=== PATIENT | male | born 1980 | race American Indian/Alaskan Native ===

== ENCOUNTER 2017-02-11 12:25 | Emergency (ER) | payer MEDICAID, OTHER ==
[2017-02-11] MEDS ORDERED: Sodium Chloride 0.9% 1,000 ML IV ONE (12:34)
--- NOTE | 2017-02-11 12:38 | EDM.PDOC ---
ED HPI NEURO - General Chief Complaint: Neurological Problem Stated Complaint: IN BY [facility] Time Seen by Provider: 02/11/17 12:27 Source of Information: Reports: Patient, EMS History Limitations: Reports: No limitations - History of Present Illness INITIAL COMMENTS - FREE TEXT/NARRATIVE: 36 yo [place] Male w/ PMHx. Epilepsy brought in by Ambulance do to family witnessed seizure activity. Pt. takes Dilantin 200mg Q AM and 300mg Q PM. Pt. admits to alot of stress with recent of and not taking medication as prescribed. No trauma Symptom Onset Date: 02/11/17 Symptom Onset Time: 11:55 Timing/Duration: Reports: Hour(s): Location (Neuro Complaint): Reports: generalized Quality (Neuro Complaint): Reports: weakness Severity: moderate Context, General: Reports: Other (Not taking Dilantin as prescribed) Associated Symptoms: Reports: weakness - Related Data Allergies/ADRs: Allergies Allergy/AdvReac Type Severity Reaction Status Date / Time Penicillins Allergy Tachycardia Verified 02/11/17 12:36 Home Meds: Home Meds Phenytoin Sodium Extended [Dilantin] 200 mg PO ACBREAKFAST 12/30/14 [History] Acetaminophen [Tylenol Extra Strength] 1,000 mg PO Q12H 11/03/15 [History] Acetaminophen [Tylenol] 325 mg PO ASDIRECTED PRN 02/11/17 [History] Phenytoin Sodium Extended 300 mg PO BEDTIME 02/11/17 [History] Past Medical History - Past Health History Medical/Surgical History: Denies Medical/Surgical History HEENT History: Reports: None Cardiovascular History: Reports: None Respiratory History: Reports: None Gastrointestinal History: Reports: None Genitourinary History: Reports: None Musculoskeletal History: Reports: None Neurological History: Reports: Seizure Psychiatric History: Reports: None Endocrine/Metabolic History: Reports: None Hematologic History: Reports: None Immunologic History: Reports: None Oncologic (Cancer) History: Reports: None Dermatologic History: Reports: None - Past Surgical History HEENT Surgical History: Reports: Other (see below) Other HEENT Surgeries/Procedures: top teeth removed Social & Family History - Tobacco Use Smoking Status *Q: Never Smoker Years of Tobacco use: 9 Used Tobacco, but Quit: Yes Month Tobacco Last Used: Second Hand Smoke Exposure: No - Alcohol Use Days Per Week of Alcohol Use: 0 - Recreational Drug Use Recreational Drug Use: No - Living Situation & Occupation Living situation: Reports: with family Occupation: employed ED ROS GENERAL - Review of Systems Review Of Systems: See Below Constitutional: Reports: weakness, decreased appetite HEENT: Reports: No symptoms Respiratory: Reports: No Symptoms Cardiovascular: Reports: No symptoms Endocrine: Reports: no symptoms GI/Abdominal: Reports: No symptoms : Reports: no symptoms Musculoskeletal: Reports: no symptoms Skin: Reports: no symptoms Neurological: Reports: Weakness Psychiatric: Reports: Depression (recent of do to cancer 02/01/2017) Hematologic/Lymphatic: Reports: no symptoms Immunologic: Reports: no symptoms ED EXAM, NEURO - Physical Exam Exam: See Below Exam Limited By: No limitations General Appearance: alert, lethargic, obese Eye Exam: bilateral eye: EOMI, PERRL Ears: normal external exam Nose: normal inspection Throat/Mouth: Normal inspection, Normal lips Head Exam: atraumatic, normocephalic Neck: normal inspection, supple Respiratory/Chest: no respiratory distress, lungs clear, no accessory muscle use Cardiovascular: normal peripheral pulses, regular rate, rhythm, no edema GI/Abdominal: normal bowel sounds, soft, non tender Neurological: alert, normal dorsiflexion, CN II-XII intact, normal plantar flexion, oriented x 3 DTR: 2+: bicep (R), bicep (L), tricep (R), tricep (L), patella (R), patella (L) , achilles (R), achilles (L) Back Exam: normal inspection Extremities: normal inspection, normal range of motion Psychiatric: depressed mood (recent of 02/01/2017) Skin Exam: Warm, Normal color, No rash Course - Vital Signs Text/Narrative:: Discussed with patient Last Recorded V/S: Last Vital Signs Temp 36.1 C 02/11/17 12:29 Pulse 63 02/11/17 14:58 Resp 20 02/11/17 14:58 BP 137/87 02/11/17 14:58 Pulse Ox 98 02/11/17 14:58 - Orders/Labs/Meds Labs: Laboratory Tests 02/11/17 02/11/17 02/11/17 Range/Units 12:45 12:45 14:15 WBC 6.7 (5.0-10.0) 10^3/uL RBC 5.02 (4.6-6.2) 10^6/uL Hgb 14.3 (14.0-18.0) g/dL Hct 43.3 (40.0-54.0) % MCV 86.3 (80-100) fL MCH 28.5 (27.0-34.0) pg MCHC 33.0 (33.0-35.0) g/dL Plt Count 218 (150-450) 10^3/uL Neut % (Auto) 68.6 (42.2-75.2) % Lymph % (Auto) 18.4 L (20.5-50.1) % [place] % (Auto) 7.7 (2-8) % Eos % (Auto) 5.2 H (1.0-3.0) % Baso % (Auto) 0.1 (0.0-1.0) % Sodium 138 (135-145) mmol/L Potassium 4.1 (3.6-5.0) mmol/L Chloride 105 (101-111) mmol/L Carbon Dioxide 26.0 (21.0-31.0) mmol/L Anion Gap 11.1 BUN 10 (7-18) mg/dL Creatinine 0.8 (0.6-1.3) mg/dL Est Cr Clr Drug Dosing TNP Estimated GFR (MDRD) > 60 BUN/Creatinine Ratio 12.50 Glucose 97 (74-105) mg/dL Calcium 8.5 (8.4-10.2) mg/dl Total Bilirubin 0.4 (0.2-1.0) mg/dL AST 29 (10-42) IU/L ALT 40 (10-60) IU/L Alkaline Phosphatase 111 (42-121) IU/L Total Protein 7.0 (6.7-8.2) g/dl Albumin 3.9 (3.2-5.5) g/dl Globulin 3.1 Albumin/Globulin Ratio 1.26 Urine Color Yellow (YELLOW) Urine Appearance Slightly cloudy (CLEAR) Urine pH 5.5 (5.0-9.0) Ur Specific [place] 1.015 (1.005-1.030) Urine Protein Negative (NEGATIVE) Urine Glucose (UA) Negative (NEGATIVE) Urine Ketones Negative (NEGATIVE) Urine Occult Blood Negative (NEGATIVE) Urine Nitrite Negative (NEGATIVE) Urine Bilirubin Negative (NEGATIVE) Urine Urobilinogen 0.2 (0.2-1.0) mg/dL Ur Leukocyte Esterase Negative (NEGATIVE) Urine RBC 0-5 /HPF Urine WBC 0-5 (0-5/HPF) /HPF Ur Epithelial Cells Few /HPF Urine Bacteria Rare (0-FEW/HPF) /HPF Urine Mucus Few H /LPF Urine Opiates Screen (NEGATIVE) Ur Oxycodone Screen (NEGATIVE) Urine Methadone Screen (NEGATIVE) Ur Barbiturates Screen (NEGATIVE) Phenytoin < 2.5 L (10-20) ug/dL U Tricyclic Antidepress (NEGATIVE) Ur Phencyclidine Scrn (NEGATIVE) Ur Amphetamine Screen (NEGATIVE) U Methamphetamines Scrn (NEGATIVE) Urine MDMA Screen (NEGATIVE) U Benzodiazepines Scrn (NEGATIVE) Urine Cocaine Screen (NEGATIVE) U Marijuana (THC) Screen (NEGATIVE) 02/11/17 Range/Units 14:15 WBC (5.0-10.0) 10^3/uL RBC (4.6-6.2) 10^6/uL Hgb (14.0-18.0) g/dL Hct (40.0-54.0) % MCV (80-100) fL MCH (27.0-34.0) pg MCHC (33.0-35.0) g/dL Plt Count (150-450) 10^3/uL Neut % (Auto) (42.2-75.2) % Lymph % (Auto) (20.5-50.1) % [place] % (Auto) (2-8) % Eos % (Auto) (1.0-3.0) % Baso % (Auto) (0.0-1.0) % Sodium (135-145) mmol/L Potassium (3.6-5.0) mmol/L Chloride (101-111) mmol/L Carbon Dioxide (21.0-31.0) mmol/L Anion Gap BUN (7-18) mg/dL Creatinine (0.6-1.3) mg/dL Est Cr Clr Drug Dosing Estimated GFR (MDRD) BUN/Creatinine Ratio Glucose (74-105) mg/dL Calcium (8.4-10.2) mg/dl Total Bilirubin (0.2-1.0) mg/dL AST (10-42) IU/L ALT (10-60) IU/L Alkaline Phosphatase (42-121) IU/L Total Protein (6.7-8.2) g/dl Albumin (3.2-5.5) g/dl Globulin Albumin/Globulin Ratio Urine Color (YELLOW) Urine Appearance (CLEAR) Urine pH (5.0-9.0) Ur Specific [place] (1.005-1.030) Urine Protein (NEGATIVE) Urine Glucose (UA) (NEGATIVE) Urine Ketones (NEGATIVE) Urine Occult Blood (NEGATIVE) Urine Nitrite (NEGATIVE) Urine Bilirubin (NEGATIVE) Urine Urobilinogen (0.2-1.0) mg/dL Ur Leukocyte Esterase (NEGATIVE) Urine RBC /HPF Urine WBC (0-5/HPF) /HPF Ur Epithelial Cells /HPF Urine Bacteria (0-FEW/HPF) /HPF Urine Mucus /LPF Urine Opiates Screen Negative (NEGATIVE) Ur Oxycodone Screen Negative (NEGATIVE) Urine Methadone Screen Negative (NEGATIVE) Ur Barbiturates Screen Positive H (NEGATIVE) Phenytoin (10-20) ug/dL U Tricyclic Antidepress Negative (NEGATIVE) Ur Phencyclidine Scrn Negative (NEGATIVE) Ur Amphetamine Screen Negative (NEGATIVE) U Methamphetamines Scrn Negative (NEGATIVE) Urine MDMA Screen Negative (NEGATIVE) U Benzodiazepines Scrn Negative (NEGATIVE) Urine Cocaine Screen Negative (NEGATIVE) U Marijuana (THC) Screen Negative (NEGATIVE) Meds: Medications Discontinued Medications Generic Name Dose Route Start Last Admin Trade Name Skyler PRN Reason Stop Dose Admin Sodium Chloride 1,000 mls @ 999 mls/hr 02/11/17 12:34 02/11/17 13:02 Normal Saline IV 02/11/17 13:34 999 mls/hr .BOLUS ONE Administration Phenytoin Sodium 1,000 mg 02/11/17 12:47 02/11/17 13:19 Phenytoin IV 02/11/17 12:48 1,000 mg ONETIME ONE Administration Phenytoin Sodium Confirm 02/11/17 13:09 02/11/17 13:26 Phenytoin Administered 02/11/17 13:10 Not Given Dose 250 mg .ROUTE .STK-MED ONE Departure - Departure Time of Disposition: 15:04 Disposition: Home, Self-Care 01 Condition: good Clinical Impression: Generalized convulsive epilepsy, Non compliance w medication regimen Forms: ED Department Discharge Additional Instructions: Rest Please follow your Doctor's advice and take your Dilantin as prescribed only ( Daily) - 200mg Q AM and 300mg Q PM F/U w/ PCP
[2017-02-11] MEDS ORDERED: Phenytoin 250 MG/5 ML SDV IV ONE (12:47)
[2017-02-11 13:08] LABS: CHLORIDE,CL 105 mmol/L (101-111); SODIUM,NA 138 mmol/L (135-145)
[2017-02-11] MEDS ORDERED: Phenytoin 250 MG/5 ML SDV ONE (13:09)
[2017-02-11 15:00] VITALS: BP 137/87
== END 2017-02-11 15:12 | disposition home or self-care (01) ==
LOC: DL.ED 12:25
DX: G40.409 Other generalized epilepsy and epileptic syndromes, not intractable, without status epilepticus (principal); Z91.14 Patient's other noncompliance with medication regimen; Z88.0 Allergy status to penicillin; Z79.899 Other long term (current) drug therapy
CPT/HCPCS: 36415; 80053; 80185; 80305; 81001; 85025; 96365; 96366; 99285; J1165; J7030; 99284

== ENCOUNTER 2017-05-10 23:34 | Emergency (ER) | payer OTHER ==
[2017-05-10 23:50] VITALS: BP 140/75
[2017-05-11] MEDS ORDERED: Aspirin 81 MG Tab.Chew PO ONE (00:09)
[2017-05-11 00:20] LABS: CHLORIDE,CL 109 mmol/L (101-111); SODIUM,NA 142 mmol/L (135-145)
--- NOTE | 2017-05-11 00:42 | EDM.PDOC ---
ED HPI GENERAL MEDICAL PROBLEM - General Chief Complaint: Chest Pain Stated Complaint: CHEST PAIN Time Seen by Provider: 05/10/17 23:40 Source of Information: Reports: Patient History Limitations: Reports: No Limitations - History of Present Illness INITIAL COMMENTS - FREE TEXT/NARRATIVE: c/o left sided chest pain with cough for 2 days, worse with coughing or movement , describes as sharp and constant. No productive cough, Smoker. occasional chills, no known fever. Sinus congestion with PND.Mild sore throat Location: Reports: Chest Left Anterior Chest Pain Score (Numeric/FACES): 7 - Related Data Allergies Allergy/AdvReac Type Severity Reaction Status Date / Time Penicillins Allergy Tachycardia Verified 05/10/17 23:51 Home Meds: Home Meds Phenytoin Sodium Extended [Dilantin] 200 mg PO ACBREAKFAST 12/30/14 [History] Acetaminophen [Tylenol Extra Strength] 1,000 mg PO Q12H 11/03/15 [History] Acetaminophen [Tylenol] 325 mg PO ASDIRECTED PRN 02/11/17 [History] Phenytoin Sodium Extended 300 mg PO BEDTIME 02/11/17 [History] Past Medical History - Past Health History Medical/Surgical History: Denies Medical/Surgical History HEENT History: Reports: None Cardiovascular History: Reports: None Respiratory History: Reports: None Gastrointestinal History: Reports: None Genitourinary History: Reports: None Musculoskeletal History: Reports: None Neurological History: Reports: Seizure Psychiatric History: Reports: None Endocrine/Metabolic History: Reports: None Hematologic History: Reports: None Immunologic History: Reports: None Oncologic (Cancer) History: Reports: None Dermatologic History: Reports: None - Infectious Disease History Infectious Disease History: Reports: None - Past Surgical History Head Surgeries/Procedures: Reports: None HEENT Surgical History: Reports: Other (See Below) Social & Family History - Tobacco Use Smoking Status *Q: Current Every Day Smoker Years of Tobacco use: 4 Packs/Tins Daily: 4 Used Tobacco, but Quit: Yes Month Tobacco Last Used: Second Hand Smoke Exposure: No - Caffeine Use Caffeine Use: Reports: Coffee, Energy Drinks, Soda, Tea - Alcohol Use Days Per Week of Alcohol Use: 0 - Recreational Drug Use Recreational Drug Use: No - Living Situation & Occupation Living situation: Reports: with Family Occupation: Employed ED ROS GENERAL - Review of Systems Review Of Systems: ROS reveals no pertinent complaints other than HPI. ED EXAM, GENERAL - Physical Exam Exam: See Below Exam Limited By: No Limitations General Appearance: Alert, Anxious, Mild Distress Eye Exam: Bilateral Eye: EOMI, PERRL Ears: Normal External Exam Nose: Normal Inspection Throat/Mouth: Normal Inspection, Normal Lips, Normal Oropharynx Head: Atraumatic, Normocephalic Neck: Normal Inspection, Non-Tender, Full Range of Motion Respiratory/Chest: No Respiratory Distress, Lungs Clear, Normal Breath Sounds Cardiovascular: Normal Peripheral Pulses, Regular Rate, Rhythm GI/Abdominal: Normal Bowel Sounds (Male) Exam: No Hernia Rectal (Males) Exam: Normal Exam, Normal Rectal Tone Neurological: Alert, Oriented, Normal Cognition Psychiatric: Normal Affect Skin Exam: Warm, Dry, Intact, Normal Color, No Rash Course - Vital Signs Last Recorded V/S: Last Vital Signs Temp 96.8 F 05/10/17 23:39 Pulse 63 05/10/17 23:39 Resp 21 H 05/10/17 23:39 BP 140/75 05/10/17 23:39 Pulse Ox 100 05/10/17 23:39 - Orders/Labs/Meds Labs: Laboratory Tests 05/10/17 05/10/17 Range/Units 23:50 23:50 WBC 9.5 (5.0-10.0) 10^3/uL RBC 5.11 (4.6-6.2) 10^6/uL Hgb 14.6 (14.0-18.0) g/dL Hct 44.2 (40.0-54.0) % MCV 86.5 (80-100) fL MCH 28.6 (27.0-34.0) pg MCHC 33.0 (33.0-35.0) g/dL Plt Count 246 (150-450) 10^3/uL Neut % (Auto) 56.6 (42.2-75.2) % Lymph % (Auto) 26.3 (20.5-50.1) % [place] % (Auto) 9.3 H (2-8) % Eos % (Auto) 7.6 H (1.0-3.0) % Baso % (Auto) 0.2 (0.0-1.0) % Sodium 142 (135-145) mmol/L Potassium 3.8 (3.6-5.0) mmol/L Chloride 109 (101-111) mmol/L Carbon Dioxide 22.0 (21.0-31.0) mmol/L Anion Gap 14.8 BUN 12 (7-18) mg/dL Creatinine 0.6 (0.6-1.3) mg/dL Est Cr Clr Drug Dosing 181.28 mL/min Estimated GFR (MDRD) > 60 BUN/Creatinine Ratio 20.00 Glucose 101 (74-105) mg/dL Calcium 8.4 (8.4-10.2) mg/dl Total Bilirubin 0.3 (0.2-1.0) mg/dL AST 22 (10-42) IU/L ALT 25 (10-60) IU/L Alkaline Phosphatase 128 H (42-121) IU/L Troponin I < 0.02 (0.00-0.02) ng/ml Total Protein 7.0 (6.7-8.2) g/dl Albumin 3.7 (3.2-5.5) g/dl Globulin 3.3 Albumin/Globulin Ratio 1.12 Amylase 49 (28-100) U/L Lipase 27 (22-51) U/L Meds: Medications Discontinued Medications Generic Name Dose Route Start Last Admin Trade Name Freq PRN Reason Stop Dose Admin Aspirin 324 mg 05/11/17 00:09 05/11/17 00:12 Aspirin PO 05/11/17 00:10 324 mg ONETIME ONE Administration Benzonatate 200 mg 05/11/17 00:43 05/11/17 00:47 Tessalon Perles PO 05/11/17 00:44 200 mg ONETIME ONE Administration - Radiology Interpretation Free Text/Narrative:: CXR no pneumonia Departure - Departure Time of Disposition: 00:37 Disposition: Home, Self-Care 01 Condition: Good Clinical Impression: URI (upper respiratory infection) Qualifiers: URI type: unspecified viral URI Qualified Code(s): J06.9 - Acute upper respiratory infection, unspecified - Discharge Information Instructions: Acute Bronchitis, [id number] Forms: ED Department Discharge Additional Instructions: increase fluids alternate tylenol and ibuprofen every 4 hours tesselon pearles 200mg every 8 hours as needed for cough muccinex or robitussin per package instructions. follow up in one week if continued cough
[2017-05-11] MEDS ORDERED: Benzonatate 100 MG Cap PO ONE (00:43)
--- NOTE | 2017-05-11 18:20 | EKG ---
05/10/2017 - OCTAVIANO MENESES - Netta reviewed the EKG and agree with the machine's reading. [facility] /[id number]
== END 2017-05-11 00:48 | disposition home or self-care (01) ==
LOC: DL.ED 23:34
DX: J06.9 Acute upper respiratory infection, unspecified (principal); F17.210 Nicotine dependence, cigarettes, uncomplicated; Z79.899 Other long term (current) drug therapy; Z88.0 Allergy status to penicillin
CPT/HCPCS: 36415; 71020; 80053; 82150; 83690; 84484; 85025; 99285; A9270

== ENCOUNTER 2017-07-19 20:11 | Emergency (ER) | payer OTHER ==
[2017-07-19 20:25] VITALS: BP 132/83
[2017-07-19] MEDS ORDERED: Albuterol/Ipratropium 3.0-0.5 MG/3 ML Neb Soln NEB ONE (20:42)
[2017-07-19] MEDS ORDERED: Codeine/Promethazine 10-6.25 MG/5 ML Syrup 5 ML UD Cup PO ONE (21:02)
[2017-07-19] MEDS ORDERED: Azithromycin 250 MG Tab PO ONE (21:02)
--- NOTE | 2017-07-19 21:07 | EDM.PDOC ---
ED HPI GENERAL MEDICAL PROBLEM - General Chief Complaint: ENT Problem Stated Complaint: HARD TO BREATH, BAD COLD, [id number] Time Seen by Provider: 07/19/17 21:02 Source of Information: Reports: Patient History Limitations: Reports: No Limitations - History of Present Illness INITIAL COMMENTS - FREE TEXT/NARRATIVE: sick past 3 days with cough congestion. Throat Pain Score (Numeric/FACES): 8 - Related Data Allergies Allergy/AdvReac Type Severity Reaction Status Date / Time Penicillins Allergy Tachycardia Verified 07/19/17 20:19 Home Meds: Home Meds Phenytoin Sodium Extended [Dilantin] 200 mg PO ACBREAKFAST 12/30/14 [History] Acetaminophen [Tylenol Extra Strength] 1,000 mg PO Q12H 11/03/15 [History] Acetaminophen [Tylenol] 325 mg PO ASDIRECTED PRN 02/11/17 [History] Phenytoin Sodium Extended 300 mg PO BEDTIME 02/11/17 [History] Past Medical History - Past Health History Medical/Surgical History: Denies Medical/Surgical History HEENT History: Reports: None Cardiovascular History: Reports: None Respiratory History: Reports: None Gastrointestinal History: Reports: None Genitourinary History: Reports: None Musculoskeletal History: Reports: None Neurological History: Reports: Seizure Psychiatric History: Reports: None Endocrine/Metabolic History: Reports: None Hematologic History: Reports: None Immunologic History: Reports: None Oncologic (Cancer) History: Reports: None Dermatologic History: Reports: None - Infectious Disease History Infectious Disease History: Reports: None - Past Surgical History Head Surgeries/Procedures: Reports: None HEENT Surgical History: Reports: Other (See Below) Other HEENT Surgeries/Procedures: teeth were surgically removed Social & Family History - Family History Family Medical History: Noncontributory - Tobacco Use Smoking Status *Q: Current Every Day Smoker Years of Tobacco use: 1 Packs/Tins Daily: 2 Used Tobacco, but Quit: Yes Month Tobacco Last Used: Second Hand Smoke Exposure: No - Caffeine Use Caffeine Use: Reports: Coffee, Soda - Alcohol Use Days Per Week of Alcohol Use: 0 - Recreational Drug Use Recreational Drug Use: No - Living Situation & Occupation Living situation: Reports: with Family Occupation: Employed ED ROS GENERAL - Review of Systems Review Of Systems: ROS reveals no pertinent complaints other than HPI. ED EXAM, GENERAL - Physical Exam Exam: See Below Exam Limited By: No Limitations General Appearance: Alert, WD/WN, Mild Distress, Other (cough spasms) Ears: Hearing Grossly Normal Throat/Mouth: Normal Voice, No Airway Compromise Head: Atraumatic Neck: Non-Tender, Full Range of Motion Respiratory/Chest: No Respiratory Distress, No Accessory Muscle Use, Decreased Breath Sounds, Rhonchi, Wheezing Cardiovascular: Regular Rate, Rhythm GI/Abdominal: Soft, Non-Tender Neurological: Alert, Oriented, Normal Cognition, Normal Gait, No Motor/Sensory Deficits Psychiatric: Flat Affect Skin Exam: Warm, Dry, Normal Color Lymphatic: No Adenopathy Course - Vital Signs Last Recorded V/S: Last Vital Signs Temp 37.4 C 07/19/17 20:24 Pulse 77 07/19/17 20:24 Resp 18 07/19/17 20:24 BP 132/83 07/19/17 20:24 Pulse Ox 98 07/19/17 20:24 - Orders/Labs/Meds Orders: Active Orders 24 hr Category Date Time Status RT Aerosol Therapy [RC] ASDIRECTED Care 07/19/17 20:42 Active Azithromycin [Zithromax] Med 07/19/17 21:02 Once 500 mg PO ONETIME ONE Codeine/Promethazine [Phenergan with Codeine] Med 07/19/17 21:02 Once 5 ml PO ONETIME ONE Meds: Medications Discontinued Medications Generic Name Dose Route Start Last Admin Trade Name Freq PRN Reason Stop Dose Admin Albuterol/Ipratropium 3 ml 07/19/17 20:42 07/19/17 20:49 Duoneb 3.0-0.5 Mg/3 Ml NEB 07/19/17 20:43 3 ml ONETIME ONE Administration - Re-Assessments/Exams Free Text/Narrative Re-Assessment/Exam: 07/19/17 21:05 s/p duoneb = 80% cleared Departure - Departure Time of Disposition: 21:05 Disposition: Home, Self-Care 01 Condition: Good Clinical Impression: Acute bronchitis with bronchospasm - Discharge Information Instructions: Acute Bronchitis, [id number] Additional Instructions: 1) rest 2) don't sleep flat at night 3) take neb 3 times daily for cough & wheeze 4) follow up at clinic or recheck as needed rx given; z-sage phenergan codeine syrup qid prn x 4 oz albuterol 2.5mg solution tid prn - My Orders Last 24 Hours: My Active Orders 07/19/17 20:42 RT Aerosol Therapy [RC] ASDIRECTED 07/19/17 21:02 Azithromycin [Zithromax] 500 mg PO ONETIME ONE Codeine/Promethazine [Phenergan with Codeine] 5 ml PO ONETIME ONE - Assessment/Plan Last 24 Hours: My Active Orders 07/19/17 20:42 RT Aerosol Therapy [RC] ASDIRECTED 07/19/17 21:02 Azithromycin [Zithromax] 500 mg PO ONETIME ONE Codeine/Promethazine [Phenergan with Codeine] 5 ml PO ONETIME ONE
== END 2017-07-19 21:11 | disposition home or self-care (01) ==
LOC: DL.ED 20:11
DX: J20.9 Acute bronchitis, unspecified (principal); F17.210 Nicotine dependence, cigarettes, uncomplicated; Z88.0 Allergy status to penicillin
CPT/HCPCS: 99283; A9270

== ENCOUNTER 2017-08-26 23:15 | Emergency (ER) | payer OTHER ==
[2017-08-26] MEDS ORDERED: Cyclobenzaprine 10 MG Tab PO ONE (23:16)
[2017-08-26] MEDS ORDERED: Acetaminophen/HYDROcodone 325-10 MG Tab PO ONE (23:16)
[2017-08-26 23:26] VITALS: BP 149/77
[2017-08-26] MEDS ORDERED: Ketorolac 30 MG/ML SDV IM ONE (23:46)
--- NOTE | 2017-08-26 23:52 | EDM.PDOC ---
ED HPI GENERAL MEDICAL PROBLEM - General Chief Complaint: Back Pain or Injury Stated Complaint: BACK PAIN Time Seen by Provider: 08/26/17 23:47 Source of Information: Reports: Patient History Limitations: Reports: No Limitations - History of Present Illness INITIAL COMMENTS - FREE TEXT/NARRATIVE: h/o LBP has MRI 2 years ago was told need to repeat and reschedule but they never called him back. works doing lot of lifting and back acted up again. Lower Back Pain Score (Numeric/FACES): 9 - Related Data Allergies Allergy/AdvReac Type Severity Reaction Status Date / Time Penicillins Allergy Tachycardia Verified 08/26/17 23:26 Home Meds: Home Meds Phenytoin Sodium Extended [Dilantin] 200 mg PO ACBREAKFAST 12/30/14 [History] Acetaminophen [Tylenol Extra Strength] 1,000 mg PO Q12H 11/03/15 [History] Acetaminophen [Tylenol] 325 mg PO ASDIRECTED PRN 02/11/17 [History] Phenytoin Sodium Extended 300 mg PO BEDTIME 02/11/17 [History] Past Medical History - Past Health History Medical/Surgical History: Denies Medical/Surgical History HEENT History: Reports: Impaired Vision Cardiovascular History: Reports: Hypertension Other Cardiovascular History: Stop taking medication 2 years ago- hypertension had resolved Respiratory History: Reports: None Gastrointestinal History: Reports: None Genitourinary History: Reports: None Musculoskeletal History: Reports: Arthritis, Back Pain, Chronic Neurological History: Reports: Seizure Other Neuro History: last seizure in december 2016 Psychiatric History: Reports: None Endocrine/Metabolic History: Reports: None Hematologic History: Reports: None Immunologic History: Reports: None Oncologic (Cancer) History: Reports: None Dermatologic History: Reports: None - Infectious Disease History Infectious Disease History: Reports: None - Past Surgical History Head Surgeries/Procedures: Reports: None HEENT Surgical History: Reports: Other (See Below) Other HEENT Surgeries/Procedures: teeth were surgically removed Social & Family History - Family History Family Medical History: Noncontributory - Tobacco Use Smoking Status *Q: Current Every Day Smoker Years of Tobacco use: 7 Packs/Tins Daily: 0.5 Used Tobacco, but Quit: Yes Month Tobacco Last Used: Second Hand Smoke Exposure: No - Caffeine Use Caffeine Use: Reports: Coffee - Alcohol Use Days Per Week of Alcohol Use: 0 - Recreational Drug Use Recreational Drug Use: No - Living Situation & Occupation Living situation: Reports: with Family Occupation: Employed ED ROS GENERAL - Review of Systems Review Of Systems: ROS reveals no pertinent complaints other than HPI. ED EXAM,LOWER BACK PAIN/INJURY - Physical Exam Exam: See Below Exam Limited By: No Limitations General Appearance: Alert, WD/WN, Mild Distress, Moderate Distress, Other (lbp) Ears: Hearing Grossly Normal Throat/Mouth: Normal Voice, No Airway Compromise Head: Atraumatic Neck: Non-Tender, Full Range of Motion Respiratory/Chest: No Respiratory Distress Cardiovascular: Regular Rate, Rhythm GI/Abdominal: Soft, Non-Tender Back Exam: Muscle Spasm, Paraspinal Tenderness, Other (bilat L2-3-4-5-S1 with radiculopathy, gait limited to pain) Neurological: Alert, Normal Mood/Affect, No Motor/Sensory Deficits Psychiatric: Tearful Skin Exam: Warm, Dry, Normal Color Lymphatic: No Adenopathy Course - Vital Signs Last Recorded V/S: Last Vital Signs Temp 36.0 C 08/26/17 23:21 Pulse 67 08/26/17 23:21 Resp 16 08/26/17 23:21 BP 149/77 H 08/26/17 23:21 Pulse Ox 98 08/26/17 23:21 - Orders/Labs/Meds Meds: Medications Discontinued Medications Generic Name Dose Route Start Last Admin Trade Name Skyler PRN Reason Stop Dose Admin Ketorolac Tromethamine 30 mg 08/26/17 23:46 Toradol IM 08/26/17 23:47 ONETIME ONE Departure - Departure Time of Disposition: 23:50 Disposition: Home, Self-Care 01 Condition: Good Clinical Impression: Degeneration of lumbosacral intervertebral disc, Lumbar radiculopathy, acute - Discharge Information Instructions: Back Pain, Adult, [id number] Additional Instructions: 1) rest 2) avoid bending lifting straining next 48 hours 3) try heat or ice to sore areas rx given; flexeril 10mg bid prn x 12 vicodin 5/325mg bid prn x 12
[2017-08-26] MEDS ORDERED: Cyclobenzaprine 10 MG Tab ONE (23:58)
[2017-08-26] MEDS ORDERED: Acetaminophen/HYDROcodone 325-10 MG Tab ONE (23:59)
== END 2017-08-27 00:03 | disposition home or self-care (01) ==
LOC: DL.ED 23:15
DX: M51.17 Intervertebral disc disorders with radiculopathy, lumbosacral region (principal); I10 Essential (primary) hypertension; F17.210 Nicotine dependence, cigarettes, uncomplicated; Z88.0 Allergy status to penicillin
CPT/HCPCS: 96372; 99283; A9270; J1885

== ENCOUNTER 2017-09-16 22:41 | Emergency (ER) | payer OTHER ==
[2017-09-16] MEDS ORDERED: Acetaminophen/HYDROcodone 325-10 MG Tab PO ONE (23:37)
--- NOTE | 2017-09-16 23:43 | EDM.PDOC ---
ED HPI GENERAL MEDICAL PROBLEM - General Chief Complaint: Skin Complaint Stated Complaint: PAIN IN BUTT AREA [id number] Time Seen by Provider: 09/16/17 23:38 Source of Information: Reports: Patient History Limitations: Reports: No Limitations - History of Present Illness INITIAL COMMENTS - FREE TEXT/NARRATIVE: c/o a palpable painful lump in rectum Left Rectal Pain Score (Numeric/FACES): 6 - Related Data Allergies Allergy/AdvReac Type Severity Reaction Status Date / Time Penicillins Allergy Tachycardia Verified 09/16/17 22:55 Home Meds: Home Meds Phenytoin Sodium Extended [Dilantin] 200 mg PO ACBREAKFAST 12/30/14 [History] Acetaminophen [Tylenol Extra Strength] 1,000 mg PO Q12H 11/03/15 [History] Acetaminophen [Tylenol] 325 mg PO ASDIRECTED PRN 02/11/17 [History] Phenytoin Sodium Extended 300 mg PO BEDTIME 02/11/17 [History] Past Medical History - Past Health History Medical/Surgical History: Denies Medical/Surgical History HEENT History: Reports: Impaired Vision Cardiovascular History: Reports: Hypertension Other Cardiovascular History: Stop taking medication 2 years ago- hypertension had resolved Respiratory History: Reports: None Gastrointestinal History: Reports: None Genitourinary History: Reports: None Musculoskeletal History: Reports: Arthritis, Back Pain, Chronic Neurological History: Reports: Seizure Other Neuro History: last seizure in december 2016 Psychiatric History: Reports: None Endocrine/Metabolic History: Reports: None Hematologic History: Reports: None Immunologic History: Reports: None Oncologic (Cancer) History: Reports: None Dermatologic History: Reports: None - Infectious Disease History Infectious Disease History: Reports: None - Past Surgical History Head Surgeries/Procedures: Reports: None HEENT Surgical History: Reports: Other (See Below) Other HEENT Surgeries/Procedures: teeth were surgically removed Social & Family History - Family History Family Medical History: Noncontributory - Tobacco Use Smoking Status *Q: Current Every Day Smoker Years of Tobacco use: 1 Packs/Tins Daily: 4 Used Tobacco, but Quit: Yes Month Tobacco Last Used: Second Hand Smoke Exposure: No - Caffeine Use Caffeine Use: Reports: Soda - Alcohol Use Days Per Week of Alcohol Use: 0 - Recreational Drug Use Recreational Drug Use: No - Living Situation & Occupation Living situation: Reports: with Family Occupation: Employed ED ROS GENERAL - Review of Systems Review Of Systems: ROS reveals no pertinent complaints other than HPI. ED EXAM, SKIN/RASH Exam: See Below Exam Limited By: No Limitations General Appearance: Alert, WD/WN, Mild Distress, Other (pain) Ears: Hearing Grossly Normal Throat/Mouth: Normal Voice, No Airway Compromise Head: Atraumatic Neck: Non-Tender, Full Range of Motion Respiratory/Chest: No Respiratory Distress Cardiovascular: Regular Rate, Rhythm GI/Abdominal: Soft, Non-Tender Rectal (Males) Exam: Hemorrhoids, Other (9 o'clock, 1/4" size) Neurological: Alert, Oriented, Normal Cognition, Normal Gait, No Motor/Sensory Deficits Psychiatric: Tearful Skin: Warm, Dry, Normal Color Lymphatic: No Adenopathy Course - Vital Signs Last Recorded V/S: Last Vital Signs Temp 36.3 C 09/16/17 22:49 Pulse 73 09/16/17 22:49 Resp 18 09/16/17 22:49 BP 129/66 09/16/17 22:49 Pulse Ox 99 09/16/17 22:49 - Orders/Labs/Meds Orders: Active Orders 24 hr Category Date Time Status Acetaminophen/HYDROcodone [[place] 325-10 MG] Med 09/16/17 23:37 Once 1 tab PO ONETIME ONE Departure - Departure Time of Disposition: 23:40 Disposition: Home, Self-Care 01 Condition: Good Clinical Impression: Acute hemorrhoid - Discharge Information Instructions: Hemorrhoids, [id number] Additional Instructions: 1) rest 2) sitz bath 3) see family doctor tomorrow for SURGICAL REFERRAL for HAEMORRHOID REMOVAL rx givne; anusol HC suppos daily x 1 week vicodin 5/325mg bid prn x 12 - My Orders Last 24 Hours: My Active Orders 09/16/17 23:37 Acetaminophen/HYDROcodone [[place] 325-10 MG] 1 tab PO ONETIME ONE - Assessment/Plan Last 24 Hours: My Active Orders 09/16/17 23:37 Acetaminophen/HYDROcodone [[place] 325-10 MG] 1 tab PO ONETIME ONE
[2017-09-16 23:52] VITALS: BP 125/66
== END 2017-09-16 23:48 | disposition home or self-care (01) ==
LOC: DL.ED 22:41
DX: K64.9 Unspecified hemorrhoids (principal); F17.210 Nicotine dependence, cigarettes, uncomplicated; Z88.0 Allergy status to penicillin
CPT/HCPCS: 99282; A9270

== ENCOUNTER 2017-12-28 22:05 | Emergency (ER) | payer OTHER ==
[2017-12-28 22:27] VITALS: BP 109/79
--- NOTE | 2017-12-28 22:32 | EDM.PDOC ---
ED HPI GENERAL MEDICAL PROBLEM - General Chief Complaint: Chest Pain Stated Complaint: PAIN IN CHEST/BACK [id number] Time Seen by Provider: 12/28/17 22:15 Source of Information: Reports: Patient History Limitations: Reports: No Limitations - History of Present Illness INITIAL COMMENTS - FREE TEXT/NARRATIVE: This 37 yo male patient reports to the ED with chest pain. The patient reports his pain started last night and is better today, but continues to hurt. The patient also reports his lower back pain is bothering him. The patient reports that his current pain is a 5/10, but his pain has different episodes of sharp pain. The patient reports most of the pain is over his heart. The patient reports he was at work when his pain started. The patient reports no history of trauma or falls. The patient does have a history of seizures, but no recent seizures. 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 Left Chest Pain Score (Numeric/FACES): 9 - Related Data Allergies Allergy/AdvReac Type Severity Reaction Status Date / Time Penicillins Allergy Tachycardia Verified 12/28/17 22:27 tramadol Allergy Other Verified 12/28/17 22:27 Home Meds: Home Meds Phenytoin Sodium Extended [Dilantin] 200 mg PO ACBREAKFAST 12/30/14 [History] Acetaminophen [Tylenol Extra Strength] 1,000 mg PO Q12H 11/03/15 [History] Acetaminophen [Tylenol] 650 mg PO Q6H PRN 02/11/17 [History] Phenytoin Sodium Extended 300 mg PO BEDTIME 02/11/17 [History] Triamcinolone Acetonide [Triamcinolone Acetonide 0.1% Oint] 1 applic TOP ASDIRECTED 10/15/17 [History] Past Medical History - Past Health History Medical/Surgical History: Denies Medical/Surgical History HEENT History: Reports: Impaired Vision Cardiovascular History: Reports: Hypertension Other Cardiovascular History: Stop taking medication 2 years ago- hypertension had resolved Respiratory History: Reports: None Gastrointestinal History: Reports: None Genitourinary History: Reports: None Musculoskeletal History: Reports: Arthritis, Back Pain, Chronic Neurological History: Reports: Seizure Other Neuro History: last seizure in when he had hemorrhoid surg Psychiatric History: Reports: None Endocrine/Metabolic History: Reports: None Hematologic History: Reports: None Immunologic History: Reports: None Oncologic (Cancer) History: Reports: None Dermatologic History: Reports: Eczema - Infectious Disease History Infectious Disease History: Reports: None - Past Surgical History Head Surgeries/Procedures: Reports: None HEENT Surgical History: Reports: Other (See Below) Other HEENT Surgeries/Procedures: teeth were surgically removed Cardiovascular Surgical History: Reports: None GI Surgical History: Reports: None Social & Family History - Family History Family Medical History: Noncontributory - Tobacco Use Smoking Status *Q: Former Smoker Years of Tobacco use: 5 Packs/Tins Daily: 4 Used Tobacco, but Quit: Yes Month Tobacco Last Used: Second Hand Smoke Exposure: Yes - Caffeine Use Caffeine Use: Reports: Soda Caffeine Use Comment: 5 cans - Alcohol Use Days Per Week of Alcohol Use: 0 - Recreational Drug Use Recreational Drug Use: No - Living Situation & Occupation Living situation: Reports: with Family Occupation: Employed ED ROS GENERAL - Review of Systems Review Of Systems: ROS reveals no pertinent complaints other than HPI. ED EXAM, GENERAL - Physical Exam Exam: See Below General Appearance: Alert, WD/WN, Mild Distress, Obese Eye Exam: Bilateral Eye: EOMI, Normal Inspection, PERRL Ears: Normal External Exam, Normal Canal, Hearing Grossly Normal, Normal TMs Nose: Normal Inspection, Normal Mucosa, No Blood Throat/Mouth: Normal Inspection Head: Atraumatic, Normocephalic Neck: Normal Inspection, Supple, Non-Tender, Full Range of Motion Respiratory/Chest: No Respiratory Distress, Lungs Clear, Normal Breath Sounds, No Accessory Muscle Use, Other (The patient has tenderness to palpation of the left pectoral musculature) Cardiovascular: Normal Peripheral Pulses, Regular Rate, Rhythm, No Edema, No Gallop, No JVD, No Murmur, No Rub GI/Abdominal: Normal Bowel Sounds, Soft, Non-Tender, No Organomegaly, No Distention, No Abnormal Bruit, No Mass, Other (obese) (Male) Exam: Deferred Rectal (Males) Exam: Deferred Back Exam: Normal Inspection, Full Range of Motion, NT Extremities: Normal Inspection, Normal Range of Motion, Non-Tender, Normal Capillary Refill, No Pedal Edema Neurological: Alert, Oriented, CN II-XII Intact, Normal Cognition, Normal Gait Psychiatric: Anxious Skin Exam: Warm, Dry, Intact, Normal Color, No Rash Lymphatic: No Adenopathy Course - Vital Signs Last Recorded V/S: Last Vital Signs Temp 36.3 C 12/28/17 22:25 Pulse 52 L 12/28/17 22:25 Resp 21 H 12/28/17 22:25 BP 109/79 12/28/17 22:25 Pulse Ox 99 12/28/17 22:25 - Orders/Labs/Meds Orders: Active Orders 24 hr Category Date Time Status EKG Documentation Completion [RC] STAT Care 12/28/17 22:11 Active Labs: Laboratory Tests 12/28/17 12/28/17 12/28/17 Range/Units 22:25 22:25 22:25 WBC 6.6 (5.0-10.0) 10^3/uL RBC 5.01 (4.6-6.2) 10^6/uL Hgb 14.6 (14.0-18.0) g/dL Hct 43.6 (40.0-54.0) % MCV 87.0 (80-100) fL MCH 29.1 (27.0-34.0) pg MCHC 33.5 (33.0-35.0) g/dL Plt Count 212 (150-450) 10^3/uL Neut % (Auto) 53.7 (42.2-75.2) % Lymph % (Auto) 25.6 (20.5-50.1) % [place] % (Auto) 13.0 H (2-8) % Eos % (Auto) 7.5 H (1.0-3.0) % Baso % (Auto) 0.2 (0.0-1.0) % Sodium 135 (135-145) mmol/L Potassium 3.4 L (3.6-5.0) mmol/L Chloride 105 (101-111) mmol/L Carbon Dioxide 21.0 (21.0-31.0) mmol/L Anion Gap 12.4 BUN 10 (7-18) mg/dL Creatinine 0.7 (0.6-1.3) mg/dL Est Cr Clr Drug Dosing 153.89 mL/min Estimated GFR (MDRD) > 60 BUN/Creatinine Ratio 14.28 Glucose 134 H (74-105) mg/dL Lactic Acid 2.5 H (0.5-2.2) mmol/L Calcium 8.1 L (8.4-10.2) mg/dl Total Bilirubin 0.2 (0.2-1.0) mg/dL AST 32 (10-42) IU/L ALT 25 (10-60) IU/L Alkaline Phosphatase 113 (42-121) IU/L Troponin I < 0.02 (0.00-0.02) ng/ml Total Protein 7.0 (6.7-8.2) g/dl Albumin 3.6 (3.2-5.5) g/dl Globulin 3.4 Albumin/Globulin Ratio 1.06 Departure - Departure Time of Disposition: 23:30 Disposition: Home, Self-Care 01 Condition: Fair Clinical Impression: Chest wall muscle strain Qualifiers: Encounter type: initial encounter Qualified Code(s): S29.011A - Strain of muscle and tendon of front wall of thorax, initial encounter Instructions: Chest Wall Pain, [id number], Muscle Strain, [id number] Forms: ED Department Discharge Care Plan Goals: The patient was advised of the examination, lab, EKG and x-ray results during the visit. The patient was encouraged to rest and do some mild stretching of the chest wall musculature. If the patient has any additional symptoms or concerns, the patient should follow-up with his primary care facility or return to the emergency department. - My Orders Last 24 Hours: My Active Orders 12/28/17 22:11 EKG Documentation Completion [RC] STAT - Assessment/Plan Last 24 Hours: My Active Orders 12/28/17 22:11 EKG Documentation Completion [RC] STAT
[2017-12-28 22:51] LABS: CHLORIDE,CL 105 mmol/L (101-111); SODIUM,NA 135 mmol/L (135-145)
--- NOTE | 2018-01-01 11:42 | EKG ---
12/28/2017 - OCTAVIANO MENESES - EKG shows a heart rate of 52 beats per minute, sinus bradycardia, normal axis, normal QRS complex, no ST segment or T-wave changes. [facility] /[id number]
== END 2017-12-28 23:35 | disposition home or self-care (01) ==
LOC: DL.ED 22:05
DX: S29.011A Strain of muscle and tendon of front wall of thorax, initial encounter (principal); Z88.0 Allergy status to penicillin; Z88.5 Allergy status to narcotic agent; Z87.891 Personal history of nicotine dependence; X58.XXXA Exposure to other specified factors, initial encounter
CPT/HCPCS: 36415; 71046; 80053; 83605; 84484; 85025; 93005; 99285

== ENCOUNTER 2018-02-27 00:26 | Emergency (ER) | payer OTHER ==
[2018-02-27] MEDS ORDERED: Sodium Chloride 0.9% 1,000 ML IV ONE (00:45)
--- NOTE | 2018-02-27 00:58 | EDM.PDOC ---
ED HPI GENERAL MEDICAL PROBLEM - General Chief Complaint: ENT Problem Stated Complaint: BLOODY NOSE [id number] Time Seen by Provider: 02/27/18 00:45 Source of Information: Reports: Half-Way Records History Limitations: Reports: No Limitations - History of Present Illness INITIAL COMMENTS - FREE TEXT/NARRATIVE: This 37 yo male patient reports to the ED due to a nose bleed. The patient reports his nose started bleeding last evening and bled for 2 hours. According to the patient, the nose bleed stopped at 2230. The patient reports that he started to have a headache when his nose stopped bleeding. The patient reports that he took Tylenol ([id number]) for his headache. When asked when he took the Tylenol, the patient report taking the Tylenol at 1930. The patient also reports some abdominal pain. The patient reports that while he was attempting to have a bowel movement his abdomen started hurting. The patient reports that he thinks it is his hormones or hemorrhoids causing abdominal pain. The patient was asked if his abdomen hurts or his anus. The patient thought that it was his anus. The patient also reports that he has been "fevered" throughout the evening. Onset: Today Onset Date: 02/26/18 Onset Time: 20:30 Duration: Resolved Prior to Arrival (nosebleed), Other (The patient reports his headache started at 2230 (after the nosebleed stopped). The patient also reports abdominal pain earlier today. 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 Generalized Pain Score (Numeric/FACES): 8 - Related Data Allergies Allergy/AdvReac Type Severity Reaction Status Date / Time Penicillins Allergy Tachycardia Verified 02/27/18 00:44 tramadol Allergy Other Verified 02/27/18 00:44 Home Meds: Home Meds Phenytoin Sodium Extended [Dilantin] 200 mg PO ACBREAKFAST 12/30/14 [History] Acetaminophen [Tylenol Extra Strength] 1,000 mg PO Q12H 11/03/15 [History] Acetaminophen [Tylenol] 650 mg PO Q6H PRN 02/11/17 [History] Phenytoin Sodium Extended 300 mg PO BEDTIME 02/11/17 [History] Triamcinolone Acetonide [Triamcinolone Acetonide 0.1% Oint] 1 applic TOP ASDIRECTED 10/15/17 [History] Past Medical History - Past Health History Medical/Surgical History: Denies Medical/Surgical History HEENT History: Reports: Impaired Vision Cardiovascular History: Reports: Hypertension Other Cardiovascular History: Stop taking medication 2 years ago- hypertension had resolved Respiratory History: Reports: None Gastrointestinal History: Reports: None Genitourinary History: Reports: None Musculoskeletal History: Reports: Arthritis, Back Pain, Chronic Neurological History: Reports: Seizure Other Neuro History: last seizure in when he had hemorrhoid surg Psychiatric History: Reports: None Endocrine/Metabolic History: Reports: None Hematologic History: Reports: None Immunologic History: Reports: None Oncologic (Cancer) History: Reports: None Dermatologic History: Reports: Eczema - Infectious Disease History Infectious Disease History: Reports: None - Past Surgical History Head Surgeries/Procedures: Reports: None HEENT Surgical History: Reports: Other (See Below) Other HEENT Surgeries/Procedures: teeth were surgically removed Cardiovascular Surgical History: Reports: None GI Surgical History: Reports: None Social & Family History - Family History Family Medical History: Noncontributory - Tobacco Use Smoking Status *Q: Current Every Day Smoker Years of Tobacco use: 4 Packs/Tins Daily: 4 Used Tobacco, but Quit: Yes Month/Year Tobacco Last Used: Second Hand Smoke Exposure: Yes - Caffeine Use Caffeine Use: Reports: Soda, Tea Caffeine Use Comment: 5 cans - Alcohol Use Days Per Week of Alcohol Use: 0 - Recreational Drug Use Recreational Drug Use: No - Living Situation & Occupation Living situation: Reports: with Family Occupation: Employed ED ROS GENERAL - Review of Systems Review Of Systems: ROS reveals no pertinent complaints other than HPI. ED EXAM, GENERAL - Physical Exam Exam: See Below Exam Limited By: No Limitations General Appearance: Alert, WD/WN, Mild Distress, Obese Eye Exam: Bilateral Eye: EOMI, Normal Inspection, PERRL Ears: Normal External Exam, Normal Canal, Hearing Grossly Normal, Normal TMs Nose: Other (dried blood in right nare) Throat/Mouth: Normal Inspection, Normal Lips, Normal Teeth, Normal Gums, Normal Oropharynx, Normal Voice, No Airway Compromise Head: Atraumatic, Normocephalic Neck: Normal Inspection, Supple, Non-Tender, Full Range of Motion Respiratory/Chest: No Respiratory Distress, Lungs Clear, Normal Breath Sounds, No Accessory Muscle Use, Chest Non-Tender Cardiovascular: Normal Peripheral Pulses, Regular Rate, Rhythm, No Edema, No Gallop, No JVD, No Murmur, No Rub GI/Abdominal: Normal Bowel Sounds, Soft, Non-Tender, No Organomegaly, No Distention, No Abnormal Bruit, No Mass, Pelvis Stable, Other (morbid obesity ) (Male) Exam: Deferred Rectal (Males) Exam: Deferred Back Exam: Normal Inspection, Full Range of Motion, NT Extremities: Normal Inspection, Normal Range of Motion, Non-Tender, Normal Capillary Refill, No Pedal Edema Neurological: Alert, Oriented, CN II-XII Intact, Normal Cognition, Normal Gait Psychiatric: Normal Affect, Normal Mood Skin Exam: Warm, Dry, Intact, Normal Color, No Rash Lymphatic: No Adenopathy Course - Vital Signs Last Recorded V/S: Last Vital Signs Temp 36.6 C 02/27/18 00:30 Pulse 70 02/27/18 00:30 Resp 20 02/27/18 00:30 BP 136/106 H 02/27/18 00:30 Pulse Ox 99 02/27/18 00:30 - Orders/Labs/Meds Orders: Active Orders 24 hr Category Date Time Status DRUG SCREEN URINE BIORAD [URCHEM] Stat Lab 02/27/18 00:46 Ordered UA W/MICROSCOPIC [URIN] Stat Lab 02/27/18 00:46 Ordered Sodium Chloride 0.9% [Normal Saline] 1,000 ml Med 02/27/18 00:45 Ordered IV .BOLUS Medication Orders Sodium Chloride (Normal Saline) 1,000 mls @ 999 mls/hr IV .BOLUS ONE Stop: 02/27/18 01:45 Last Admin: 02/27/18 01:06 Dose: 999 mls/hr Labs: Laboratory Tests 02/27/18 02/27/18 02/27/18 Range/Units 00:55 00:55 00:57 WBC 10.5 H (5.0-10.0) 10^3/uL RBC 4.93 (4.6-6.2) 10^6/uL Hgb 14.2 (14.0-18.0) g/dL Hct 43.0 (40.0-54.0) % MCV 87.2 (80-100) fL MCH 28.8 (27.0-34.0) pg MCHC 33.0 (33.0-35.0) g/dL Plt Count 248 (150-450) 10^3/uL Neut % (Auto) 60.1 (42.2-75.2) % Lymph % (Auto) 24.5 (20.5-50.1) % [place] % (Auto) 8.9 H (2-8) % Eos % (Auto) 6.3 H (1.0-3.0) % Baso % (Auto) 0.2 (0.0-1.0) % Sodium 136 (135-145) mmol/L Potassium 3.8 (3.6-5.0) mmol/L Chloride 105 (101-111) mmol/L Carbon Dioxide 25.0 (21.0-31.0) mmol/L Anion Gap 9.8 BUN 15 (7-18) mg/dL Creatinine 0.8 (0.6-1.3) mg/dL Est Cr Clr Drug Dosing 134.65 mL/min Estimated GFR (MDRD) > 60 BUN/Creatinine Ratio 18.75 Glucose 97 (74-105) mg/dL Calcium 8.8 (8.4-10.2) mg/dl Total Bilirubin 0.5 (0.2-1.0) mg/dL AST 22 (10-42) IU/L ALT 21 (10-60) IU/L Alkaline Phosphatase 123 H (42-121) IU/L Total Protein 6.9 (6.7-8.2) g/dl Albumin 3.7 (3.2-5.5) g/dl Globulin 3.2 Albumin/Globulin Ratio 1.16 Urine Color Yellow (YELLOW) Urine Appearance Clear (CLEAR) Urine pH 6.5 (5.0-9.0) Ur Specific Ryan 1.025 (1.005-1.030) Urine Protein Negative (NEGATIVE) Urine Glucose (UA) Negative (NEGATIVE) Urine Ketones Negative (NEGATIVE) Urine Occult Blood Negative (NEGATIVE) Urine Nitrite Negative (NEGATIVE) Urine Bilirubin Negative (NEGATIVE) Urine Urobilinogen 0.2 (0.2-1.0) mg/dL Ur Leukocyte Esterase Negative (NEGATIVE) Urine RBC 0-5 /HPF Urine WBC 0-5 (0-5/HPF) /HPF Ur Epithelial Cells Occasional /HPF Urine Bacteria Occasional (0-FEW/HPF) /HPF Urine Opiates Screen (NEGATIVE) Ur Oxycodone Screen (NEGATIVE) Urine Methadone Screen (NEGATIVE) Ur Barbiturates Screen (NEGATIVE) U Tricyclic Antidepress (NEGATIVE) Ur Phencyclidine Scrn (NEGATIVE) Ur Amphetamine Screen (NEGATIVE) U Methamphetamines Scrn (NEGATIVE) Urine MDMA Screen (NEGATIVE) U Benzodiazepines Scrn (NEGATIVE) Urine Cocaine Screen (NEGATIVE) U Marijuana (THC) Screen (NEGATIVE) 02/27/18 Range/Units 00:57 WBC (5.0-10.0) 10^3/uL RBC (4.6-6.2) 10^6/uL Hgb (14.0-18.0) g/dL Hct (40.0-54.0) % MCV (80-100) fL MCH (27.0-34.0) pg MCHC (33.0-35.0) g/dL Plt Count (150-450) 10^3/uL Neut % (Auto) (42.2-75.2) % Lymph % (Auto) (20.5-50.1) % Owen % (Auto) (2-8) % Eos % (Auto) (1.0-3.0) % Baso % (Auto) (0.0-1.0) % Sodium (135-145) mmol/L Potassium (3.6-5.0) mmol/L Chloride (101-111) mmol/L Carbon Dioxide (21.0-31.0) mmol/L Anion Gap BUN (7-18) mg/dL Creatinine (0.6-1.3) mg/dL Est Cr Clr Drug Dosing mL/min Estimated GFR (MDRD) BUN/Creatinine Ratio Glucose (74-105) mg/dL Calcium (8.4-10.2) mg/dl Total Bilirubin (0.2-1.0) mg/dL AST (10-42) IU/L ALT (10-60) IU/L Alkaline Phosphatase (42-121) IU/L Total Protein (6.7-8.2) g/dl Albumin (3.2-5.5) g/dl Globulin Albumin/Globulin Ratio Urine Color (YELLOW) Urine Appearance (CLEAR) Urine pH (5.0-9.0) Ur Specific Ryan (1.005-1.030) Urine Protein (NEGATIVE) Urine Glucose (UA) (NEGATIVE) Urine Ketones (NEGATIVE) Urine Occult Blood (NEGATIVE) Urine Nitrite (NEGATIVE) Urine Bilirubin (NEGATIVE) Urine Urobilinogen (0.2-1.0) mg/dL Ur Leukocyte Esterase (NEGATIVE) Urine RBC /HPF Urine WBC (0-5/HPF) /HPF Ur Epithelial Cells /HPF Urine Bacteria (0-FEW/HPF) /HPF Urine Opiates Screen Negative (NEGATIVE) Ur Oxycodone Screen Negative (NEGATIVE) Urine Methadone Screen Negative (NEGATIVE) Ur Barbiturates Screen Positive H (NEGATIVE) U Tricyclic Antidepress Negative (NEGATIVE) Ur Phencyclidine Scrn Negative (NEGATIVE) Ur Amphetamine Screen Negative (NEGATIVE) U Methamphetamines Scrn Negative (NEGATIVE) Urine MDMA Screen Negative (NEGATIVE) U Benzodiazepines Scrn Negative (NEGATIVE) Urine Cocaine Screen Negative (NEGATIVE) U Marijuana (THC) Screen Negative (NEGATIVE) Meds: Medications Generic Name Dose Route Start Last Admin Trade Name Freq PRN Reason Stop Dose Admin Sodium Chloride 1,000 mls @ 999 mls/hr 02/27/18 00:45 02/27/18 01:06 Normal Saline IV 02/27/18 01:45 999 mls/hr .BOLUS ONE Administration - Re-Assessments/Exams Free Text/Narrative Re-Assessment/Exam: 02/27/18 01:34 The patient was advised of the lab results and reassessed. The patient reports his headache is much better at this time. Departure - Departure Time of Disposition: 01:35 Disposition: Home, Self-Care 01 Condition: Fair Clinical Impression: Nosebleed Headache Qualifiers: Headache type: unspecified Headache chronicity pattern: acute headache Intractability: not intractable Qualified Code(s): R51 - Headache - Discharge Information Instructions: Nosebleed, Adult, [id number], Tension Headache, [id number] Forms: ED Department Discharge Care Plan Goals: The patient was advised of the examination and lab results during the visit. The patient was given a liter of IV fluids while in the ED which relieved his headache. If the patient has any additional symptoms or concerns, the patient should follow-up with his primary care facility or return to the emergency department. - My Orders Last 24 Hours: My Active Orders 02/27/18 00:45 Sodium Chloride 0.9% [Normal Saline] 1,000 ml IV .BOLUS 02/27/18 00:46 DRUG SCREEN URINE BIORAD [URCHEM] Stat UA W/MICROSCOPIC [URIN] Stat - Assessment/Plan Last 24 Hours: My Active Orders 02/27/18 00:45 Sodium Chloride 0.9% [Normal Saline] 1,000 ml IV .BOLUS 02/27/18 00:46 DRUG SCREEN URINE BIORAD [URCHEM] Stat UA W/MICROSCOPIC [URIN] Stat
[2018-02-27 01:21] LABS: CHLORIDE,CL 105 mmol/L (101-111); SODIUM,NA 136 mmol/L (135-145)
[2018-02-27 02:16] VITALS: BP 143/81
== END 2018-02-27 02:14 | disposition home or self-care (01) ==
LOC: DL.ED 00:26
DX: R04.0 Epistaxis (principal); R51 Headache; I10 Essential (primary) hypertension; Z79.899 Other long term (current) drug therapy; Z88.0 Allergy status to penicillin; Z88.5 Allergy status to narcotic agent
CPT/HCPCS: 36415; 80053; 80305; 81001; 85025; 87804; 96360; 99284; J7030

== ENCOUNTER 2018-06-30 19:42 | Emergency (ER) | payer OTHER ==
[2018-06-30] MEDS ORDERED: Ketorolac 10 MG Tab PO ONE (19:43)
[2018-06-30] MEDS ORDERED: Cyclobenzaprine 10 MG Tab PO ONE (19:43)
[2018-06-30 20:17] VITALS: BP 129/66
[2018-06-30] MEDS ORDERED: Ketorolac 30 MG/ML SDV IM ONE (21:48)
--- NOTE | 2018-06-30 21:56 | EDM.PDOC ---
ED HPI GENERAL MEDICAL PROBLEM - General Chief Complaint: Back Pain or Injury Stated Complaint: BACK PAIN [id number] Time Seen by Provider: 06/30/18 21:45 Source of Information: Reports: Patient History Limitations: Reports: No Limitations - History of Present Illness INITIAL COMMENTS - FREE TEXT/NARRATIVE: This 38 yo male patient reports to the ED due to lower back pain due to a fall at work yesterday. The patient reports that he slipped on a drain last night and has experienced increased pain since that time. The patient has been taking Tylenol with little to no symptom relief. The patient reports no loss of bowel or bladder control. The patient has been able to ambulate, but has pain with movement. 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 Lower Back Pain Score (Numeric/FACES): 8 - Related Data Allergies Allergy/AdvReac Type Severity Reaction Status Date / Time Penicillins Allergy Tachycardia Verified 02/27/18 00:44 tramadol Allergy Other Verified 02/27/18 00:44 Home Meds: Home Meds Phenytoin Sodium Extended [Dilantin] 200 mg PO ACBREAKFAST 12/30/14 [History] Acetaminophen [Tylenol Extra Strength] 1,000 mg PO Q12H 11/03/15 [History] Acetaminophen [Tylenol] 650 mg PO Q6H PRN 02/11/17 [History] Phenytoin Sodium Extended 300 mg PO BEDTIME 02/11/17 [History] Triamcinolone Acetonide [Triamcinolone Acetonide 0.1% Oint] 1 applic TOP ASDIRECTED 10/15/17 [History] Past Medical History - Past Health History Medical/Surgical History: Denies Medical/Surgical History HEENT History: Reports: Impaired Vision Cardiovascular History: Reports: Hypertension Other Cardiovascular History: Stop taking medication 2 years ago- hypertension had resolved Respiratory History: Reports: None Gastrointestinal History: Reports: None Genitourinary History: Reports: None Musculoskeletal History: Reports: Arthritis, Back Pain, Chronic Neurological History: Reports: Seizure Other Neuro History: last seizure in when he had hemorrhoid surg Psychiatric History: Reports: None Endocrine/Metabolic History: Reports: None Hematologic History: Reports: None Immunologic History: Reports: None Oncologic (Cancer) History: Reports: None Dermatologic History: Reports: Eczema - Infectious Disease History Infectious Disease History: Reports: None - Past Surgical History Head Surgeries/Procedures: Reports: None HEENT Surgical History: Reports: Other (See Below) Other HEENT Surgeries/Procedures: teeth were surgically removed Cardiovascular Surgical History: Reports: None GI Surgical History: Reports: None Social & Family History - Family History Family Medical History: Noncontributory - Tobacco Use Smoking Status *Q: Current Every Day Smoker Years of Tobacco use: 5 Packs/Tins Daily: 0.2 - Caffeine Use Caffeine Use: Reports: Coffee, Energy Drinks, Soda Caffeine Use Comment: 5 cans - Recreational Drug Use Recreational Drug Use: No - Living Situation & Occupation Living situation: Reports: with Family Occupation: Employed ED ROS GENERAL - Review of Systems Review Of Systems: ROS reveals no pertinent complaints other than HPI. ED EXAM,LOWER BACK PAIN/INJURY - Physical Exam Exam: See Below Exam Limited By: No Limitations General Appearance: Alert, WD/WN, Moderate Distress Eye Exam: Bilateral Eye: EOMI, Normal Inspection, PERRL Ears: Normal External Exam, Normal Canal, Hearing Grossly Normal, Normal TMs Nose: Normal Inspection, Normal Mucosa, No Blood Throat/Mouth: Normal Inspection, Normal Lips, Normal Teeth, Normal Gums, Normal Oropharynx, Normal Voice, No Airway Compromise Head: Atraumatic, Normocephalic Neck: Normal Inspection, Supple, Non-Tender, Full Range of Motion Respiratory/Chest: No Respiratory Distress, Lungs Clear, Normal Breath Sounds, No Accessory Muscle Use, Chest Non-Tender Cardiovascular: Normal Peripheral Pulses, Regular Rate, Rhythm, No Edema, No Gallop, No JVD, No Murmur, No Rub GI/Abdominal: Normal Bowel Sounds, Soft, Non-Tender, No Organomegaly, No Distention, No Abnormal Bruit, No Mass, Other (obese) (Male) Exam: Deferred Rectal (Males) Exam: Deferred Back Exam: Paraspinal Tenderness Extremities: Normal Inspection, Normal Range of Motion, Non-Tender, No Pedal Edema, Normal Capillary Refill Neurological: Alert, Normal Mood/Affect, Normal Dorsiflexion, CN II-XII Intact Psychiatric: Normal Affect, Normal Mood Skin Exam: Warm, Dry, Intact, Normal Color, No Rash Lymphatic: No Adenopathy Course - Vital Signs Last Recorded V/S: Last Vital Signs Temp 36.6 C 06/30/18 20:16 Pulse 65 06/30/18 20:16 Resp 20 06/30/18 20:16 BP 129/66 06/30/18 20:16 Pulse Ox 100 06/30/18 20:16 - Orders/Labs/Meds Meds: Medications Discontinued Medications Generic Name Dose Route Start Last Admin Trade Name Skyler PRN Reason Stop Dose Admin Ketorolac Tromethamine 60 mg 06/30/18 21:48 Toradol IM 06/30/18 21:49 ONETIME ONE Departure - Departure Time of Disposition: 21:54 Disposition: Home, Self-Care 01 Condition: Fair Clinical Impression: Low back strain Qualifiers: Encounter type: initial encounter Qualified Code(s): S39.012A - Strain of muscle, fascia and tendon of lower back, initial encounter - Discharge Information *PRESCRIPTION DRUG MONITORING PROGRAM REVIEWED*: Not Applicable *COPY OF PRESCRIPTION DRUG MONITORING REPORT IN PATIENT MARCY: Not Applicable Instructions: Low Back Strain, Back Injury Prevention, [id number] Care Plan Goals: The patient was advised of the examination results during the visit. The patient was given an injection of Toradol (60 mg) while in the ED. The patient was discharged with Toradol (10 mg) #6 (six) to take 1 by mouth every 6 hours and Flexeril (10 mg) #4 to take 1 by mouth at bedtime as needed. The patient was also given a script for Toradol (10 mg) #14 to take 1 by mouth every 6 hours and Flexeril (10 mg) #8 to take 1 by mouth at bedtime as needed. If the patient has any additional symptoms or concerns, the patient should follow-up with his primary care facility or return to the emergency department.
[2018-06-30] MEDS ORDERED: Cyclobenzaprine 10 MG Tab ONE (22:14)
[2018-06-30] MEDS ORDERED: Ketorolac 10 MG Tab ONE (22:14)
== END 2018-06-30 23:24 | disposition home or self-care (01) ==
LOC: DL.ED 19:42
DX: S39.012A Strain of muscle, fascia and tendon of lower back, initial encounter (principal); F17.210 Nicotine dependence, cigarettes, uncomplicated; Z88.0 Allergy status to penicillin; Z88.5 Allergy status to narcotic agent; W01.0XXA Fall on same level from slipping, tripping and stumbling without subsequent striking against object, initial encounter; Y99.0 Civilian activity done for income or pay
CPT/HCPCS: 96372; 99283; J1885; A9270-GY

== ENCOUNTER 2019-01-28 02:32 | Emergency (ER) | payer OTHER ==
[~2019-01-28 02:32] MED LIST: LORazepam 2 MG/ML Syringe IVPUSH ONE; LORazepam 2 MG/ML Syringe ONE; Phenytoin 1,500 MG in Sodium Chloride 0.9% 100 ML IV ONE
[2019-01-28] MEDS ORDERED: LORazepam 2 MG/ML Syringe IVPUSH ONE (02:37)
[2019-01-28 02:57] LABS: ANION GAP 13.5; CHLORIDE,CL 106 mmol/L (101-111); SODIUM,NA 139 mmol/L (135-145)
[2019-01-28 03:31] VITALS: BP 159/105
[2019-01-28] MEDS ORDERED: diphenhydrAMINE 50 MG/ML SDV IVPUSH ONE (04:26)
--- NOTE | 2019-01-28 04:51 | EDM.PDOC ---
ED HPI GENERAL MEDICAL PROBLEM - General Chief Complaint: Neurological Problem Stated Complaint: AMBULANCE-UNKNOWN Time Seen by Provider: 01/28/19 02:32 Source of Information: Reports: Patient, EMS, Family History Limitations: Reports: Altered Mental Status - History of Present Illness INITIAL COMMENTS - FREE TEXT/NARRATIVE: ED via [facility] with seizure. EMS report 5mg valium given on site with no change repeated. Noted 45minutes seizure activity. Stopped generalized seizure activity enroute. On arrival to ED EMS stated patient had been alert and talking. Tx to ED cart with movement. Patient stiffened and began generalized seizure. Ativan 2mg given and activity resolved. 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 Stated he had taken his medication today but did not eat. Known seizure disorder states last seizure one year ago. Medication bottle ffor Dilantin 100mg from October 2018 with pills remaining. Prior fill per pharmacy lookup was in August 2018. Family noted always fill from same pharmacy. Patient denied alcohol or drug use. Family reported 1-2 energy drinks per day while at work. 2nd seizure resolved with additional ativan 2 mg. Dilantin IV initiated. Posterior Headache Pain Score (Numeric/FACES): 10 - Related Data Allergies Allergy/AdvReac Type Severity Reaction Status Date / Time Penicillins Allergy Tachycardia Verified 02/27/18 00:44 tramadol Allergy Other Verified 02/27/18 00:44 Home Meds: Home Meds Phenytoin Sodium Extended [Dilantin] 200 mg PO ACBREAKFAST 12/30/14 [History] Acetaminophen [Tylenol Extra Strength] 1,000 mg PO Q12H 11/03/15 [History] Acetaminophen [Tylenol] 650 mg PO Q6H PRN 02/11/17 [History] Phenytoin Sodium Extended 300 mg PO BEDTIME 02/11/17 [History] Triamcinolone Acetonide [Triamcinolone Acetonide 0.1% Oint] 1 applic TOP ASDIRECTED 10/15/17 [History] Past Medical History - Past Health History Medical/Surgical History: Denies Medical/Surgical History HEENT History: Reports: Impaired Vision Cardiovascular History: Reports: Hypertension Other Cardiovascular History: Stop taking medication 2 years ago- hypertension had resolved Respiratory History: Reports: None Gastrointestinal History: Reports: None Genitourinary History: Reports: None Musculoskeletal History: Reports: Arthritis, Back Pain, Chronic Neurological History: Reports: Seizure Other Neuro History: last seizure in when he had hemorrhoid surg Psychiatric History: Reports: None Endocrine/Metabolic History: Reports: None Hematologic History: Reports: None Immunologic History: Reports: None Oncologic (Cancer) History: Reports: None Dermatologic History: Reports: Eczema - Infectious Disease History Infectious Disease History: Reports: None - Past Surgical History Head Surgeries/Procedures: Reports: None HEENT Surgical History: Reports: Other (See Below) Other HEENT Surgeries/Procedures: teeth were surgically removed Cardiovascular Surgical History: Reports: None GI Surgical History: Reports: None Social & Family History - Family History Family Medical History: Noncontributory - Tobacco Use Smoking Status *Q: Current Every Day Smoker Years of Tobacco use: 20 Packs/Tins Daily: 0.2 Second Hand Smoke Exposure: Yes - Caffeine Use Caffeine Use: Reports: Energy Drinks, Soda Caffeine Use Comment: 5 cans - Recreational Drug Use Recreational Drug Use: No - Living Situation & Occupation Living situation: Reports: with Family Occupation: Employed ED ROS GENERAL - Review of Systems Review Of Systems: ROS reveals no pertinent complaints other than HPI. - Physical Exam Exam: See Below Exam Limited By: No Limitations General Appearance: Mild Distress, Obese Eye Exam: Bilateral Eye: EOMI, PERRL (sluggish) Ears: Normal External Exam Nose: Normal Inspection Throat/Mouth: Normal Inspection. No: Normal Teeth (absent upper) Head Exam: Atraumatic, Normocephalic, Scalp Tenderness (occipital). No: Scalp Abrasions, Scalp Ecchymosis, Scalp Hematoma Respiratory/Chest: No Respiratory Distress, Lungs Clear, Normal Breath Sounds Cardiovascular: Normal Peripheral Pulses, Regular Rate, Rhythm GI/Abdominal: Normal Bowel Sounds, Soft Neuro Exam (Abbreviated): Alert, Oriented, Normal Cognition, No Motor/Sensory Deficits, Slow to Respond Extremities: Normal Inspection, Normal Range of Motion Psychiatric: Normal Affect, Normal Mood Skin Exam: Warm, Dry, Intact, Normal Color, No Rash Course - Vital Signs Last Recorded V/S: Last Vital Signs Temp 98.4 F 01/28/19 02:25 Pulse 94 01/28/19 02:25 Resp 28 H 01/28/19 02:25 BP 159/105 H 01/28/19 02:25 Pulse Ox 97 01/28/19 02:25 - Orders/Labs/Meds Orders: Active Orders 24 hr Category Date Time Status EKG Documentation Completion [RC] URGENT Care 01/28/19 02:46 Active Labs: Laboratory Tests 01/28/19 01/28/19 01/28/19 Range/Units 02:31 02:31 03:15 WBC 9.4 (5.0-10.0) 10^3/uL RBC 5.20 (4.6-6.2) 10^6/uL Hgb 15.2 (14.0-18.0) g/dL Hct 45.3 (40.0-54.0) % MCV 87.1 (80-100) fL MCH 29.2 (27.0-34.0) pg MCHC 33.6 (33.0-35.0) g/dL Plt Count 251 (150-450) 10^3/uL Neut % (Auto) 66.6 (42.2-75.2) % Lymph % (Auto) 22.5 (20.5-50.1) % [place] % (Auto) 7.6 (2-8) % Eos % (Auto) 3.1 H (1.0-3.0) % Baso % (Auto) 0.2 (0.0-1.0) % Sodium 139 (135-145) mmol/L Potassium 3.5 L (3.6-5.0) mmol/L Chloride 106 (101-111) mmol/L Carbon Dioxide 23.0 (21.0-31.0) mmol/L Anion Gap 13.5 BUN 8 (7-18) mg/dL Creatinine 0.8 (0.6-1.3) mg/dL Est Cr Clr Drug Dosing 133.34 mL/min Estimated GFR (MDRD) > 60 BUN/Creatinine Ratio 10.00 Glucose 93 (74-105) mg/dL Calcium 8.4 (8.4-10.2) mg/dl Total Bilirubin 0.6 (0.2-1.0) mg/dL AST 27 (10-42) IU/L ALT 22 (10-60) IU/L Alkaline Phosphatase 88 (42-121) IU/L Total Protein 7.2 (6.7-8.2) g/dl Albumin 3.9 (3.2-5.5) g/dl Globulin 3.3 Albumin/Globulin Ratio 1.18 Urine Opiates Screen Negative (NEGATIVE) Ur Oxycodone Screen Negative (NEGATIVE) Urine Methadone Screen Negative (NEGATIVE) Ur Barbiturates Screen Negative (NEGATIVE) Phenytoin < 2.5 L (10-20) ug/mL U Tricyclic Antidepress Negative (NEGATIVE) Ur Phencyclidine Scrn Negative (NEGATIVE) Ur Amphetamine Screen Negative (NEGATIVE) U Methamphetamines Scrn Negative (NEGATIVE) Urine MDMA Screen Negative (NEGATIVE) U Benzodiazepines Scrn Negative (NEGATIVE) Urine Cocaine Screen Negative (NEGATIVE) U Marijuana (THC) Screen Negative (NEGATIVE) Ethyl Alcohol < 5 mg/dL Meds: Medications Discontinued Medications Generic Name Dose Route Start Last Admin Trade Name Freq PRN Reason Stop Dose Admin Diphenhydramine HCl 25 mg 01/28/19 04:26 01/28/19 04:29 Benadryl IVPUSH 01/28/19 04:27 25 mg ONETIME ONE Administration Phenytoin Sodium 1,500 mg/ 130 mls @ 260 mls/hr 01/28/19 02:23 01/28/19 02:45 Sodium Chloride IV 01/28/19 02:24 260 mls/hr ONETIME ONE Administration Lorazepam Confirm 01/28/19 02:29 01/28/19 02:33 Ativan Administered 01/28/19 02:30 Not Given Dose 2 mg .ROUTE .STK-MED ONE Lorazepam 2 mg 01/28/19 02:30 01/28/19 02:33 Ativan IVPUSH 01/28/19 02:31 2 mg ONETIME ONE Administration Lorazepam 2 mg 01/28/19 02:37 01/28/19 02:38 Ativan IVPUSH 01/28/19 02:38 2 mg ONETIME ONE Administration - Radiology Interpretation Free Text/Narrative:: Name: OCTAVIANO MENESES Age: 38Years M Date: 01/28/2019 SSN: -- : [id number] Study: CT HEAD WO Requesting Physician: SHAHBAZ WILLIAMSON Images: 161 Addl Studies: Provided Clinical History: Contrast: Without Contrast Medium: Contrast Amount: Contrast Method: Page 1 of 2 EXAM: CT Head Without Contrast EXAM DATE/TIME: 01/28/2019 3:01 AM CLINICAL HISTORY: 38 years old, male; Condition or disease; Other: Seizures, posterior headache TECHNIQUE: Imaging protocol: Axial computed tomography images of the head/brain without contrast. Coronal and sagittal reformatted images were created and reviewed. Radiation optimization: All CT scans at this facility use at least one of these dose optimization techniques: automated exposure control; mA and/or kV adjustment per patient size (includes targeted exams where dose is matched to clinical indication); or iterative reconstruction. COMPARISON: CT Head wo Cont 03/20/2014 9:29 PM FINDINGS: Brain: No evidence for acute transcortical infarct. No mass effect or midline shift. No extra-axial collection. No acute intracranial hemorrhage. Basal cisterns are patent. Ventricles: Normal. No ventriculomegaly. Bones/joints: Unremarkable. No acute fracture. Sinuses: Mucosal thickening involving the right maxillary sinus. Mastoid air cells: Visualized mastoid air cells are unremarkable. No mastoid effusion. Soft tissues: Unremarkable. IMPRESSION: No acute intracranial hemorrhage or mass effect. - Re-Assessments/Exams Free Text/Narrative Re-Assessment/Exam: Generalized seizure activity on presentation. Incontinent urine. Cessation of seizure activity with ativan. Minimal postictal period following. Able to converse answer questions appropriately. Minimal drowsiness with ativan and valium No respiratory depression noted with maintaining saturation greater than 95 %. 01/28/19 05:30 Attempt to sit up dangle at bed side, unsteady. Return to bed. 01/28/19 06:35 Improved, more alert. Departure - Departure Time of Disposition: 06:35 Disposition: Home, Self-Care 01 Condition: Good Clinical Impression: Seizure, Non compliance w medication regimen - Discharge Information *PRESCRIPTION DRUG MONITORING PROGRAM REVIEWED*: Not Applicable *COPY OF PRESCRIPTION DRUG MONITORING REPORT IN PATIENT AMRCY: Not Applicable Instructions: Epilepsy, [id number] Forms: ED Department Discharge Additional Instructions: Take dilantin as prescribed - do not miss doses no driving for one year avoid energy drinks follow up in clinic later this week to recheck Dilantin level - My Orders Last 24 Hours: My Active Orders 01/28/19 02:46 EKG Documentation Completion [RC] URGENT - Assessment/Plan Last 24 Hours: My Active Orders 01/28/19 02:46 EKG Documentation Completion [RC] URGENT
== END 2019-01-28 06:35 | disposition home or self-care (01) ==
LOC: DL.ED 02:32
DX: R56.9 Unspecified convulsions (principal); Z91.14 Patient's other noncompliance with medication regimen; F17.210 Nicotine dependence, cigarettes, uncomplicated; I10 Essential (primary) hypertension; Z79.899 Other long term (current) drug therapy; Z88.0 Allergy status to penicillin; Z88.5 Allergy status to narcotic agent
CPT/HCPCS: 36415; 70450; 80053; 80185; 80305; 82962; 85025; 93005; 96365; 96375; 99285; G0480; J1165; J1200; J2060; J7050

== ENCOUNTER 2019-03-16 23:56 | Emergency (ER) | payer OTHER ==
[2019-03-17 00:14] VITALS: BP 151/132
[2019-03-17] MEDS ORDERED: Ketorolac 30 MG/ML SDV IM ONE (00:21)
[2019-03-17] MEDS ORDERED: Promethazine 25 MG/ML SDV IM ONE (00:21)
--- NOTE | 2019-03-17 00:28 | EDM.PDOC ---
ED HPI GENERAL MEDICAL PROBLEM - General Chief Complaint: Back Pain or Injury Stated Complaint: LOWER BACK PAIN [id number] Time Seen by Provider: 03/17/19 00:22 Source of Information: Reports: Patient History Limitations: Reports: No Limitations - History of Present Illness INITIAL COMMENTS - FREE TEXT/NARRATIVE: long h/o LBP, has been lifting lot of heavy dishes and aggravated it tonight. 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 Lower Back Pain Score (Numeric/FACES): 8 - Related Data Allergies Allergy/AdvReac Type Severity Reaction Status Date / Time Penicillins Allergy Tachycardia Verified 03/17/19 00:10 tramadol Allergy Other Verified 03/17/19 00:10 Home Meds: Home Meds Phenytoin Sodium Extended [Dilantin] 200 mg PO ACBREAKFAST 12/30/14 [History] Acetaminophen [Tylenol Extra Strength] 1,000 mg PO Q12H 11/03/15 [History] Phenytoin Sodium Extended 300 mg PO BEDTIME 02/11/17 [History] Triamcinolone Acetonide [Triamcinolone Acetonide 0.1% Oint] 1 applic TOP ASDIRECTED 10/15/17 [History] Past Medical History - Past Health History Medical/Surgical History: Denies Medical/Surgical History HEENT History: Reports: Impaired Vision Cardiovascular History: Reports: Hypertension Other Cardiovascular History: Stop taking medication 2 years ago- hypertension had resolved Respiratory History: Reports: None Gastrointestinal History: Reports: None Genitourinary History: Reports: None Musculoskeletal History: Reports: Arthritis, Back Pain, Chronic Neurological History: Reports: Seizure Other Neuro History: last seizure in when he had hemorrhoid surg Psychiatric History: Reports: None Endocrine/Metabolic History: Reports: None Hematologic History: Reports: None Immunologic History: Reports: None Oncologic (Cancer) History: Reports: None Dermatologic History: Reports: Eczema - Infectious Disease History Infectious Disease History: Reports: None - Past Surgical History Head Surgeries/Procedures: Reports: None HEENT Surgical History: Reports: Other (See Below) Other HEENT Surgeries/Procedures: teeth were surgically removed Cardiovascular Surgical History: Reports: None GI Surgical History: Reports: None Social & Family History - Family History Family Medical History: Noncontributory - Tobacco Use Smoking Status *Q: Unknown Ever Smoked Second Hand Smoke Exposure: Yes - Caffeine Use Caffeine Use: Reports: Energy Drinks, Soda Caffeine Use Comment: 5 cans - Recreational Drug Use Recreational Drug Use: No - Living Situation & Occupation Living situation: Reports: with Family Occupation: Employed ED ROS GENERAL - Review of Systems Review Of Systems: ROS reveals no pertinent complaints other than HPI. ED EXAM,LOWER BACK PAIN/INJURY - Physical Exam Exam: See Below Exam Limited By: No Limitations General Appearance: Alert, WD/WN, Mild Distress, Moderate Distress, Other (pain) Ears: Hearing Grossly Normal Throat/Mouth: Normal Voice, No Airway Compromise Head: Atraumatic Neck: Non-Tender, Full Range of Motion Respiratory/Chest: No Respiratory Distress Cardiovascular: Regular Rate, Rhythm GI/Abdominal: Soft, Non-Tender Back Exam: Muscle Spasm, Paraspinal Tenderness, Other (L3-4-5-S1 without mild radiculitis, gait limited to pain) Neurological: Alert, No Motor/Sensory Deficits, Oriented x 3 Psychiatric: Tearful Skin Exam: Warm, Dry, Normal Color Lymphatic: No Adenopathy Course - Vital Signs Last Recorded V/S: Last Vital Signs Temp 37.2 C 03/17/19 00:12 Pulse 69 03/17/19 00:12 Resp 20 03/17/19 00:12 BP 151/132 H 03/17/19 00:12 Pulse Ox 98 03/17/19 00:12 - Orders/Labs/Meds Meds: Medications Discontinued Medications Generic Name Dose Route Start Last Admin Trade Name Skyler PRN Reason Stop Dose Admin Ketorolac Tromethamine 30 mg 03/17/19 00:21 03/17/19 00:40 Toradol IM 03/17/19 00:22 30 mg ONETIME ONE Administration Orphenadrine Citrate 60 mg 03/17/19 00:21 03/17/19 00:37 Norflex IM 03/17/19 00:22 60 mg ONETIME ONE Administration Promethazine HCl 25 mg 03/17/19 00:21 03/17/19 00:38 Phenergan IM 03/17/19 00:22 25 mg ONETIME ONE Administration Departure - Departure Time of Disposition: 00:45 Disposition: Home, Self-Care 01 Condition: Fair Clinical Impression: Degeneration of lumbosacral intervertebral disc, Lumbar radicular pain - Discharge Information Instructions: Chronic Back Pain, [id number] Referrals: PCP,None [Ordering Only Provider] - Forms: ED Department Discharge Additional Instructions: 1) avoid bending lifting straining next 48 hours 2) try ice or heat to sore areas 3) follow up at clinic rx given; flexeril 10mg tid prn spasm x 12 vicodin 5/325mg bid prn pain x 6
== END 2019-03-17 00:47 | disposition home or self-care (01) ==
LOC: DL.ED 23:56
DX: M51.16 Intervertebral disc disorders with radiculopathy, lumbar region (principal); I10 Essential (primary) hypertension; Z88.0 Allergy status to penicillin; Z88.6 Allergy status to analgesic agent; Z79.899 Other long term (current) drug therapy; Z77.22 Contact with and (suspected) exposure to environmental tobacco smoke (acute) (chronic)
CPT/HCPCS: 99282; J1885; J2360; J2550

== ENCOUNTER 2019-04-17 21:19 | Emergency (ER) | payer OTHER ==
[2019-04-17 21:27] VITALS: BP 153/96
--- NOTE | 2019-04-17 21:39 | EDM.PDOC ---
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 today it hurt so bad that he passed out. EMS found pt on floor and were told people saw him grab his chest and fell down. pt denies head/neck pain since he fell onto his left side and his pain is better now. denies h/o seizures. Left Chest Pain Score (Numeric/FACES): 9 - Related Data Allergies Allergy/AdvReac Type Severity Reaction Status Date / Time Penicillins Allergy Tachycardia Verified 04/17/19 21:31 tramadol Allergy Other Verified 04/17/19 21:31 Home Meds: Home Meds Phenytoin Sodium Extended [Dilantin] 200 mg PO ACBREAKFAST 12/30/14 [History] Acetaminophen [Tylenol Extra Strength] 1,000 mg PO Q12H 11/03/15 [History] Phenytoin Sodium Extended 300 mg PO BEDTIME 02/11/17 [History] Triamcinolone Acetonide [Triamcinolone Acetonide 0.1% Oint] 1 applic TOP ASDIRECTED 10/15/17 [History] Past Medical History - Past Health History Medical/Surgical History: Denies Medical/Surgical History HEENT History: Reports: Impaired Vision Cardiovascular History: Reports: Hypertension Other Cardiovascular History: Stop taking medication 2 years ago- hypertension had resolved Respiratory History: Reports: None Gastrointestinal History: Reports: None Genitourinary History: Reports: None Musculoskeletal History: Reports: Arthritis, Back Pain, Chronic Neurological History: Reports: Seizure Other Neuro History: last seizure in when he had hemorrhoid surg Psychiatric History: Reports: None Endocrine/Metabolic History: Reports: None Hematologic History: Reports: None Immunologic History: Reports: None Oncologic (Cancer) History: Reports: None Dermatologic History: Reports: Eczema - Infectious Disease History Infectious Disease History: Reports: None - Past Surgical History Head Surgeries/Procedures: Reports: None HEENT Surgical History: Reports: Other (See Below) Other HEENT Surgeries/Procedures: teeth were surgically removed Cardiovascular Surgical History: Reports: None GI Surgical History: Reports: None Social & Family History - Family History Family Medical History: Noncontributory - Tobacco Use Smoking Status *Q: Current Every Day Smoker Years of Tobacco use: 5 Packs/Tins Daily: 2 - Caffeine Use Caffeine Use: Reports: Coffee, Energy Drinks, Soda Caffeine Use Comment: 5 cans - Recreational Drug Use Recreational Drug Use: No - Living Situation & Occupation Living situation: Reports: with Family Occupation: Employed ED ROS GENERAL - Review of Systems Review Of Systems: ROS reveals no pertinent complaints other than HPI. ED EXAM, GENERAL - Physical Exam Exam: See Below Exam Limited By: No Limitations General Appearance: Alert, WD/WN, Mild Distress, Other (distraught) Eye Exam: Bilateral Eye: PERRL (pupils ER @ 4mm) Ears: Hearing Grossly Normal Throat/Mouth: Normal Voice, No Airway Compromise Head: Atraumatic Neck: Non-Tender, Full Range of Motion Respiratory/Chest: No Respiratory Distress, No Accessory Muscle Use, Chest Non- Tender, Rhonchi. No: Decreased Breath Sounds Cardiovascular: Regular Rate, Rhythm GI/Abdominal: Soft, Non-Tender Neurological: Alert, Oriented, Normal Cognition, No Motor/Sensory Deficits Psychiatric: Flat Affect Skin Exam: Warm, Dry, Normal Color Lymphatic: No Adenopathy Course - Vital Signs Last Recorded V/S: Last Vital Signs Temp 37.2 C 04/17/19 21:23 Pulse 67 04/17/19 21:23 Resp 11 L 04/17/19 21:23 BP 153/96 H 04/17/19 21:23 Pulse Ox 100 04/17/19 21:23 - Orders/Labs/Meds Orders: Active Orders 24 hr Category Date Time Status EKG 12 Lead [EKG Documentation Completion] [RC] STAT Care 04/17/19 21:24 Active Labs: Laboratory Tests 04/17/19 04/17/19 04/17/19 Range/Units 21:40 21:40 21:40 WBC 7.3 (5.0-10.0) 10^3/uL RBC 5.33 (4.6-6.2) 10^6/uL Hgb 16.0 (14.0-18.0) g/dL Hct 46.8 (40.0-54.0) % MCV 87.8 (80-100) fL MCH 30.0 (27.0-34.0) pg MCHC 34.2 (33.0-35.0) g/dL Plt Count 232 (150-450) 10^3/uL Neut % (Auto) 62.0 (42.2-75.2) % Lymph % (Auto) 22.8 (20.5-50.1) % Meagher % (Auto) 9.4 H (2-8) % Eos % (Auto) 5.5 H (1.0-3.0) % Baso % (Auto) 0.3 (0.0-1.0) % D-Dimer, Quantitative < 100 (0-400) ng/mL Sodium 138 (135-145) mmol/L Potassium 3.1 L (3.6-5.0) mmol/L Chloride 107 (101-111) mmol/L Carbon Dioxide 22.0 (21.0-31.0) mmol/L Anion Gap 12.1 BUN 10 (7-18) mg/dL Creatinine 0.8 (0.6-1.3) mg/dL Est Cr Clr Drug Dosing TNP Estimated GFR (MDRD) > 60 BUN/Creatinine Ratio 12.50 Glucose 103 (74-105) mg/dL Calcium 8.4 (8.4-10.2) mg/dl Total Bilirubin 0.5 (0.2-1.0) mg/dL AST 21 (10-42) IU/L ALT 27 (10-60) IU/L Alkaline Phosphatase 116 (42-121) IU/L Troponin I < 0.02 (0.00-0.02) ng/ml Total Protein 7.1 (6.7-8.2) g/dl Albumin 3.9 (3.2-5.5) g/dl Globulin 3.2 Albumin/Globulin Ratio 1.22 - Re-Assessments/Exams Free Text/Narrative Re-Assessment/Exam: 04/17/19 23:11 results discussed with pt Departure - Departure Time of Disposition: 23:11 Disposition: Home, Self-Care 01 Condition: Good Clinical Impression: Atypical chest pain Instructions: Nonspecific Chest Pain, [id number] Forms: ED Department Discharge Additional Instructions: 1 see clinic tomorrow for STRESS TEST, ECHOCARDIOGRAM,HOLTER MONITR 2) rest avoid vigorous activities next 48 hours - My Orders Last 24 Hours: My Active Orders 04/17/19 21:24 EKG 12 Lead [EKG Documentation Completion] [RC] STAT - Assessment/Plan Last 24 Hours: My Active Orders 04/17/19 21:24 EKG 12 Lead [EKG Documentation Completion] [RC] STAT
[2019-04-17 22:07] LABS: ANION GAP 12.1; CHLORIDE,CL 107 mmol/L (101-111); SODIUM,NA 138 mmol/L (135-145)
== END 2019-04-17 23:20 | disposition home or self-care (01) ==
LOC: DL.ED 21:19
DX: R07.89 Other chest pain (principal); I10 Essential (primary) hypertension; F17.210 Nicotine dependence, cigarettes, uncomplicated; Z88.0 Allergy status to penicillin; Z88.5 Allergy status to narcotic agent; Z79.899 Other long term (current) drug therapy
CPT/HCPCS: 36415; 70450; 71045; 80053; 84484; 85025; 85379; 93005; 99285-25

== ENCOUNTER 2019-06-27 21:39 | Emergency (ER) | payer OTHER ==
[2019-06-27 23:55] VITALS: BP 141/69
--- NOTE | 2019-06-28 02:35 | EDM.PDOC ---
ED HPI GENERAL MEDICAL PROBLEM - General Chief Complaint: Lower Extremity Injury/Pain Stated Complaint: KNEE PAIN Time Seen by Provider: 06/28/19 02:15 Source of Information: Reports: Patient History Limitations: Reports: No Limitations - History of Present Illness INITIAL COMMENTS - FREE TEXT/NARRATIVE: This 39 yo male patient reports to the ED due to a ground level fall. The patient reports he tripped over a crack in the concrete and landed in his left knee. The patient reports increased pain in the area since the fall. The patient reports increased pain with ambulation. 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 Left Knee Pain Score (Numeric/FACES): 8 - Related Data Allergies Allergy/AdvReac Type Severity Reaction Status Date / Time Penicillins Allergy Tachycardia Verified 06/27/19 23:56 tramadol Allergy Other Verified 06/27/19 23:56 Home Meds: Home Meds Phenytoin Sodium Extended [Dilantin] 200 mg PO ACBREAKFAST 12/30/14 [History] Acetaminophen [Tylenol Extra Strength] 1,000 mg PO Q12H 11/03/15 [History] Phenytoin Sodium Extended 300 mg PO BEDTIME 02/11/17 [History] Triamcinolone Acetonide [Triamcinolone Acetonide 0.1% Oint] 1 applic TOP ASDIRECTED 10/15/17 [History] Past Medical History - Past Health History Medical/Surgical History: Denies Medical/Surgical History HEENT History: Reports: Impaired Vision Cardiovascular History: Reports: Hypertension Other Cardiovascular History: Stop taking medication 2 years ago- hypertension had resolved Respiratory History: Reports: None Gastrointestinal History: Reports: None Genitourinary History: Reports: None Musculoskeletal History: Reports: Arthritis, Back Pain, Chronic Neurological History: Reports: Seizure Other Neuro History: last seizure in when he had hemorrhoid surg Psychiatric History: Reports: None Endocrine/Metabolic History: Reports: None Hematologic History: Reports: None Immunologic History: Reports: None Oncologic (Cancer) History: Reports: None Dermatologic History: Reports: Eczema - Infectious Disease History Infectious Disease History: Reports: None - Past Surgical History Head Surgeries/Procedures: Reports: None HEENT Surgical History: Reports: Other (See Below) Other HEENT Surgeries/Procedures: teeth were surgically removed Cardiovascular Surgical History: Reports: None GI Surgical History: Reports: None Social & Family History - Family History Family Medical History: Noncontributory - Tobacco Use Smoking Status *Q: Current Every Day Smoker Years of Tobacco use: 20 Packs/Tins Daily: 0.3 Second Hand Smoke Exposure: Yes - Caffeine Use Caffeine Use: Reports: Soda Caffeine Use Comment: 5 cans - Recreational Drug Use Recreational Drug Use: No - Living Situation & Occupation Living situation: Reports: with Family Occupation: Employed Review of Systems - Review of Systems Review Of Systems: ROS reveals no pertinent complaints other than HPI. ED EXAM, GENERAL - Physical Exam Exam: See Below Exam Limited By: No Limitations General Appearance: Alert, WD/WN, Moderate Distress Eye Exam: Bilateral Eye: EOMI, Normal Inspection, PERRL Ears: Normal External Exam, Normal Canal, Hearing Grossly Normal, Normal TMs Nose: Normal Inspection, Normal Mucosa, No Blood Throat/Mouth: Normal Inspection, Normal Lips, Normal Teeth, Normal Gums, Normal Oropharynx, Normal Voice, No Airway Compromise Head: Atraumatic, Normocephalic Neck: Normal Inspection, Supple, Non-Tender, Full Range of Motion Respiratory/Chest: No Respiratory Distress, Lungs Clear, Normal Breath Sounds, No Accessory Muscle Use, Chest Non-Tender Cardiovascular: Normal Peripheral Pulses, Regular Rate, Rhythm, No Edema, No Gallop, No JVD, No Murmur, No Rub GI/Abdominal: Normal Bowel Sounds, Soft, Non-Tender, No Organomegaly, No Distention, No Abnormal Bruit, No Mass (Male) Exam: Deferred Rectal (Males) Exam: Deferred Back Exam: Normal Inspection, Full Range of Motion, NT Extremities: Leg Pain (left knee pain with mild swelling) Neurological: Alert, Oriented, CN II-XII Intact, Normal Cognition, Normal Gait, Normal Reflexes, No Motor/Sensory Deficits Psychiatric: Normal Affect, Normal Mood Skin Exam: Warm, Dry, Intact, Normal Color, No Rash Lymphatic: No Adenopathy Course - Vital Signs Last Recorded V/S: Last Vital Signs Temp 36.7 C 06/27/19 23:54 Pulse 68 06/27/19 23:54 Resp 18 06/27/19 23:54 BP 141/69 H 06/27/19 23:54 Pulse Ox 99 06/27/19 23:54 - Orders/Labs/Meds Orders: Active Orders 24 hr Category Date Time Status Knee 3V Lt [CR] Urgent Exams 06/28/19 00:20 Taken DME for Discharge [COMM] Urgent Oth 06/28/19 02:25 Ordered Departure - Departure Time of Disposition: 02:29 Disposition: Home, Self-Care 01 Condition: Fair Clinical Impression: Contusion of left knee Qualifiers: Encounter type: initial encounter Qualified Code(s): S80.02XA - Contusion of left knee, initial encounter Strain of left knee Qualifiers: Encounter type: initial encounter Qualified Code(s): S86.912A - Strain of unspecified muscle(s) and tendon(s) at lower leg level, left leg, initial encounter - Discharge Information *PRESCRIPTION DRUG MONITORING PROGRAM REVIEWED*: Not Applicable *COPY OF PRESCRIPTION DRUG MONITORING REPORT IN PATIENT MARCY: Not Applicable Instructions: Contusion, [id number], Muscle Strain, [id number] Care Plan Goals: The patient was advised of the examination and x-ray results during the visit. The patient was placed in a left knee immobilizer and given a set of crutches while in the ED. The patient should follow-up with his primary care facility for continued evaluation and management. If the patient has any additional symptoms or concerns, the patient should either return to the emergency department or visit his primary care provider. - My Orders Last 24 Hours: My Active Orders 06/28/19 00:20 Knee 3V Lt [CR] Urgent 06/28/19 02:25 DME for Discharge [COMM] Urgent - Assessment/Plan Last 24 Hours: My Active Orders 06/28/19 00:20 Knee 3V Lt [CR] Urgent 06/28/19 02:25 DME for Discharge [COMM] Urgent
== END 2019-06-28 02:47 | disposition home or self-care (01) ==
LOC: DL.ED 21:39
DX: S86.912A Strain of unspecified muscle(s) and tendon(s) at lower leg level, left leg, initial encounter (principal); I10 Essential (primary) hypertension; M19.90 Unspecified osteoarthritis, unspecified site; Z88.0 Allergy status to penicillin; Z88.5 Allergy status to narcotic agent; Z79.899 Other long term (current) drug therapy; F17.210 Nicotine dependence, cigarettes, uncomplicated; W01.0XXA Fall on same level from slipping, tripping and stumbling without subsequent striking against object, initial encounter
CPT/HCPCS: 73562-LT; 99283-25

== ENCOUNTER 2019-08-15 03:28 | Emergency (ER) | payer OTHER ==
[2019-08-15 03:37] VITALS: BP 123/78; PULSE 61
--- NOTE | 2019-08-15 04:02 | EDM.PDOC ---
ED HPI GENERAL MEDICAL PROBLEM - General Chief Complaint: Neurological Problem Stated Complaint: AMBULANCE Time Seen by Provider: 08/15/19 03:59 Source of Information: Reports: EMS, Family History Limitations: Reports: Other (postictal [id number]) - History of Present Illness INITIAL COMMENTS - FREE TEXT/NARRATIVE: EMS states pt had multiple seizures requiring Rx en route for control. family arrived stating pt been c/o severe headache earlier before his seizures began. 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, Other (see below) Other Treatments BATTERY ASSEMBLER: Verzed - Related Data Allergies Allergy/AdvReac Type Severity Reaction Status Date / Time Penicillins Allergy Tachycardia Verified 08/15/19 03:38 tramadol Allergy Other Verified 08/15/19 03:38 Home Meds: Home Meds Phenytoin Sodium Extended [Dilantin] 200 mg PO ACBREAKFAST 12/30/14 [History] Acetaminophen [Tylenol Extra Strength] 1,000 mg PO Q12H 11/03/15 [History] Phenytoin Sodium Extended 300 mg PO BEDTIME 02/11/17 [History] Triamcinolone Acetonide [Triamcinolone Acetonide 0.1% Oint] 1 applic TOP ASDIRECTED 10/15/17 [History] Past Medical History - Past Health History Medical/Surgical History: Denies Medical/Surgical History HEENT History: Reports: Impaired Vision Cardiovascular History: Reports: Hypertension Other Cardiovascular History: Stop taking medication 2 years ago- hypertension had resolved Respiratory History: Reports: None Gastrointestinal History: Reports: None Genitourinary History: Reports: None Musculoskeletal History: Reports: Arthritis, Back Pain, Chronic Neurological History: Reports: Seizure Other Neuro History: last seizure in when he had hemorrhoid surg Psychiatric History: Reports: None Endocrine/Metabolic History: Reports: None Hematologic History: Reports: None Immunologic History: Reports: None Oncologic (Cancer) History: Reports: None Dermatologic History: Reports: Eczema - Infectious Disease History Infectious Disease History: Reports: None - Past Surgical History Head Surgeries/Procedures: Reports: None HEENT Surgical History: Reports: Other (See Below) Other HEENT Surgeries/Procedures: teeth were surgically removed Cardiovascular Surgical History: Reports: None GI Surgical History: Reports: None Social & Family History - Family History Family Medical History: Noncontributory - Tobacco Use Smoking Status *Q: Current Every Day Smoker Years of Tobacco use: 25 Packs/Tins Daily: 0.3 - Caffeine Use Caffeine Use: Reports: Coffee, Soda Caffeine Use Comment: 5 cans - Recreational Drug Use Recreational Drug Use: No - Living Situation & Occupation Living situation: Reports: with Family Occupation: Employed ED ROS GENERAL - Review of Systems Review Of Systems: ROS reveals no pertinent complaints other than HPI. - Physical Exam Exam: See Below Exam Limited By: No Limitations General Appearance: Alert, WD/WN, Mild Distress, Other (postictal) Eye Exam: Bilateral Eye: PERRL (pupils ess ER @ 4mm) Ears: Hearing Grossly Normal Throat/Mouth: Normal Voice, No Airway Compromise Head Exam: Atraumatic Neck: Non-Tender, Full Range of Motion Respiratory/Chest: No Respiratory Distress Cardiovascular: Regular Rate, Rhythm GI/Abdominal: Soft, Non-Tender Neuro Exam (Abbreviated): Other (postictal) Psychiatric: Flat Affect Skin Exam: Warm, Dry, Normal Color Course - Vital Signs Last Recorded V/S: Last Vital Signs Temp 35.8 C 08/15/19 03:31 Pulse 61 08/15/19 03:31 Resp 21 H 08/15/19 03:31 BP 123/78 08/15/19 03:31 Pulse Ox 97 08/15/19 03:31 - Orders/Labs/Meds Labs: Laboratory Tests 08/15/19 08/15/19 Range/Units 03:45 03:45 WBC 9.0 (5.0-10.0) 10^3/uL RBC 4.83 (4.6-6.2) 10^6/uL Hgb 14.3 D (14.0-18.0) g/dL Hct 42.9 (40.0-54.0) % MCV 88.8 (80-100) fL MCH 29.6 (27.0-34.0) pg MCHC 33.3 (33.0-35.0) g/dL Plt Count 229 (150-450) 10^3/uL Neut % (Auto) 59.5 (42.2-75.2) % Lymph % (Auto) 22.2 (20.5-50.1) % Cook % (Auto) 11.7 H (2-8) % Eos % (Auto) 6.4 H (1.0-3.0) % Baso % (Auto) 0.2 (0.0-1.0) % Sodium 138 (135-145) mmol/L Potassium 3.5 L (3.6-5.0) mmol/L Chloride 107 (101-111) mmol/L Carbon Dioxide 25.0 (21.0-31.0) mmol/L Anion Gap 9.5 BUN 15 (7-18) mg/dL Creatinine 0.7 (0.6-1.3) mg/dL Est Cr Clr Drug Dosing 104.81 mL/min Estimated GFR (MDRD) > 60 BUN/Creatinine Ratio 21.42 Glucose 110 H (74-105) mg/dL Calcium 8.7 (8.4-10.2) mg/dl Total Bilirubin 0.5 (0.2-1.0) mg/dL AST 16 (10-42) IU/L ALT 17 (10-60) IU/L Alkaline Phosphatase 110 (42-121) IU/L Total Protein 7.0 (6.7-8.2) g/dl Albumin 3.7 (3.2-5.5) g/dl Globulin 3.3 Albumin/Globulin Ratio 1.12 Phenytoin 3.9 L (10-20) ug/mL Ethyl Alcohol < 5 mg/dL Meds: Medications Discontinued Medications Generic Name Dose Route Start Last Admin Trade Name Freq PRN Reason Stop Dose Admin Phenytoin Sodium 1,000 mg 08/15/19 05:06 08/15/19 06:01 Phenytoin IVPUSH 08/15/19 05:07 1,000 mg ONETIME ONE Administration - Re-Assessments/Exams Free Text/Narrative Re-Assessment/Exam: 08/15/19 05:58 results discussed with family Departure - Departure Time of Disposition: 06:30 Disposition: Home, Self-Care 01 Condition: Good Clinical Impression: Seizure, Subtherapeutic phenytoin level - Discharge Information Instructions: Seizure, Adult, [id number] Referrals: PCP,Unknown [Ordering Only Provider] - Forms: ED Department Discharge Additional Instructions: 1) follow up at clinic for low dilantin level 2) recheck as needed
[2019-08-15 04:09] LABS: ANION GAP 9.5; CHLORIDE,CL 107 mmol/L (101-111); SODIUM,NA 138 mmol/L (135-145)
[2019-08-15] MEDS ORDERED: Phenytoin 250 MG/5 ML SDV IVPUSH ONE (05:06)
== END 2019-08-15 06:32 | disposition home or self-care (01) ==
LOC: DL.ED 03:28
DX: G40.909 Epilepsy, unspecified, not intractable, without status epilepticus (principal); R89.2 Abnormal level of other drugs, medicaments and biological substances in specimens from other organs, systems and tissues; I10 Essential (primary) hypertension; F17.210 Nicotine dependence, cigarettes, uncomplicated; Z88.0 Allergy status to penicillin; Z88.5 Allergy status to narcotic agent; Z79.899 Other long term (current) drug therapy
CPT/HCPCS: 36415; 70450; 80053; 80185; 80320; 85025; 96374; 99285; J1165; G0480

== ENCOUNTER 2020-02-10 22:22 | Observation (INO) | payer MEDICAID, OTHER ==
[2020-02-10] MEDS ORDERED: Phenytoin 1,500 MG in Sodium Chloride 0.9% 100 ML IV ONE (22:43)
[2020-02-10 23:13] LABS: CHLORIDE,CL 103 mmol/L (98-107); SODIUM,NA 141 mmol/L (136-145)
--- NOTE | 2020-02-10 23:20 | EDM.PDOC ---
ED HPI GENERAL MEDICAL PROBLEM - General Chief Complaint: Neurological Problem Stated Complaint: seizures Time Seen by Provider: 02/10/20 22:30 Source of Information: Reports: Patient, EMS, EMS Notes Reviewed, RN, RN Notes Reviewed History Limitations: Reports: No Limitations - History of Present Illness INITIAL COMMENTS - FREE TEXT/NARRATIVE: patient presents to ER per [facility] complaint of seizure activity. EMS reports the patient had 3 seizures witnessed by family, and 2 seizures witnessed by EMS. Patient has a known seizure disorder, states he takes Dilantin twice daily, taking it last at 10 AM today. Patient is alert but somewhat postictal upon arrival to the ER. Patient states he has been having seizures about every 6 months. Patient states he has not followed up with neurology about a dosage change to his Dilantin. Patient complains of chest pain that he's been having for the past 2-3 days. Denies recent fever, chills, illness, cough, sore throat , runny nose. Onset: Today, Sudden Left Chest Pain Score (Numeric/FACES): 8 - Related Data Allergies Allergy/AdvReac Type Severity Reaction Status Date / Time Penicillins Allergy Tachycardia Verified 02/10/20 22:25 tramadol Allergy Other Verified 02/10/20 22:25 Home Meds: Home Meds Phenytoin Sodium Extended [Dilantin] 200 mg PO ACBREAKFAST 12/30/14 [History] Acetaminophen [Tylenol Extra Strength] 1,000 mg PO Q12H 11/03/15 [History] Phenytoin Sodium Extended 300 mg PO BEDTIME 02/11/17 [History] Past Medical History - Past Health History Medical/Surgical History: Denies Medical/Surgical History HEENT History: Reports: Impaired Vision Cardiovascular History: Reports: Hypertension Other Cardiovascular History: Stop taking medication 2 years ago- hypertension had resolved Respiratory History: Reports: None Gastrointestinal History: Reports: None Genitourinary History: Reports: None Musculoskeletal History: Reports: Arthritis, Back Pain, Chronic Neurological History: Reports: Seizure Other Neuro History: last seizure in when he had hemorrhoid surg Psychiatric History: Reports: None Endocrine/Metabolic History: Reports: None Hematologic History: Reports: None Immunologic History: Reports: None Oncologic (Cancer) History: Reports: None Dermatologic History: Reports: Eczema - Infectious Disease History Infectious Disease History: Reports: None - Past Surgical History Head Surgeries/Procedures: Reports: None HEENT Surgical History: Reports: Other (See Below) Other HEENT Surgeries/Procedures: teeth were surgically removed Cardiovascular Surgical History: Reports: None GI Surgical History: Reports: None Social & Family History - Family History Family Medical History: Noncontributory - Tobacco Use Smoking Status *Q: Current Every Day Smoker Years of Tobacco use: 5 Packs/Tins Daily: 0.2 - Caffeine Use Caffeine Use: Reports: Soda Caffeine Use Comment: 5 cans - Recreational Drug Use Recreational Drug Use: No - Living Situation & Occupation Living situation: Reports: with Family Occupation: Employed ED ROS GENERAL - Review of Systems Review Of Systems: Comprehensive ROS is negative, except as noted in HPI. - Physical Exam Exam: See Below Exam Limited By: Altered Mental Status General Appearance: Lethargic, Obese Eye Exam: Bilateral Eye: Nystagmus (3 sluggish) Ears: Normal External Exam, Hearing Grossly Normal Nose: Normal Inspection Throat/Mouth: Normal Inspection, Normal Voice, No Airway Compromise Head Exam: Atraumatic, Normocephalic, Facial Tenderness (forehead) Neck: Normal Inspection, Supple, Non-Tender, Full Range of Motion Respiratory/Chest: No Respiratory Distress, No Accessory Muscle Use, Chest Non- Tender, Decreased Breath Sounds Cardiovascular: Normal Peripheral Pulses, Regular Rate, Rhythm, No Edema, No Gallop, No JVD, No Murmur, No Rub GI/Abdominal: Normal Bowel Sounds, Soft, Non-Tender, No Organomegaly, No Distention, No Abnormal Bruit (Male) Exam: Deferred Rectal (Males) Exam: Deferred Neuro Exam (Abbreviated): Confused, Disoriented, Slow to Respond Back Exam: Normal Inspection, Full Range of Motion Extremities: Normal Inspection, Normal Range of Motion, Non-Tender, No Pedal Edema, Normal Capillary Refill Psychiatric: Flat Affect Skin Exam: Warm, Dry, Intact, Normal Color, No Rash Course - Vital Signs Last Recorded V/S: Last Vital Signs Temp 98.6 F 02/10/20 23:36 Pulse 77 02/10/20 23:36 Resp 20 02/10/20 23:36 BP 125/80 02/10/20 23:36 Pulse Ox 98 02/10/20 23:36 - Orders/Labs/Meds Orders: Active Orders 24 hr Category Date Time Status Admission Diagnosis [ADT] Stat ADT 02/11/20 00:17 Ordered Admission Status [Patient Status] [ADT] Routine ADT 02/11/20 00:17 Ordered EKG Documentation Completion [RC] STAT Care 02/10/20 22:42 Active Chest 1V Frontal [CR] Stat Exams 02/10/20 22:42 Taken Head wo Cont [CT] Stat Exams 02/10/20 23:43 Ordered Sodium Chloride 0.9% [Normal Saline] 1,000 ml Med 02/10/20 23:44 Ordered IV .BOLUS Medication Orders Sodium Chloride (Normal Saline) 1,000 mls @ 200 mls/hr IV .BOLUS ONE Stop: 02/11/20 04:43 Last Admin: 02/11/20 00:08 Dose: 200 mls/hr Labs: Laboratory Tests 02/10/20 02/10/20 02/10/20 Range/Units 22:25 22:25 22:33 WBC 8.7 (5.0-10.0) 10^3/uL RBC 4.91 (4.6-6.2) 10^6/uL Hgb 14.7 (14.0-18.0) g/dL Hct 44.3 (40.0-54.0) % MCV 90.2 (80-100) fL MCH 29.9 (27.0-34.0) pg MCHC 33.2 (33.0-35.0) g/dL Plt Count 247 (150-450) 10^3/uL Neut % (Auto) 57.3 (42.2-75.2) % Lymph % (Auto) 25.7 (20.5-50.1) % [place] % (Auto) 10.7 H (2-8) % Eos % (Auto) 6.1 H (1.0-3.0) % Baso % (Auto) 0.2 (0.0-1.0) % Sodium (136-145) mmol/L Potassium (3.5-5.1) mmol/L Chloride (98-107) mmol/L Carbon Dioxide (21-32) mmol/L Anion Gap (7-13) mEq/L BUN (7-18) mg/dL Creatinine (0.70-1.30) mg/dL Est Cr Clr Drug Dosing mL/min Estimated GFR (MDRD) BUN/Creatinine Ratio (No establ ref range) Glucose (74-99) mg/dL Calcium (8.5-10.1) mg/dL Total Bilirubin (0.2-1.0) mg/dL AST (15-37) U/L ALT (16-63) U/L Alkaline Phosphatase (46-116) U/L Troponin I (0.000-0.056) ng/mL Total Protein (6.4-8.2) g/dL Albumin (3.4-5.0) g/dL Globulin Albumin/Globulin Ratio Urine Color Light yellow (YELLOW) Urine Appearance Clear (CLEAR) Urine pH 6.5 (5.0-9.0) Ur Specific [place] <= 1.005 (1.005-1.030) Urine Protein Negative (NEGATIVE) Urine Glucose (UA) Negative (NEGATIVE) Urine Ketones Negative (NEGATIVE) Urine Occult Blood Negative (NEGATIVE) Urine Nitrite Negative (NEGATIVE) Urine Bilirubin Negative (NEGATIVE) Urine Urobilinogen 0.2 (0.2-1.0) mg/dL Ur Leukocyte Esterase Negative (NEGATIVE) Urine Opiates Screen Negative (NEGATIVE) Ur Oxycodone Screen Negative (NEGATIVE) Urine Methadone Screen Negative (NEGATIVE) Ur Barbiturates Screen Negative (NEGATIVE) Phenytoin (10-20 (Therapeutic)) ug/mL U Tricyclic Antidepress Negative (NEGATIVE) Ur Phencyclidine Scrn Negative (NEGATIVE) Ur Amphetamine Screen Negative (NEGATIVE) U Methamphetamines Scrn Negative (NEGATIVE) Urine MDMA Screen Negative (NEGATIVE) U Benzodiazepines Scrn Negative (NEGATIVE) Urine Cocaine Screen Negative (NEGATIVE) U Marijuana (THC) Screen Negative (NEGATIVE) Ethyl Alcohol (0) mg/dL 02/10/20 02/10/20 Range/Units 22:33 22:33 WBC (5.0-10.0) 10^3/uL RBC (4.6-6.2) 10^6/uL Hgb (14.0-18.0) g/dL Hct (40.0-54.0) % MCV (80-100) fL MCH (27.0-34.0) pg MCHC (33.0-35.0) g/dL Plt Count (150-450) 10^3/uL Neut % (Auto) (42.2-75.2) % Lymph % (Auto) (20.5-50.1) % [place] % (Auto) (2-8) % Eos % (Auto) (1.0-3.0) % Baso % (Auto) (0.0-1.0) % Sodium 141 (136-145) mmol/L Potassium 4.0 (3.5-5.1) mmol/L Chloride 103 (98-107) mmol/L Carbon Dioxide 28 (21-32) mmol/L Anion Gap 14.0 H (7-13) mEq/L BUN 14 (7-18) mg/dL Creatinine 0.72 (0.70-1.30) mg/dL Est Cr Clr Drug Dosing 146.71 mL/min Estimated GFR (MDRD) > 60 BUN/Creatinine Ratio 19.4 (No establ ref range) Glucose 98 (74-99) mg/dL Calcium 8.4 L (8.5-10.1) mg/dL Total Bilirubin 0.1 L (0.2-1.0) mg/dL AST 16 (15-37) U/L ALT 30 (16-63) U/L Alkaline Phosphatase 203 H (46-116) U/L Troponin I < 0.017 (0.000-0.056) ng/mL Total Protein 7.5 (6.4-8.2) g/dL Albumin 3.7 (3.4-5.0) g/dL Globulin 3.8 Albumin/Globulin Ratio 1.0 Urine Color (YELLOW) Urine Appearance (CLEAR) Urine pH (5.0-9.0) Ur Specific [place] (1.005-1.030) Urine Protein (NEGATIVE) Urine Glucose (UA) (NEGATIVE) Urine Ketones (NEGATIVE) Urine Occult Blood (NEGATIVE) Urine Nitrite (NEGATIVE) Urine Bilirubin (NEGATIVE) Urine Urobilinogen (0.2-1.0) mg/dL Ur Leukocyte Esterase (NEGATIVE) Urine Opiates Screen (NEGATIVE) Ur Oxycodone Screen (NEGATIVE) Urine Methadone Screen (NEGATIVE) Ur Barbiturates Screen (NEGATIVE) Phenytoin 6 L (10-20 (Therapeutic)) ug/mL U Tricyclic Antidepress (NEGATIVE) Ur Phencyclidine Scrn (NEGATIVE) Ur Amphetamine Screen (NEGATIVE) U Methamphetamines Scrn (NEGATIVE) Urine MDMA Screen (NEGATIVE) U Benzodiazepines Scrn (NEGATIVE) Urine Cocaine Screen (NEGATIVE) U Marijuana (THC) Screen (NEGATIVE) Ethyl Alcohol < 3 (0) mg/dL Meds: Medications Generic Name Dose Route Start Last Admin Trade Name Freq PRN Reason Stop Dose Admin Sodium Chloride 1,000 mls @ 200 mls/hr 02/10/20 23:44 02/11/20 00:08 Normal Saline IV 02/11/20 04:43 200 mls/hr .BOLUS ONE Administration Discontinued Medications Generic Name Dose Route Start Last Admin Trade Name Skyler PRN Reason Stop Dose Admin Phenytoin Sodium 1,500 mg/ 130 mls @ 260 mls/hr 02/10/20 22:43 02/10/20 22:55 Sodium Chloride IV 02/10/20 22:44 260 mls/hr ONETIME ONE Administration Lorazepam 2 mg 02/10/20 23:38 02/10/20 23:43 Ativan IVPUSH 02/10/20 23:39 2 mg ONETIME ONE Administration - Radiology Interpretation Free Text/Narrative:: Chest xray: FINDINGS: Lungs: Atelectatic and/or early infiltrative changes noted within the medial aspect of the right lung base. Pleural space: Unremarkable. No pleural effusion. No pneumothorax. Heart/Mediastinum: Unremarkable. No cardiomegaly. Bones/joints: Unremarkable. IMPRESSION: Atelectatic and/or early infiltrative changes noted within the medial aspect of the right lung base. Thank you for allowing us to participate in the care of your patient. Dictated and Authenticated by: Shaun Deng DO 02/10/2020 10:57 PM Central Time ([place] & [place]) Head CT wo contrast: FINDINGS: Brain: The brain is stable in appearance. Click no intracranial hemorrhage There is no acute edema, mass effect or shift of the normally midline structures. The chapa-white matter differentiation is preserved. There are no extra-axial fluid collections. Ventricles: The ventricles and sulci are age appropriate. Bones/joints: The calvarium is intact. Sinuses: There is partial opacification of the right maxillary sinus. The other visualized paranasal sinuses are normally aerated. Mastoid air cells: The mastoid air cells and middle ear cavities are normally aerated. Soft tissues: No soft tissue hematoma is identified. IMPRESSION: Stable head CT with no acute intracranial pathology identified. Thank you for allowing us to participate in the care of your patient. Dictated and Authenticated by: Marissa Werner MD 02/11/2020 12:13 AM Central Time ([place] & [place]) See rad report Departure - Departure Time of Disposition: 00:16 Disposition: Refer to Observation Condition: Fair Clinical Impression: Seizure, Subtherapeutic phenytoin level - Discharge Information *PRESCRIPTION DRUG MONITORING PROGRAM REVIEWED*: No *COPY OF PRESCRIPTION DRUG MONITORING REPORT IN PATIENT MARCY: No Forms: ED Department Discharge Sepsis Event Note - Evaluation Sepsis Screening Result: No Definite Risk - Focused Exam Vital Signs: Vital Signs Temp Pulse Resp BP Pulse Ox 02/10/20 23:36 98.6 F 77 20 125/80 98 02/10/20 22:26 98.5 F 73 16 137/83 100 Date Exam was Performed: 02/11/20 Time Exam was Performed: 00:19 - My Orders Last 24 Hours: My Active Orders 02/10/20 22:42 EKG Documentation Completion [RC] STAT Chest 1V Frontal [CR] Stat 02/10/20 23:43 Head wo Cont [CT] Stat 02/10/20 23:44 Sodium Chloride 0.9% [Normal Saline] 1,000 ml IV .BOLUS 02/11/20 00:17 Admission Diagnosis [ADT] Stat Admission Status [Patient Status] [ADT] Routine - Assessment/Plan Last 24 Hours: My Active Orders 02/10/20 22:42 EKG Documentation Completion [RC] STAT Chest 1V Frontal [CR] Stat 02/10/20 23:43 Head wo Cont [CT] Stat 02/10/20 23:44 Sodium Chloride 0.9% [Normal Saline] 1,000 ml IV .BOLUS 02/11/20 00:17 Admission Diagnosis [ADT] Stat Admission Status [Patient Status] [ADT] Routine
[2020-02-10] MEDS ORDERED: LORazepam 2 MG/ML SDV IVPUSH ONE (23:38)
[2020-02-10] MEDS ORDERED: Sodium Chloride 0.9% 1,000 ML IV ONE (23:44)
[2020-02-11] MEDS ORDERED: LORazepam 2 MG/ML SDV IVPUSH PRN (00:39)
--- NOTE | 2020-02-11 00:45 | PCM.HP ---
H&P History of Present Illness - General Date of Service: 02/11/20 Admit Problem/Dx: Admission Diagnosis/Problem Admission Diagnosis/Problem Seizure - History of Present Illness Initial Comments - Free Text/Narative: Mr. Collier is a 39 yo male with past medical history significant for seizure disorder who presented to the hospital due to seizure. apparently patient had multiple witnessed seizures prior to coming in and some was witnessed by EMS. he reported taking his dilantin in the morning. in the ED, patient was reportedly post ictal. lab work was remarkable for subtherapeutic dilantin level at 6 (therapeutic range 10-20). CT head showed no evidence of acute intracranial abnormalities. patient said that he is compliant with meds. he feels well at time of my evaluation. he reported smoking of 4 cigarettes daily. Left Chest Pain Score (Numeric/FACES): 8 - Related Data Allergies/Adverse Reactions: Allergies Allergy/AdvReac Type Severity Reaction Status Date / Time Penicillins Allergy Tachycardia Verified 02/10/20 22:25 tramadol Allergy Other Verified 02/10/20 22:25 Home Medications: Home Meds Phenytoin Sodium Extended [Dilantin] 200 mg PO ACBREAKFAST 12/30/14 [History] Acetaminophen [Tylenol Extra Strength] 1,000 mg PO Q12H 11/03/15 [History] Phenytoin Sodium Extended 300 mg PO BEDTIME 02/11/17 [History] Past Medical History - Past Health History Medical/Surgical History: Denies Medical/Surgical History HEENT History: Reports: Impaired Vision Cardiovascular History: Reports: Hypertension Other Cardiovascular History: Stop taking medication 2 years ago- hypertension had resolved Respiratory History: Reports: None Gastrointestinal History: Reports: None Genitourinary History: Reports: None Musculoskeletal History: Reports: Arthritis, Back Pain, Chronic Neurological History: Reports: Seizure Other Neuro History: last seizure in when he had hemorrhoid surg Psychiatric History: Reports: None Endocrine/Metabolic History: Reports: None Hematologic History: Reports: None Immunologic History: Reports: None Oncologic (Cancer) History: Reports: None Dermatologic History: Reports: Eczema - Infectious Disease History Infectious Disease History: Reports: None - Past Surgical History Head Surgeries/Procedures: Reports: None HEENT Surgical History: Reports: Other (See Below) Other HEENT Surgeries/Procedures: teeth were surgically removed Cardiovascular Surgical History: Reports: None GI Surgical History: Reports: None Social & Family History - Family History Family Medical History: Noncontributory - Tobacco Use Smoking Status *Q: Current Every Day Smoker Years of Tobacco use: 5 Packs/Tins Daily: 0.2 - Caffeine Use Caffeine Use: Reports: Soda Caffeine Use Comment: 5 cans - Recreational Drug Use Recreational Drug Use: No - Living Situation & Occupation Living situation: Reports: with Family Occupation: Employed H&P Review of Systems - Review of Systems: Review Of Systems: Comprehensive ROS is negative, except as noted in HPI. Exam - Exam Exam: See Below - Vital Signs Vital Signs: Last Vital Signs Temp 37.0 C 02/10/20 23:36 Pulse 77 02/10/20 23:36 Resp 20 02/10/20 23:36 BP 125/80 02/10/20 23:36 Pulse Ox 98 02/10/20 23:36 Weight: 136.94 kg - Exam General: Alert, Oriented Lungs: Clear to Auscultation, Normal Respiratory Effort Cardiovascular: Regular Rate, Regular Rhythm GI/Abdominal Exam: Normal Bowel Sounds, Soft, Non-Tender, No Distention Extremities: No Pedal Edema Skin: Warm, Dry, Intact Neuro Extensive - Mental Status: Alert, Oriented x3 Neuro Extensive - Motor, Sensory, Reflexes: CN II-XII Intact Psychiatric: Alert, Normal Affect, Normal Mood - Patient Data Lab Results Last 24 hrs: Laboratory Results - last 24 hr 02/10/20 02/10/20 02/10/20 Range/Units 22:25 22:25 22:33 WBC 8.7 (5.0-10.0) 10^3/uL RBC 4.91 (4.6-6.2) 10^6/uL Hgb 14.7 (14.0-18.0) g/dL Hct 44.3 (40.0-54.0) % MCV 90.2 (80-100) fL MCH 29.9 (27.0-34.0) pg MCHC 33.2 (33.0-35.0) g/dL Plt Count 247 (150-450) 10^3/uL Neut % (Auto) 57.3 (42.2-75.2) % Lymph % (Auto) 25.7 (20.5-50.1) % [place] % (Auto) 10.7 H (2-8) % Eos % (Auto) 6.1 H (1.0-3.0) % Baso % (Auto) 0.2 (0.0-1.0) % Sodium (136-145) mmol/L Potassium (3.5-5.1) mmol/L Chloride (98-107) mmol/L Carbon Dioxide (21-32) mmol/L Anion Gap (7-13) mEq/L BUN (7-18) mg/dL Creatinine (0.70-1.30) mg/dL Est Cr Clr Drug Dosing mL/min Estimated GFR (MDRD) BUN/Creatinine Ratio (No establ ref range) Glucose (74-99) mg/dL Calcium (8.5-10.1) mg/dL Total Bilirubin (0.2-1.0) mg/dL AST (15-37) U/L ALT (16-63) U/L Alkaline Phosphatase (46-116) U/L Troponin I (0.000-0.056) ng/mL Total Protein (6.4-8.2) g/dL Albumin (3.4-5.0) g/dL Globulin Albumin/Globulin Ratio Urine Color Light yellow (YELLOW) Urine Appearance Clear (CLEAR) Urine pH 6.5 (5.0-9.0) Ur Specific [place] <= 1.005 (1.005-1.030) Urine Protein Negative (NEGATIVE) Urine Glucose (UA) Negative (NEGATIVE) Urine Ketones Negative (NEGATIVE) Urine Occult Blood Negative (NEGATIVE) Urine Nitrite Negative (NEGATIVE) Urine Bilirubin Negative (NEGATIVE) Urine Urobilinogen 0.2 (0.2-1.0) mg/dL Ur Leukocyte Esterase Negative (NEGATIVE) Urine Opiates Screen Negative (NEGATIVE) Ur Oxycodone Screen Negative (NEGATIVE) Urine Methadone Screen Negative (NEGATIVE) Ur Barbiturates Screen Negative (NEGATIVE) Phenytoin (10-20 (Therapeutic)) ug/mL U Tricyclic Antidepress Negative (NEGATIVE) Ur Phencyclidine Scrn Negative (NEGATIVE) Ur Amphetamine Screen Negative (NEGATIVE) U Methamphetamines Scrn Negative (NEGATIVE) Urine MDMA Screen Negative (NEGATIVE) U Benzodiazepines Scrn Negative (NEGATIVE) Urine Cocaine Screen Negative (NEGATIVE) U Marijuana (THC) Screen Negative (NEGATIVE) Ethyl Alcohol (0) mg/dL 02/10/20 02/10/20 Range/Units 22:33 22:33 WBC (5.0-10.0) 10^3/uL RBC (4.6-6.2) 10^6/uL Hgb (14.0-18.0) g/dL Hct (40.0-54.0) % MCV (80-100) fL MCH (27.0-34.0) pg MCHC (33.0-35.0) g/dL Plt Count (150-450) 10^3/uL Neut % (Auto) (42.2-75.2) % Lymph % (Auto) (20.5-50.1) % [place] % (Auto) (2-8) % Eos % (Auto) (1.0-3.0) % Baso % (Auto) (0.0-1.0) % Sodium 141 (136-145) mmol/L Potassium 4.0 (3.5-5.1) mmol/L Chloride 103 (98-107) mmol/L Carbon Dioxide 28 (21-32) mmol/L Anion Gap 14.0 H (7-13) mEq/L BUN 14 (7-18) mg/dL Creatinine 0.72 (0.70-1.30) mg/dL Est Cr Clr Drug Dosing 146.71 mL/min Estimated GFR (MDRD) > 60 BUN/Creatinine Ratio 19.4 (No establ ref range) Glucose 98 (74-99) mg/dL Calcium 8.4 L (8.5-10.1) mg/dL Total Bilirubin 0.1 L (0.2-1.0) mg/dL AST 16 (15-37) U/L ALT 30 (16-63) U/L Alkaline Phosphatase 203 H (46-116) U/L Troponin I < 0.017 (0.000-0.056) ng/mL Total Protein 7.5 (6.4-8.2) g/dL Albumin 3.7 (3.4-5.0) g/dL Globulin 3.8 Albumin/Globulin Ratio 1.0 Urine Color (YELLOW) Urine Appearance (CLEAR) Urine pH (5.0-9.0) Ur Specific [place] (1.005-1.030) Urine Protein (NEGATIVE) Urine Glucose (UA) (NEGATIVE) Urine Ketones (NEGATIVE) Urine Occult Blood (NEGATIVE) Urine Nitrite (NEGATIVE) Urine Bilirubin (NEGATIVE) Urine Urobilinogen (0.2-1.0) mg/dL Ur Leukocyte Esterase (NEGATIVE) Urine Opiates Screen (NEGATIVE) Ur Oxycodone Screen (NEGATIVE) Urine Methadone Screen (NEGATIVE) Ur Barbiturates Screen (NEGATIVE) Phenytoin 6 L (10-20 (Therapeutic)) ug/mL U Tricyclic Antidepress (NEGATIVE) Ur Phencyclidine Scrn (NEGATIVE) Ur Amphetamine Screen (NEGATIVE) U Methamphetamines Scrn (NEGATIVE) Urine MDMA Screen (NEGATIVE) U Benzodiazepines Scrn (NEGATIVE) Urine Cocaine Screen (NEGATIVE) U Marijuana (THC) Screen (NEGATIVE) Ethyl Alcohol < 3 (0) mg/dL Result Diagrams: 02/10/20 22:33 02/10/20 22:33 Problem List Initiated/Reviewed/Updated: Yes Orders Last 24hrs: Active Orders 24 hr Category Date Time Status Admission Diagnosis [ADT] Stat ADT 02/11/20 00:17 Ordered Admission Status [Patient Status] [ADT] Routine ADT 02/11/20 00:17 Active EKG Documentation Completion [RC] STAT Care 02/10/20 22:42 Active Oxygen Therapy [RC] PRN Care 02/11/20 00:39 Active Up With Assistance [RC] ASDIRECTED Care 02/11/20 00:39 Active VTE/DVT Education [RC] PER UNIT ROUTINE Care 02/11/20 00:39 Active Vital Signs [RC] Q4H Care 02/11/20 00:39 Active PT Evaluation and Treatment [CONS] Routine Cons 02/11/20 00:39 Active Regular Diet [DIET] Diet 02/11/20 Breakfast Active Chest 1V Frontal [CR] Stat Exams 02/10/20 22:42 Taken Head wo Cont [CT] Stat Exams 02/10/20 23:43 Taken BASIC METABOLIC PANEL,BMP [CHEM] AM Lab 02/11/20 05:11 Ordered BASIC METABOLIC PANEL,BMP [CHEM] AM Lab 02/12/20 05:11 Ordered CBC WITH AUTO DIFF [HEME] AM Lab 02/11/20 05:11 Ordered CBC WITH AUTO DIFF [HEME] AM Lab 02/12/20 05:11 Ordered Heparin Sodium Med 02/11/20 06:00 Ordered 5,000 units SUBCUT Q8HR LORazepam [Ativan] Med 02/11/20 00:39 Ordered 2 mg IVPUSH Q6H PRN Phenytoin Med 02/11/20 06:00 Ordered 200 mg PO ACBREAKFAST Phenytoin Sodium Extended [Phenytoin Sodium Extended] Med 02/11/20 21:00 Ordered 300 mg PO BEDTIME Sodium Chloride 0.9% [Normal Saline] 1,000 ml Med 02/10/20 23:44 Active IV .BOLUS Seizure Precautions [OM.PC] Routine Oth 02/11/20 00:39 Ordered Resuscitation Status Routine Resus Stat 02/11/20 00:39 Ordered Medication Orders Heparin Sodium (Porcine) (Heparin Sodium) 5,000 units SUBCUT Q8HR SYDNI Sodium Chloride (Normal Saline) 1,000 mls @ 200 mls/hr IV .BOLUS ONE Stop: 02/11/20 04:43 Last Admin: 02/11/20 00:08 Dose: 200 mls/hr Lorazepam (Ativan) 2 mg IVPUSH Q6H PRN PRN Reason: Seizures Non-Formulary Medication (Phenytoin Sodium Extended [Phenytoin Sodium Extended] ) 300 mg PO BEDTIME SYDNI Phenytoin Sodium (Phenytoin) 200 mg PO ACBREAKFAST SYDNI Assessment/Plan Comment:: Seizure disorder with breakthrough seizure patient denied non compliance will restart home dilantin IV ativan 2 mg PRN for breakthrough seizures seizure precautions morbid obesity weight loss recommended tobacco abuse counseling provided DVT Prophylaxis heparin
[2020-02-11] MEDS ORDERED: Acetaminophen 325 MG Tab PO PRN (00:56)
[2020-02-11] MEDS ORDERED: Heparin Sodium 5,000 Units/ML Vial SUBCUT SCH (06:00)
[2020-02-11 06:39] LABS: ANION GAP 12.3 mEq/L (7-13); CHLORIDE,CL 107 mmol/L (98-107); SODIUM,NA 142 mmol/L (136-145)
[2020-02-11 07:50] VITALS: BP 118/66; PULSE 98
--- NOTE | 2020-02-11 09:46 | PCM.DCSUM1 ---
Discharge Summary - Hospital Course Free Text/Narrative:: Presented with multiple seizures. Pt sayas he has been compliant with dilantin Dilantin level was low at 6. had no further seizure since admission. Will increase dilantin dose from @00 mg Am and 300 mg PM to 300 mg BID f/up with PMD Diagnosis: Stroke: No - Discharge Data Discharge Date: 02/11/20 Discharge Disposition: Home, Self-Care 01 Condition: Good - Referral to Home Health Primary Care Physician: Flor Bear MD - Patient Summary/Data Consults: Consultations 02/11/20 00:39 PT Evaluation and Treatment [CONS] Routine - Patient Instructions Diet: Heart Healthy Diet Activity: As Tolerated - Discharge Plan *PRESCRIPTION DRUG MONITORING PROGRAM REVIEWED*: No *COPY OF PRESCRIPTION DRUG MONITORING REPORT IN PATIENT MARCY: No Home Medications: Home Meds Acetaminophen [Tylenol Extra Strength] 1,000 mg PO Q12H 11/03/15 [History] Phenytoin Sodium Extended 300 mg PO BID #0 cap 02/11/20 [Rx] Forms: ED Department Discharge - Discharge Summary/Plan Comment DC Time >30 min.: No - General Info Date of Service: 02/11/20 - Review of Systems General: Denies: Fever, Weakness Pulmonary: Denies: Shortness of Breath Cardiovascular: Denies: Chest Pain Gastrointestinal: Denies: Abdominal Pain Neurological: Denies: Confusion, Gait Disturbance - Patient Data Vitals - Most Recent: Last Vital Signs Temp 98.0 F 02/11/20 07:48 Pulse 98 02/11/20 07:48 Resp 20 02/11/20 07:48 BP 118/66 02/11/20 07:48 Pulse Ox 99 02/11/20 07:48 Weight - Most Recent: 301 lb 14.4 oz I&O - Last 24 hours: Intake & Output 02/10/20 02/11/20 02/11/20 22:59 06:59 14:59 Intake Total 1470 320 Output Total 640 Balance 830 320 Lab Results - Last 24 hrs: Laboratory Results - last 24 hr 02/10/20 02/10/20 02/10/20 Range/Units 22:25 22:25 22:33 WBC 8.7 (5.0-10.0) 10^3/uL RBC 4.91 (4.6-6.2) 10^6/uL Hgb 14.7 (14.0-18.0) g/dL Hct 44.3 (40.0-54.0) % MCV 90.2 (80-100) fL MCH 29.9 (27.0-34.0) pg MCHC 33.2 (33.0-35.0) g/dL Plt Count 247 (150-450) 10^3/uL Neut % (Auto) 57.3 (42.2-75.2) % Lymph % (Auto) 25.7 (20.5-50.1) % [place] % (Auto) 10.7 H (2-8) % Eos % (Auto) 6.1 H (1.0-3.0) % Baso % (Auto) 0.2 (0.0-1.0) % Sodium (136-145) mmol/L Potassium (3.5-5.1) mmol/L Chloride (98-107) mmol/L Carbon Dioxide (21-32) mmol/L Anion Gap (7-13) mEq/L BUN (7-18) mg/dL Creatinine (0.70-1.30) mg/dL Est Cr Clr Drug Dosing mL/min Estimated GFR (MDRD) BUN/Creatinine Ratio (No establ ref range) Glucose (74-99) mg/dL Calcium (8.5-10.1) mg/dL Total Bilirubin (0.2-1.0) mg/dL AST (15-37) U/L ALT (16-63) U/L Alkaline Phosphatase (46-116) U/L Troponin I (0.000-0.056) ng/mL Total Protein (6.4-8.2) g/dL Albumin (3.4-5.0) g/dL Globulin Albumin/Globulin Ratio Urine Color Light yellow (YELLOW) Urine Appearance Clear (CLEAR) Urine pH 6.5 (5.0-9.0) Ur Specific [place] <= 1.005 (1.005-1.030) Urine Protein Negative (NEGATIVE) Urine Glucose (UA) Negative (NEGATIVE) Urine Ketones Negative (NEGATIVE) Urine Occult Blood Negative (NEGATIVE) Urine Nitrite Negative (NEGATIVE) Urine Bilirubin Negative (NEGATIVE) Urine Urobilinogen 0.2 (0.2-1.0) mg/dL Ur Leukocyte Esterase Negative (NEGATIVE) Urine Opiates Screen Negative (NEGATIVE) Ur Oxycodone Screen Negative (NEGATIVE) Urine Methadone Screen Negative (NEGATIVE) Ur Barbiturates Screen Negative (NEGATIVE) Phenytoin (10-20 (Therapeutic)) ug/mL U Tricyclic Antidepress Negative (NEGATIVE) Ur Phencyclidine Scrn Negative (NEGATIVE) Ur Amphetamine Screen Negative (NEGATIVE) U Methamphetamines Scrn Negative (NEGATIVE) Urine MDMA Screen Negative (NEGATIVE) U Benzodiazepines Scrn Negative (NEGATIVE) Urine Cocaine Screen Negative (NEGATIVE) U Marijuana (THC) Screen Negative (NEGATIVE) Ethyl Alcohol (0) mg/dL 02/10/20 02/10/20 02/11/20 Range/Units 22:33 22:33 06:00 WBC 6.7 (5.0-10.0) 10^3/uL RBC 4.59 L (4.6-6.2) 10^6/uL Hgb 13.7 L (14.0-18.0) g/dL Hct 41.8 (40.0-54.0) % MCV 91.1 (80-100) fL MCH 29.8 (27.0-34.0) pg MCHC 32.8 L (33.0-35.0) g/dL Plt Count 230 (150-450) 10^3/uL Neut % (Auto) 55.4 (42.2-75.2) % Lymph % (Auto) 26.4 (20.5-50.1) % [place] % (Auto) 11.6 H (2-8) % Eos % (Auto) 6.5 H (1.0-3.0) % Baso % (Auto) 0.1 (0.0-1.0) % Sodium 141 (136-145) mmol/L Potassium 4.0 (3.5-5.1) mmol/L Chloride 103 (98-107) mmol/L Carbon Dioxide 28 (21-32) mmol/L Anion Gap 14.0 H (7-13) mEq/L BUN 14 (7-18) mg/dL Creatinine 0.72 (0.70-1.30) mg/dL Est Cr Clr Drug Dosing 146.71 mL/min Estimated GFR (MDRD) > 60 BUN/Creatinine Ratio 19.4 (No establ ref range) Glucose 98 (74-99) mg/dL Calcium 8.4 L (8.5-10.1) mg/dL Total Bilirubin 0.1 L (0.2-1.0) mg/dL AST 16 (15-37) U/L ALT 30 (16-63) U/L Alkaline Phosphatase 203 H (46-116) U/L Troponin I < 0.017 (0.000-0.056) ng/mL Total Protein 7.5 (6.4-8.2) g/dL Albumin 3.7 (3.4-5.0) g/dL Globulin 3.8 Albumin/Globulin Ratio 1.0 Urine Color (YELLOW) Urine Appearance (CLEAR) Urine pH (5.0-9.0) Ur Specific [place] (1.005-1.030) Urine Protein (NEGATIVE) Urine Glucose (UA) (NEGATIVE) Urine Ketones (NEGATIVE) Urine Occult Blood (NEGATIVE) Urine Nitrite (NEGATIVE) Urine Bilirubin (NEGATIVE) Urine Urobilinogen (0.2-1.0) mg/dL Ur Leukocyte Esterase (NEGATIVE) Urine Opiates Screen (NEGATIVE) Ur Oxycodone Screen (NEGATIVE) Urine Methadone Screen (NEGATIVE) Ur Barbiturates Screen (NEGATIVE) Phenytoin 6 L (10-20 (Therapeutic)) ug/mL U Tricyclic Antidepress (NEGATIVE) Ur Phencyclidine Scrn (NEGATIVE) Ur Amphetamine Screen (NEGATIVE) U Methamphetamines Scrn (NEGATIVE) Urine MDMA Screen (NEGATIVE) U Benzodiazepines Scrn (NEGATIVE) Urine Cocaine Screen (NEGATIVE) U Marijuana (THC) Screen (NEGATIVE) Ethyl Alcohol < 3 (0) mg/dL 02/11/20 Range/Units 06:00 WBC (5.0-10.0) 10^3/uL RBC (4.6-6.2) 10^6/uL Hgb (14.0-18.0) g/dL Hct (40.0-54.0) % MCV (80-100) fL MCH (27.0-34.0) pg MCHC (33.0-35.0) g/dL Plt Count (150-450) 10^3/uL Neut % (Auto) (42.2-75.2) % Lymph % (Auto) (20.5-50.1) % [place] % (Auto) (2-8) % Eos % (Auto) (1.0-3.0) % Baso % (Auto) (0.0-1.0) % Sodium 142 (136-145) mmol/L Potassium 4.3 (3.5-5.1) mmol/L Chloride 107 (98-107) mmol/L Carbon Dioxide 27 (21-32) mmol/L Anion Gap 12.3 (7-13) mEq/L BUN 12 (7-18) mg/dL Creatinine 0.72 (0.70-1.30) mg/dL Est Cr Clr Drug Dosing 146.71 mL/min Estimated GFR (MDRD) > 60 BUN/Creatinine Ratio (No establ ref range) Glucose 84 (74-99) mg/dL Calcium 8.1 L (8.5-10.1) mg/dL Total Bilirubin (0.2-1.0) mg/dL AST (15-37) U/L ALT (16-63) U/L Alkaline Phosphatase (46-116) U/L Troponin I (0.000-0.056) ng/mL Total Protein (6.4-8.2) g/dL Albumin (3.4-5.0) g/dL Globulin Albumin/Globulin Ratio Urine Color (YELLOW) Urine Appearance (CLEAR) Urine pH (5.0-9.0) Ur Specific [place] (1.005-1.030) Urine Protein (NEGATIVE) Urine Glucose (UA) (NEGATIVE) Urine Ketones (NEGATIVE) Urine Occult Blood (NEGATIVE) Urine Nitrite (NEGATIVE) Urine Bilirubin (NEGATIVE) Urine Urobilinogen (0.2-1.0) mg/dL Ur Leukocyte Esterase (NEGATIVE) Urine Opiates Screen (NEGATIVE) Ur Oxycodone Screen (NEGATIVE) Urine Methadone Screen (NEGATIVE) Ur Barbiturates Screen (NEGATIVE) Phenytoin (10-20 (Therapeutic)) ug/mL U Tricyclic Antidepress (NEGATIVE) Ur Phencyclidine Scrn (NEGATIVE) Ur Amphetamine Screen (NEGATIVE) U Methamphetamines Scrn (NEGATIVE) Urine MDMA Screen (NEGATIVE) U Benzodiazepines Scrn (NEGATIVE) Urine Cocaine Screen (NEGATIVE) U Marijuana (THC) Screen (NEGATIVE) Ethyl Alcohol (0) mg/dL Med Orders - Current: Current Medications Acetaminophen (Tylenol) 650 mg PO Q6H PRN PRN Reason: Pain Last Admin: 02/11/20 01:31 Dose: 650 mg Heparin Sodium (Porcine) (Heparin Sodium) 5,000 units SUBCUT Q8HR SYDNI Last Admin: 02/11/20 06:04 Dose: 5,000 units Lorazepam (Ativan) 2 mg IVPUSH Q6H PRN PRN Reason: Seizures Phenytoin Sodium (Phenytoin) 200 mg PO DAILY@1000 SYDNI Last Admin: 02/11/20 09:14 Dose: 200 mg Phenytoin Sodium (Phenytoin) 300 mg PO BEDTIME@2200 SYDNI Discontinued Medications Phenytoin Sodium 1,500 mg/ (Sodium Chloride) 130 mls @ 260 mls/hr IV ONETIME ONE Stop: 02/10/20 22:44 Last Admin: 02/10/20 22:55 Dose: 260 mls/hr Sodium Chloride (Normal Saline) 1,000 mls @ 200 mls/hr IV .BOLUS ONE Stop: 02/11/20 04:43 Last Admin: 02/11/20 00:08 Dose: 200 mls/hr Lorazepam (Ativan) 2 mg IVPUSH ONETIME ONE Stop: 02/10/20 23:39 Last Admin: 02/10/20 23:43 Dose: 2 mg - Exam General: Reports: Alert, Oriented Neck: Reports: Supple Lungs: Reports: Normal Respiratory Effort Extremities: No: Pedal Edema Skin: Reports: Warm, Dry
[2020-02-11] MEDS ORDERED: Phenytoin 100 MG Cap.ER PO SCH ×2 (10:00→22:00)
== END 2020-02-11 14:20 | disposition home or self-care (01) ==
LOC: DL.ED 22:22 → DL.MS 02-11 00:17 → DL.ED 02-11 00:24
PROVIDERS: ADMIT Internal Medicine; ATTEND Internal Medicine
DX: G40.909 Epilepsy, unspecified, not intractable, without status epilepticus (principal); E66.01 Morbid (severe) obesity due to excess calories; I10 Essential (primary) hypertension; F17.210 Nicotine dependence, cigarettes, uncomplicated; Z88.0 Allergy status to penicillin; Z88.8 Allergy status to other drugs, medicaments and biological substances; Z68.41 Body mass index [BMI] 40.0-44.9, adult
CPT/HCPCS: 36415; 70450; 71045; 80048; 80053; 80185; 80305; 80307; 81003; 84484; 85025; 93005; 96365; 96375; 97162; 99285; A9270; J1165; J1644; J2060; J7030; J7050; 96361; 96372; G0378

== ENCOUNTER 2020-03-23 22:28 | Emergency (ER) | payer MEDICAID, OTHER ==
[2020-03-23 22:36] VITALS: BP 128/72; PULSE 77
[2020-03-23] MEDS ORDERED: LORazepam 2 MG/ML SDV IVPUSH PRN (22:43)
[2020-03-23 23:22] LABS: ANION GAP 11.8 mEq/L (7-13); CHLORIDE,CL 104 mmol/L (98-107); SODIUM,NA 141 mmol/L (136-145)
[2020-03-23] MEDS ORDERED: Phenytoin 1,000 MG in Sodium Chloride 0.9% 100 ML IV ONE (23:35)
--- NOTE | 2020-03-24 02:22 | EDM.PDOC ---
ED HPI GENERAL MEDICAL PROBLEM - General Chief Complaint: Neurological Problem Stated Complaint: sl ambulance Time Seen by Provider: 03/23/20 22:30 Source of Information: Reports: Patient, EMS History Limitations: Reports: No Limitations - History of Present Illness INITIAL COMMENTS - FREE TEXT/NARRATIVE: ED via [facility] with multiple witnessed generalized seizures this evening. Versed 2.5mg given by EMS due to back to back seizure activity. Patient drowsy but reposonsive on arrival. Reports being outside in heat today. Reports compliance with taking medication. neuro follow up next month. c/o mild headache. Known seizure disorder. Reports last seizure approximately one month prior. No incontinence with seizure. - Related Data Allergies Allergy/AdvReac Type Severity Reaction Status Date / Time Penicillins Allergy Tachycardia Verified 03/23/20 22:20 tramadol Allergy Other Verified 03/23/20 22:20 Home Meds: Home Meds Acetaminophen [Tylenol Extra Strength] 1,000 mg PO Q12H 11/03/15 [History] Phenytoin Sodium Extended 300 mg PO BID #0 cap 02/11/20 [Rx] Past Medical History - Past Health History Medical/Surgical History: Denies Medical/Surgical History HEENT History: Reports: Impaired Vision Cardiovascular History: Reports: Hypertension Other Cardiovascular History: Stop taking medication 2 years ago- hypertension had resolved Respiratory History: Reports: None Gastrointestinal History: Reports: None Genitourinary History: Reports: None Musculoskeletal History: Reports: Arthritis, Back Pain, Chronic Neurological History: Reports: Seizure Other Neuro History: last seizure in when he had hemorrhoid surg Psychiatric History: Reports: None Endocrine/Metabolic History: Reports: None Hematologic History: Reports: None Immunologic History: Reports: None Oncologic (Cancer) History: Reports: None Dermatologic History: Reports: Eczema - Infectious Disease History Infectious Disease History: Reports: None - Past Surgical History Head Surgeries/Procedures: Reports: None HEENT Surgical History: Reports: Other (See Below) Other HEENT Surgeries/Procedures: teeth were surgically removed Cardiovascular Surgical History: Reports: None GI Surgical History: Reports: None Social & Family History - Family History Family Medical History: Noncontributory - Tobacco Use Smoking Status *Q: Current Every Day Smoker Years of Tobacco use: 4 Packs/Tins Daily: 0.2 Second Hand Smoke Exposure: Yes - Caffeine Use Caffeine Use: Reports: Soda Caffeine Use Comment: 5 cans - Recreational Drug Use Recreational Drug Use: No - Living Situation & Occupation Living situation: Reports: with Family Occupation: Employed ED ROS GENERAL - Review of Systems Review Of Systems: See Below Constitutional: Denies: Fever, Chills, Weakness HEENT: Reports: No Symptoms Respiratory: Reports: No Symptoms Cardiovascular: Reports: No Symptoms GI/Abdominal: Reports: No Symptoms Musculoskeletal: Reports: No Symptoms Skin: Reports: No Symptoms Neurological: Reports: Headache, Seizure (7 times) - Physical Exam Exam: See Below Exam Limited By: No Limitations General Appearance: Other (drowsy, arouses easily to voice) Eye Exam: Bilateral Eye: EOMI, PERRL (3) Ears: Normal External Exam, Normal TMs Nose: Normal Inspection Throat/Mouth: Normal Inspection Head Exam: Atraumatic, Normocephalic. No: Scalp Swelling, Scalp Ecchymosis, Scalp Tenderness Neck: Normal Inspection Respiratory/Chest: No Respiratory Distress Cardiovascular: Normal Peripheral Pulses GI/Abdominal: Normal Bowel Sounds Neuro Exam (Abbreviated): Normal Cognition, Slow to Respond (post ictal) Extremities: Normal Inspection Psychiatric: Flat Affect Skin Exam: Warm, Dry, Intact, Normal Color Course - Vital Signs Last Recorded V/S: Last Vital Signs Temp 97.8 F 03/23/20 22:28 Pulse 77 03/23/20 22:28 Resp 18 03/23/20 22:28 BP 128/72 03/23/20 22:28 Pulse Ox 95 03/23/20 22:28 - Orders/Labs/Meds Orders: Active Orders 24 hr Category Date Time Status EKG 12 Lead [EKG Documentation Completion] [RC] STAT Care 03/23/20 22:35 Active Head wo Cont [CT] Urgent Exams 03/23/20 22:45 Taken Labs: Laboratory Tests 03/23/20 03/23/20 03/23/20 Range/Units 22:55 22:55 22:55 WBC 7.3 (5.0-10.0) 10^3/uL RBC 4.77 (4.6-6.2) 10^6/uL Hgb 14.3 (14.0-18.0) g/dL Hct 43.1 (40.0-54.0) % MCV 90.4 (80-100) fL MCH 30.0 (27.0-34.0) pg MCHC 33.2 (33.0-35.0) g/dL Plt Count 246 (150-450) 10^3/uL Neut % (Auto) 67.5 (42.2-75.2) % Lymph % (Auto) 20.0 L (20.5-50.1) % [place] % (Auto) 7.7 (2-8) % Eos % (Auto) 4.7 H (1.0-3.0) % Baso % (Auto) 0.1 (0.0-1.0) % Sodium 141 (136-145) mmol/L Potassium 3.8 (3.5-5.1) mmol/L Chloride 104 (98-107) mmol/L Carbon Dioxide 29 (21-32) mmol/L Anion Gap 11.8 (7-13) mEq/L BUN 12 (7-18) mg/dL Creatinine 0.95 (0.70-1.30) mg/dL Est Cr Clr Drug Dosing 111.19 mL/min Estimated GFR (MDRD) > 60 BUN/Creatinine Ratio 12.6 (No establ ref range) Glucose 115 H (74-99) mg/dL Calcium 8.3 L (8.5-10.1) mg/dL Total Bilirubin 0.2 (0.2-1.0) mg/dL AST 17 (15-37) U/L ALT 28 (16-63) U/L Alkaline Phosphatase 163 H (46-116) U/L Total Protein 6.9 (6.4-8.2) g/dL Albumin 3.4 (3.4-5.0) g/dL Globulin 3.5 Albumin/Globulin Ratio 1.0 Phenytoin 9 L (10-20 (Therapeutic)) ug/mL Meds: Medications Discontinued Medications Generic Name Dose Route Start Last Admin Trade Name Freq PRN Reason Stop Dose Admin Phenytoin Sodium 1,000 mg/ 120 mls @ 240 mls/hr 03/23/20 23:35 03/23/20 23:47 Sodium Chloride IV 03/23/20 23:36 240 mls/hr ONETIME ONE Administration Lorazepam 1 mg 03/23/20 22:43 Ativan IVPUSH ONETIME PRN Seizures - Re-Assessments/Exams Free Text/Narrative Re-Assessment/Exam: No further seizure activity. Headache improved. Departure - Departure Time of Disposition: 02:20 Disposition: Home, Self-Care 01 Condition: Good Clinical Impression: Subtherapeutic phenytoin level, Seizure disorder - Discharge Information *PRESCRIPTION DRUG MONITORING PROGRAM REVIEWED*: No *COPY OF PRESCRIPTION DRUG MONITORING REPORT IN PATIENT MARCY: No Instructions: Seizure, Adult, [id number] Referrals: PCP,None [Ordering Only Provider] - Forms: ED Department Discharge Additional Instructions: hydrate light activity today follow up with neurology take medication as prescribed Sepsis Event Note - Evaluation Sepsis Screening Result: No Definite Risk - Focused Exam Vital Signs: Vital Signs Temp Pulse Resp BP Pulse Ox 03/23/20 22:28 97.8 F 77 18 128/72 95 Date Exam was Performed: 03/24/20 Time Exam was Performed: 06:14 - My Orders Last 24 Hours: My Active Orders 03/23/20 22:35 EKG 12 Lead [EKG Documentation Completion] [RC] STAT 03/23/20 22:45 Head wo Cont [CT] Urgent - Assessment/Plan Last 24 Hours: My Active Orders 03/23/20 22:35 EKG 12 Lead [EKG Documentation Completion] [RC] STAT 03/23/20 22:45 Head wo Cont [CT] Urgent
== END 2020-03-24 02:36 | disposition home or self-care (01) ==
LOC: DL.ED 22:28
DX: G40.909 Epilepsy, unspecified, not intractable, without status epilepticus (principal); I10 Essential (primary) hypertension; F17.210 Nicotine dependence, cigarettes, uncomplicated; R79.1 Abnormal coagulation profile; Z88.5 Allergy status to narcotic agent; Z88.0 Allergy status to penicillin
CPT/HCPCS: 36415; 70450; 80053; 80185; 85025; 93005; 96365; 99284; J1165; J7050

== ENCOUNTER 2020-04-27 18:02 | Emergency (ER) | payer MEDICAID, OTHER, SELFPAY ==
[2020-04-27] MEDS ORDERED: levETIRAcetam 1,500 MG in Sodium Chloride 0.9% 100 ML IV ONE (18:07)
[2020-04-27 18:34] VITALS: BP 123/72; PULSE 96
[2020-04-27] MEDS ORDERED: Ketorolac 30 MG/ML SDV IVPUSH ONE (18:44)
[2020-04-27 18:45] LABS: ANION GAP 12.2 mEq/L (7-13); CHLORIDE,CL 106 mmol/L (98-107); SODIUM,NA 139 mmol/L (136-145)
--- NOTE | 2020-04-27 18:46 | EDM.PDOC ---
Scribed by Tova Boyd 04/27/20 1846 for Cuba Hollins MD ED HPI GENERAL MEDICAL PROBLEM - General Source of Information: Reports: Patient, EMS, EMS Notes Reviewed, RN, RN Notes Reviewed History Limitations: Reports: No Limitations - History of Present Illness Onset: Today Location: Reports: Generalized Improves with: Reports: None Worsens with: Reports: None Associated Symptoms: Reports: No Other Symptoms <Cuba Hollins - Last Filed: 04/27/20 18:53> <Fidencio Meeks - Last Filed: 04/27/20 20:28> - General Chief Complaint: Neuro Symptoms/Deficits Stated Complaint: AMBULANCE Time Seen by Provider: 04/27/20 18:03 - History of Present Illness INITIAL COMMENTS - FREE TEXT/NARRATIVE: Patient arrives to ED by [facility] with report that family members witnessed the patient to have approximately 12 brief but back to back seizures after they returned home after going on a walk. Patient has a long history of seizure disorder. Patient states that he has had been compliant with his Dilantin and has had no medication changes lately. He denies pain or injury. (Cuba Hollins) - Related Data Allergies Allergy/AdvReac Type Severity Reaction Status Date / Time Penicillins Allergy Tachycardia Verified 04/27/20 18:08 tramadol Allergy Other Verified 04/27/20 18:08 Home Meds: Home Meds Acetaminophen [Tylenol Extra Strength] 1,000 mg PO Q12H 11/03/15 [History] Phenytoin Sodium Extended 300 mg PO BID #0 cap 02/11/20 [Rx] Past Medical History - Past Health History Medical/Surgical History: Denies Medical/Surgical History HEENT History: Reports: Impaired Vision Cardiovascular History: Reports: Hypertension Other Cardiovascular History: Stop taking medication 2 years ago- hypertension had resolved Respiratory History: Reports: None Gastrointestinal History: Reports: None Genitourinary History: Reports: None Musculoskeletal History: Reports: Arthritis, Back Pain, Chronic Neurological History: Reports: Seizure Other Neuro History: last seizure in when he had hemorrhoid surg Psychiatric History: Reports: None Endocrine/Metabolic History: Reports: None Hematologic History: Reports: None Immunologic History: Reports: None Oncologic (Cancer) History: Reports: None Dermatologic History: Reports: Eczema - Infectious Disease History Infectious Disease History: Reports: None - Past Surgical History Head Surgeries/Procedures: Reports: None HEENT Surgical History: Reports: Other (See Below) Other HEENT Surgeries/Procedures: teeth were surgically removed Cardiovascular Surgical History: Reports: None GI Surgical History: Reports: None <Cuba Hollins Filed: 04/27/20 18:53> Social & Family History - Family History Family Medical History: Noncontributory - Caffeine Use Caffeine Use: Reports: Soda Caffeine Use Comment: 5 cans - Living Situation & Occupation Living situation: Reports: with Family Occupation: Employed <Cuba Hollins Gold Filed: 04/27/20 18:53> ED ROS GENERAL - Review of Systems Review Of Systems: Comprehensive ROS is negative, except as noted in HPI. <Cuba Hollins Filed: 04/27/20 18:53> - Physical Exam Exam: See Below Exam Limited By: No Limitations General Appearance: Alert, WD/WN, No Apparent Distress Eye Exam: Bilateral Eye: EOMI, Normal Inspection, PERRL Ears: Normal External Exam, Normal Canal, Hearing Grossly Normal, Normal TMs Nose: Normal Inspection, Normal Mucosa, No Blood Throat/Mouth: Normal Inspection, Normal Lips, Normal Teeth, Normal Gums, Normal Oropharynx, Normal Voice, No Airway Compromise. No: Evidence of Tongue Biting Head Exam: Atraumatic, Normocephalic Neck: Normal Inspection, Supple, Non-Tender, Full Range of Motion Respiratory/Chest: No Respiratory Distress, Lungs Clear, Normal Breath Sounds, No Accessory Muscle Use, Chest Non-Tender Cardiovascular: Normal Peripheral Pulses, Regular Rate, Rhythm, No Edema, No Gallop, No JVD, No Murmur, No Rub GI/Abdominal: Normal Bowel Sounds, Soft, Non-Tender, No Organomegaly, No Distention, No Abnormal Bruit, No Mass (Male) Exam: No Hernia, Normal Inspection, Normal Prostate, Circumcised Rectal (Males) Exam: Deferred Neuro Exam (Abbreviated): Alert, Oriented, CN II-XII Intact, Normal Cognition, Normal Gait, Normal Reflexes, No Motor/Sensory Deficits Back Exam: Normal Inspection, Full Range of Motion, NT Extremities: Normal Inspection, Normal Range of Motion, Non-Tender, No Pedal Edema, Normal Capillary Refill Psychiatric: Normal Affect, Normal Mood Skin Exam: Warm, Dry, Intact, Normal Color, No Rash <Cuba Hollins Nacho - Last Filed: 04/27/20 18:53> Course <Cuba Hollins Nacho - Last Filed: 04/27/20 18:53> - Vital Signs Last Recorded V/S: Last Vital Signs Temp 37.4 C 04/27/20 18:02 Pulse 96 04/27/20 18:02 Resp 20 04/27/20 18:02 BP 123/72 04/27/20 18:02 Pulse Ox 94 L 04/27/20 18:02 - Orders/Labs/Meds Orders: Active Orders 24 hr Category Date Time Status UA W/MICROSCOPIC [URIN] Stat Lab 04/27/20 20:03 Results Seizure Precautions [OM.PC] Routine Oth 04/27/20 18:05 Ordered Labs: Laboratory Tests 04/27/20 04/27/20 04/27/20 Range/Units 18:20 18:20 18:20 WBC 8.5 (5.0-10.0) 10^3/uL RBC 4.92 (4.6-6.2) 10^6/uL Hgb 14.6 (14.0-18.0) g/dL Hct 43.7 (40.0-54.0) % MCV 88.8 (80-100) fL MCH 29.7 (27.0-34.0) pg MCHC 33.4 (33.0-35.0) g/dL Plt Count 238 (150-450) 10^3/uL Neut % (Auto) 78.3 H (42.2-75.2) % Lymph % (Auto) 12.2 L (20.5-50.1) % Blount % (Auto) 7.5 (2-8) % Eos % (Auto) 1.8 (1.0-3.0) % Baso % (Auto) 0.2 (0.0-1.0) % Sodium 139 (136-145) mmol/L Potassium 3.2 L (3.5-5.1) mmol/L Chloride 106 (98-107) mmol/L Carbon Dioxide 24 (21-32) mmol/L Anion Gap 12.2 (7-13) mEq/L BUN 14 (7-18) mg/dL Creatinine 1.02 (0.70-1.30) mg/dL Est Cr Clr Drug Dosing 103.56 mL/min Estimated GFR (MDRD) > 60 BUN/Creatinine Ratio 13.7 (No establ ref range) Glucose 101 H (74-99) mg/dL Calcium 8.4 L (8.5-10.1) mg/dL Total Bilirubin 0.2 (0.2-1.0) mg/dL AST 22 (15-37) U/L ALT 35 (16-63) U/L Alkaline Phosphatase 159 H (46-116) U/L Creatine Kinase 65 (39-308) U/L C-Reactive Protein 2.5 H (0.0-0.9) mg/dL Total Protein 7.2 (6.4-8.2) g/dL Albumin 3.7 (3.4-5.0) g/dL Globulin 3.5 Albumin/Globulin Ratio 1.1 Urine Color (YELLOW) Urine Appearance (CLEAR) Urine pH (5.0-9.0) Ur Specific Giddings (1.005-1.030) Urine Protein (NEGATIVE) Urine Glucose (UA) (NEGATIVE) Urine Ketones (NEGATIVE) Urine Occult Blood (NEGATIVE) Urine Nitrite (NEGATIVE) Urine Bilirubin (NEGATIVE) Urine Urobilinogen (0.2-1.0) mg/dL Ur Leukocyte Esterase (NEGATIVE) Urine Opiates Screen (NEGATIVE) Ur Oxycodone Screen (NEGATIVE) Urine Methadone Screen (NEGATIVE) Ur Barbiturates Screen (NEGATIVE) Phenytoin 7 L (10-20 (Therapeutic)) ug/mL U Tricyclic Antidepress (NEGATIVE) Ur Phencyclidine Scrn (NEGATIVE) Ur Amphetamine Screen (NEGATIVE) U Methamphetamines Scrn (NEGATIVE) Urine MDMA Screen (NEGATIVE) U Benzodiazepines Scrn (NEGATIVE) Urine Cocaine Screen (NEGATIVE) U Marijuana (THC) Screen (NEGATIVE) Ethyl Alcohol < 3 (0) mg/dL 04/27/20 04/27/20 Range/Units 20:03 20:03 WBC (5.0-10.0) 10^3/uL RBC (4.6-6.2) 10^6/uL Hgb (14.0-18.0) g/dL Hct (40.0-54.0) % MCV (80-100) fL MCH (27.0-34.0) pg MCHC (33.0-35.0) g/dL Plt Count (150-450) 10^3/uL Neut % (Auto) (42.2-75.2) % Lymph % (Auto) (20.5-50.1) % Blount % (Auto) (2-8) % Eos % (Auto) (1.0-3.0) % Baso % (Auto) (0.0-1.0) % Sodium (136-145) mmol/L Potassium (3.5-5.1) mmol/L Chloride (98-107) mmol/L Carbon Dioxide (21-32) mmol/L Anion Gap (7-13) mEq/L BUN (7-18) mg/dL Creatinine (0.70-1.30) mg/dL Est Cr Clr Drug Dosing mL/min Estimated GFR (MDRD) BUN/Creatinine Ratio (No establ ref range) Glucose (74-99) mg/dL Calcium (8.5-10.1) mg/dL Total Bilirubin (0.2-1.0) mg/dL AST (15-37) U/L ALT (16-63) U/L Alkaline Phosphatase (46-116) U/L Creatine Kinase (39-308) U/L C-Reactive Protein (0.0-0.9) mg/dL Total Protein (6.4-8.2) g/dL Albumin (3.4-5.0) g/dL Globulin Albumin/Globulin Ratio Urine Color Dark yellow (YELLOW) Urine Appearance Slightly cloudy (CLEAR) Urine pH 5.5 (5.0-9.0) Ur Specific Giddings >= 1.030 (1.005-1.030) Urine Protein 30 H (NEGATIVE) Urine Glucose (UA) Negative (NEGATIVE) Urine Ketones Negative (NEGATIVE) Urine Occult Blood Trace-intact H (NEGATIVE) Urine Nitrite Negative (NEGATIVE) Urine Bilirubin Small H (NEGATIVE) Urine Urobilinogen 0.2 (0.2-1.0) mg/dL Ur Leukocyte Esterase Negative (NEGATIVE) Urine Opiates Screen Negative (NEGATIVE) Ur Oxycodone Screen Negative (NEGATIVE) Urine Methadone Screen Negative (NEGATIVE) Ur Barbiturates Screen Positive H (NEGATIVE) Phenytoin (10-20 (Therapeutic)) ug/mL U Tricyclic Antidepress Negative (NEGATIVE) Ur Phencyclidine Scrn Negative (NEGATIVE) Ur Amphetamine Screen Negative (NEGATIVE) U Methamphetamines Scrn Negative (NEGATIVE) Urine MDMA Screen Negative (NEGATIVE) U Benzodiazepines Scrn Negative (NEGATIVE) Urine Cocaine Screen Negative (NEGATIVE) U Marijuana (THC) Screen Negative (NEGATIVE) Ethyl Alcohol (0) mg/dL Meds: Medications Discontinued Medications Generic Name Dose Route Start Last Admin Trade Name Skyler PRN Reason Stop Dose Admin Levetiracetam 1,500 mg/ Sodium 115 mls @ 400 mls/hr 04/27/20 18:07 04/27/20 18:19 Chloride IV 04/27/20 18:21 400 mls/hr ONETIME ONE Administration Ketorolac Tromethamine 30 mg 04/27/20 18:44 04/27/20 18:50 Toradol IVPUSH 04/27/20 18:45 30 mg ONETIME ONE Administration Potassium Chloride 40 meq 04/27/20 18:51 04/27/20 19:00 Klor-Con 10 PO 04/27/20 18:52 40 meq ONETIME ONE Administration - Re-Assessments/Exams Free Text/Narrative Re-Assessment/Exam: 04/27/20 19:00 Care of pt transferred to Fidencio THOMPSON at 1900HR shift pain with lab results pending. (Cuba Hollins) Departure <Cuba Hollins - Last Filed: 04/27/20 18:53> - Departure Time of Disposition: 20:25 Condition: Fair - Discharge Information *PRESCRIPTION DRUG MONITORING PROGRAM REVIEWED*: Not Applicable *COPY OF PRESCRIPTION DRUG MONITORING REPORT IN PATIENT MARCY: Not Applicable <Fidencio Mekes - Last Filed: 04/27/20 20:28> - Departure Disposition: Home, Self-Care 01 Clinical Impression: Seizure disorder - Discharge Information Instructions: Seizure, Adult, [id number] Forms: ED Department Discharge Care Plan Goals: The patient was advised of the examination and lab results during the visit. The patient was given an IV dose of Keppra while in the ED. The patient was encouraged to take his medications as directed. The patient should contact his neurologist to report the increased seizure activity. The patient was encouraged to get plenty of rest. If the patient has any additional symptoms or concerns, the patient should either return to the emergency department or visit his primary care facility. Sepsis Event Note (ED) - Focused Exam Vital Signs: Vital Signs Temp Pulse Resp BP Pulse Ox 04/27/20 18:02 37.4 C 96 20 123/72 94 L I have read and agree with the documentation that has been completed regarding this visit. By signing this record, I attest that the documentation was completed in my physical presence and is an accurate record of the encounter.
[2020-04-27] MEDS ORDERED: Potassium Chloride 10 MEQ Tab.ER PO ONE (18:51)
== END 2020-04-27 20:36 | disposition home or self-care (01) ==
LOC: DL.ED 18:02
DX: G40.909 Epilepsy, unspecified, not intractable, without status epilepticus (principal); Z88.0 Allergy status to penicillin; Z88.5 Allergy status to narcotic agent
CPT/HCPCS: 36415; 80053; 80185; 80305; 80307; 81001; 82550; 85025; 86140; 87086; 96365; 96375; 99284; A9270; J1885; J1953; J7050

== ENCOUNTER 2020-05-21 10:13 | Emergency (ER) | payer MEDICAID ==
[2020-05-21 10:18] VITALS: BP 118/81; PULSE 68
[2020-05-21 11:27] LABS: ANION GAP 12.9 mEq/L (7-13); CHLORIDE,CL 105 mmol/L (98-107); SODIUM,NA 140 mmol/L (136-145)
--- NOTE | 2020-05-21 12:32 | EDM.PDOC ---
ED HPI GENERAL MEDICAL PROBLEM - General Chief Complaint: Chest Pain Stated Complaint: AMBULANCE Time Seen by Provider: 05/21/20 10:33 Source of Information: Reports: Patient, EMS, EMS Notes Reviewed, RN, RN Notes Reviewed History Limitations: Reports: No Limitations - History of Present Illness INITIAL COMMENTS - FREE TEXT/NARRATIVE: Patient presents to ER per [facility] with complaint of shortness of breath. States he woke up about 815 this morning having shortness of breath and a sharp pain in the left anterior chest. Patient states it moves to the midsternal area. States radiates to the left arm from time to time. Patient denies anxiety. Denies heart problems or diabetes. Patient states he only has a seizure disorder, takes Dilantin. States last seizure was 2-1/2 weeks ago. No recent falls or injuries. Patient states oxygen in the ambulance helped with the pain. Also states he had pneumonia couple years ago. Rates chest pain 5 on 10, which varies. Admits to cough, subjective fever, shortness of breath, chest pain which comes and goes. Denies nausea, vomiting, diarrhea, chills. No known exposure to COVID-19. 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 Left Chest Pain Score (Numeric/FACES): 5 - Related Data Allergies Allergy/AdvReac Type Severity Reaction Status Date / Time Penicillins Allergy Tachycardia Verified 04/27/20 18:08 tramadol Allergy Other Verified 04/27/20 18:08 Home Meds: Home Meds Acetaminophen [Tylenol Extra Strength] 1,000 mg PO Q12H 11/03/15 [History] Phenytoin Sodium Extended 300 mg PO BID #0 cap 02/11/20 [Rx] Past Medical History - Past Health History Medical/Surgical History: Denies Medical/Surgical History HEENT History: Reports: Impaired Vision Cardiovascular History: Reports: Hypertension Other Cardiovascular History: Stop taking medication 2 years ago- hypertension had resolved Respiratory History: Reports: None Gastrointestinal History: Reports: None Genitourinary History: Reports: None Musculoskeletal History: Reports: Arthritis, Back Pain, Chronic Neurological History: Reports: Seizure Other Neuro History: last seizure in when he had hemorrhoid surg Psychiatric History: Reports: None Endocrine/Metabolic History: Reports: None Hematologic History: Reports: None Immunologic History: Reports: None Oncologic (Cancer) History: Reports: None Dermatologic History: Reports: Eczema - Infectious Disease History Infectious Disease History: Reports: None - Past Surgical History Head Surgeries/Procedures: Reports: None HEENT Surgical History: Reports: Other (See Below) Other HEENT Surgeries/Procedures: teeth were surgically removed Cardiovascular Surgical History: Reports: None GI Surgical History: Reports: None Social & Family History - Family History Family Medical History: Noncontributory - Tobacco Use Smoking Status *Q: Current Every Day Smoker Years of Tobacco use: 9 Packs/Tins Daily: 1 Second Hand Smoke Exposure: Yes - Caffeine Use Caffeine Use: Reports: Soda Caffeine Use Comment: 5 cans - Recreational Drug Use Recreational Drug Use: No - Living Situation & Occupation Living situation: Reports: with Family Occupation: Employed ED ROS GENERAL - Review of Systems Review Of Systems: Comprehensive ROS is negative, except as noted in HPI. ED EXAM, GENERAL - Physical Exam Exam: See Below Exam Limited By: No Limitations General Appearance: Alert, WD/WN, No Apparent Distress Eye Exam: Bilateral Eye: EOMI, Normal Inspection Ears: Normal External Exam, Hearing Grossly Normal Nose: Normal Inspection Throat/Mouth: Normal Inspection, Normal Voice, No Airway Compromise Head: Atraumatic, Normocephalic Neck: Normal Inspection, Supple, Non-Tender, Full Range of Motion Respiratory/Chest: No Respiratory Distress, Lungs Clear, Normal Breath Sounds, No Accessory Muscle Use, Chest Non-Tender Cardiovascular: Normal Peripheral Pulses, Regular Rate, Rhythm, No Edema, No Gallop, No JVD, No Murmur, No Rub Peripheral Pulses: 2+: Radial (L), Radial (R) GI/Abdominal: Normal Bowel Sounds, Soft, Non-Tender (Male) Exam: Deferred Rectal (Males) Exam: Deferred Back Exam: Normal Inspection, Full Range of Motion, NT Extremities: Normal Inspection, Normal Range of Motion, Non-Tender, Normal Capillary Refill, No Pedal Edema Neurological: Alert, Oriented, CN II-XII Intact, Normal Cognition, Normal Gait, Normal Reflexes, No Motor/Sensory Deficits Psychiatric: Normal Affect, Normal Mood Skin Exam: Warm, Dry, Intact, Normal Color, No Rash Lymphatic: No Adenopathy Course - Vital Signs Last Recorded V/S: Last Vital Signs Temp 98.4 F 05/21/20 10:13 Pulse 68 05/21/20 10:13 Resp 18 05/21/20 10:13 BP 118/81 05/21/20 10:13 Pulse Ox 96 05/21/20 10:13 - Orders/Labs/Meds Orders: Active Orders 24 hr Category Date Time Status EKG Documentation Completion [RC] STAT Care 05/21/20 10:22 Active Labs: Laboratory Tests 05/21/20 05/21/20 Range/Units 10:36 10:36 WBC 6.8 (5.0-10.0) 10^3/uL RBC 4.90 (4.6-6.2) 10^6/uL Hgb 14.6 (14.0-18.0) g/dL Hct 43.9 (40.0-54.0) % MCV 89.6 (80-100) fL MCH 29.8 (27.0-34.0) pg MCHC 33.3 (33.0-35.0) g/dL Plt Count 215 (150-450) 10^3/uL Neut % (Auto) 66.0 (42.2-75.2) % Lymph % (Auto) 17.6 L (20.5-50.1) % [place] % (Auto) 10.7 H (2-8) % Eos % (Auto) 5.6 H (1.0-3.0) % Baso % (Auto) 0.1 (0.0-1.0) % Sodium 140 (136-145) mmol/L Potassium 3.9 (3.5-5.1) mmol/L Chloride 105 (98-107) mmol/L Carbon Dioxide 26 (21-32) mmol/L Anion Gap 12.9 (7-13) mEq/L BUN 13 (7-18) mg/dL Creatinine 0.73 (0.70-1.30) mg/dL Est Cr Clr Drug Dosing 144.70 mL/min Estimated GFR (MDRD) > 60 BUN/Creatinine Ratio 17.8 (No establ ref range) Glucose 93 (74-99) mg/dL Calcium 7.7 L (8.5-10.1) mg/dL Total Bilirubin 0.3 (0.2-1.0) mg/dL AST 23 (15-37) U/L ALT 35 (16-63) U/L Alkaline Phosphatase 126 H (46-116) U/L Troponin I < 0.017 (0.000-0.056) ng/mL B-Natriuretic Peptide 10 (0-100) pg/ml Total Protein 6.4 (6.4-8.2) g/dL Albumin 3.1 L (3.4-5.0) g/dL Globulin 3.3 Albumin/Globulin Ratio 0.94 - Radiology Interpretation Free Text/Narrative:: Chest xray: No acute new cardiopulmonary abnormality See rad report - Re-Assessments/Exams Free Text/Narrative Re-Assessment/Exam: 05/21/20 12:29 Patient states pain is improved at this time. Departure - Departure Time of Disposition: 12:30 Disposition: Home, Self-Care 01 Reason for Transfer *Q: Other Condition: Good Clinical Impression: Anxiety Chest pain Qualifiers: Chest pain type: unspecified Qualified Code(s): R07.9 - Chest pain, unspecified Instructions: Nonspecific Chest Pain, Adult, [id number] Referrals: Flor Bear MD [Primary Care Provider] - Forms: ED Department Discharge Additional Instructions: Rest Follow-up with your primary care provider Return to the ER with any worsening of symptoms Sepsis Event Note (ED) - Evaluation Sepsis Screening Result: No Definite Risk - Focused Exam Vital Signs: Vital Signs Temp Pulse Resp BP Pulse Ox 05/21/20 10:13 98.4 F 68 18 118/81 96 - My Orders Last 24 Hours: My Active Orders 05/21/20 10:22 EKG Documentation Completion [RC] STAT - Assessment/Plan Last 24 Hours: My Active Orders 05/21/20 10:22 EKG Documentation Completion [RC] STAT
--- NOTE | 2020-05-21 12:39 | CR ---
EXAMINATION: Chest 2V SEX: Male AGE: 39 years CLINICAL HISTORY: 39-year-old obese male with CHEST PAIN and history of "pneumonia". Comparison chest exam, CXR 10 February 2020. Interpretation: No acute new cardiopulmonary abnormality. Normal cardiac size and configuration. (External nurse monitoring leads) No new pulmonary vascular congestion, cephalization of flow, alveolar edema or dependent pleural effusion. No new lung mass, hilar lymphadenopathy or focal lobar pneumonia. No atelectasis/collapse. No pneumothorax or pneumomediastinum.
== END 2020-05-21 12:35 | disposition home or self-care (01) ==
LOC: DL.ED 10:13
DX: F41.9 Anxiety disorder, unspecified (principal); I10 Essential (primary) hypertension; R56.9 Unspecified convulsions; F17.210 Nicotine dependence, cigarettes, uncomplicated; Z79.899 Other long term (current) drug therapy; Z88.0 Allergy status to penicillin; Z88.5 Allergy status to narcotic agent
CPT/HCPCS: 36415; 71046; 80053; 83880; 84484; 85025; 93005; 99285-25

== ENCOUNTER 2020-06-25 04:58 | Emergency (ER) | payer MEDICAID, OTHER ==
[2020-06-25 05:39] LABS: ANION GAP 12.3 mEq/L (7-13); CHLORIDE,CL 107 mmol/L (98-107); SODIUM,NA 142 mmol/L (136-145)
--- NOTE | 2020-06-25 05:41 | EDM.PDOC ---
ED HPI GENERAL MEDICAL PROBLEM - General Chief Complaint: Chest Pain Stated Complaint: AMBULANCE Time Seen by Provider: 06/25/20 05:39 Source of Information: Reports: Patient History Limitations: Reports: No Limitations - History of Present Illness INITIAL COMMENTS - FREE TEXT/NARRATIVE: woke up with CP got ASA and NTG en route and now fine. had similar last month from anxiety - Related Data Allergies Allergy/AdvReac Type Severity Reaction Status Date / Time Penicillins Allergy Tachycardia Verified 04/27/20 18:08 tramadol Allergy Other Verified 04/27/20 18:08 Home Meds: Home Meds Acetaminophen [Tylenol Extra Strength] 1,000 mg PO Q12H 11/03/15 [History] Phenytoin Sodium Extended 300 mg PO BID #0 cap 02/11/20 [Rx] Past Medical History - Past Health History Medical/Surgical History: Denies Medical/Surgical History HEENT History: Reports: Impaired Vision Cardiovascular History: Reports: Hypertension Other Cardiovascular History: Stop taking medication 2 years ago- hypertension had resolved Respiratory History: Reports: None Gastrointestinal History: Reports: None Genitourinary History: Reports: None Musculoskeletal History: Reports: Arthritis, Back Pain, Chronic Neurological History: Reports: Seizure Other Neuro History: last seizure in when he had hemorrhoid surg Psychiatric History: Reports: None Endocrine/Metabolic History: Reports: None Hematologic History: Reports: None Immunologic History: Reports: None Oncologic (Cancer) History: Reports: None Dermatologic History: Reports: Eczema - Infectious Disease History Infectious Disease History: Reports: None - Past Surgical History Head Surgeries/Procedures: Reports: None HEENT Surgical History: Reports: Other (See Below) Other HEENT Surgeries/Procedures: teeth were surgically removed Cardiovascular Surgical History: Reports: None GI Surgical History: Reports: None Social & Family History - Family History Family Medical History: Noncontributory - Caffeine Use Caffeine Use: Reports: Soda Caffeine Use Comment: 5 cans - Living Situation & Occupation Living situation: Reports: with Family Occupation: Employed ED ROS GENERAL - Review of Systems Review Of Systems: Comprehensive ROS is negative, except as noted in HPI. ED EXAM, GENERAL - Physical Exam Exam: See Below Exam Limited By: No Limitations General Appearance: Alert, WD/WN, Anxious, Mild Distress Ears: Hearing Grossly Normal Throat/Mouth: Normal Voice, No Airway Compromise Head: Atraumatic Neck: Non-Tender, Full Range of Motion Respiratory/Chest: No Respiratory Distress Cardiovascular: Regular Rate, Rhythm GI/Abdominal: Soft, Non-Tender Neurological: Alert, Oriented, Normal Cognition, No Motor/Sensory Deficits Psychiatric: Anxious Skin Exam: Warm, Dry, Normal Color Lymphatic: No Adenopathy Course - Vital Signs Last Recorded V/S: Last Vital Signs Temp 36.9 C 06/25/20 05:37 Pulse 70 06/25/20 05:37 Resp 17 06/25/20 05:37 BP 111/74 06/25/20 05:37 Pulse Ox 98 06/25/20 05:37 - Orders/Labs/Meds Labs: Laboratory Tests 06/25/20 06/25/20 Range/Units 05:13 05:13 WBC 7.2 (5.0-10.0) 10^3/uL RBC 4.94 (4.6-6.2) 10^6/uL Hgb 14.8 (14.0-18.0) g/dL Hct 44.5 (40.0-54.0) % MCV 90.1 (80-100) fL MCH 30.0 (27.0-34.0) pg MCHC 33.3 (33.0-35.0) g/dL Plt Count 232 (150-450) 10^3/uL Neut % (Auto) 53.7 (42.2-75.2) % Lymph % (Auto) 28.1 (20.5-50.1) % Davie % (Auto) 10.0 H (2-8) % Eos % (Auto) 7.9 H (1.0-3.0) % Baso % (Auto) 0.3 (0.0-1.0) % Sodium 142 (136-145) mmol/L Potassium 4.3 (3.5-5.1) mmol/L Chloride 107 (98-107) mmol/L Carbon Dioxide 27 (21-32) mmol/L Anion Gap 12.3 (7-13) mEq/L BUN 13 (7-18) mg/dL Creatinine 0.84 (0.70-1.30) mg/dL Est Cr Clr Drug Dosing TNP Estimated GFR (MDRD) > 60 BUN/Creatinine Ratio 15.5 (No establ ref range) Glucose 99 (74-99) mg/dL Calcium 8.1 L (8.5-10.1) mg/dL Total Bilirubin 0.2 (0.2-1.0) mg/dL AST 17 (15-37) U/L ALT 29 (16-63) U/L Alkaline Phosphatase 150 H (46-116) U/L Troponin I < 0.017 (0.000-0.056) ng/mL Total Protein 6.9 (6.4-8.2) g/dL Albumin 3.4 (3.4-5.0) g/dL Globulin 3.5 Albumin/Globulin Ratio 1.0 Meds: Medications Discontinued Medications Generic Name Dose Route Start Last Admin Trade Name Freq PRN Reason Stop Dose Admin Lorazepam 0.5 mg 06/25/20 05:47 06/25/20 05:55 Ativan PO 06/25/20 05:48 0.5 mg ONETIME ONE Administration - Re-Assessments/Exams Free Text/Narrative Re-Assessment/Exam: 06/25/20 05:48 results discussed with pt who states would like something to clam him. Departure - Departure Time of Disposition: 06:00 Disposition: Home, Self-Care 01 Condition: Good Clinical Impression: Anxiety Chest wall muscle strain Qualifiers: Encounter type: initial encounter Qualified Code(s): S29.011A - Strain of muscle and tendon of front wall of thorax, initial encounter Instructions: Nonspecific Chest Pain, Adult, [id number] Referrals: PCP,None [Primary Care Provider] - Forms: ED Department Discharge Additional Instructions: 1) avoid bending lifting straining 2) try heat to sore areas 3) follow up at clinic Sepsis Event Note (ED) - Focused Exam Vital Signs: Vital Signs Temp Pulse Resp BP Pulse Ox 06/25/20 05:37 36.9 C 70 17 111/74 98
[2020-06-25 05:43] VITALS: BP 111/74; PULSE 70
[2020-06-25] MEDS ORDERED: LORazepam 0.5 MG Tab PO ONE (05:47)
== END 2020-06-25 06:00 | disposition home or self-care (01) ==
LOC: DL.ED 04:58
DX: S29.011A Strain of muscle and tendon of front wall of thorax, initial encounter (principal); F41.9 Anxiety disorder, unspecified; I10 Essential (primary) hypertension; Z88.0 Allergy status to penicillin; Z88.6 Allergy status to analgesic agent; X58.XXXA Exposure to other specified factors, initial encounter
CPT/HCPCS: 36415; 80053; 84484; 85025; 93005; 99285; A9270; 99283

== ENCOUNTER 2020-08-02 11:37 | Emergency (ER) | payer MEDICAID, OTHER ==
[2020-08-02] MEDS ORDERED: Aspirin 81 MG Tab.Chew PO ONE (11:40)
[2020-08-02] MEDS ORDERED: Nitroglycerin 0.4 MG Tab.SL SL PRN (11:40)
--- NOTE | 2020-08-02 11:40 | EDM.PDOC ---
ED HPI GENERAL MEDICAL PROBLEM - General Chief Complaint: Chest Pain Stated Complaint: CHEST PAIN Time Seen by Provider: 08/02/20 11:40 Source of Information: Reports: Patient, Old Records, Provider (Dr. Bear), RN, RN Notes Reviewed History Limitations: Reports: No Limitations - History of Present Illness INITIAL COMMENTS - FREE TEXT/NARRATIVE: Pt sent from clinic by Dr. Bear with c/o chest pain. Pt actually indicates left flank pain that radiates around to the left anterior and and left abdomen. He states the pain began last night, and is very sharp and aching. He describes that the pain waxes and wanes in intensity. Nothing seems to aggravate or alleviate the pain. Denies substernal chest pain, shortness of breath, palpitations, lightheadedness, or edema. He admits to left arm tingling and left hand numbness but that isn't new and he isn't sure that it is associated with the pain or not. He denies any fever, cough, or COVID exposure. He states he was evaluated by a hat maker but isn't sure why. He is scheduled for a cardiac stress test next week. Onset: Gradual Onset Date: 08/01/20 Duration: Waxing/Waning Location: Reports: Other (Left flank) Quality: Reports: Ache Severity: Severe Improves with: Reports: None Worsens with: Reports: None Associated Symptoms: Reports: No Other Symptoms - Related Data Allergies Allergy/AdvReac Type Severity Reaction Status Date / Time Penicillins Allergy Tachycardia Verified 08/02/20 12:06 tramadol Allergy Other Verified 08/02/20 12:06 Home Meds: Home Meds Acetaminophen [Tylenol Extra Strength] 1,000 mg PO Q12H 11/03/15 [History] Phenytoin Sodium Extended 300 mg PO BID #0 cap 02/11/20 [Rx] Nitroglycerin [Nitrostat] 0.4 mg SL ASDIRECTED PRN 08/02/20 [History] Past Medical History - Past Health History Medical/Surgical History: Denies Medical/Surgical History HEENT History: Reports: Impaired Vision Cardiovascular History: Reports: Hypertension Other Cardiovascular History: Stop taking medication 2 years ago- hypertension had resolved Respiratory History: Reports: None Gastrointestinal History: Reports: None Genitourinary History: Reports: None Musculoskeletal History: Reports: Arthritis, Back Pain, Chronic Neurological History: Reports: Seizure Other Neuro History: last seizure in when he had hemorrhoid surg Psychiatric History: Reports: None Endocrine/Metabolic History: Reports: None Hematologic History: Reports: None Immunologic History: Reports: None Oncologic (Cancer) History: Reports: None Dermatologic History: Reports: Eczema - Infectious Disease History Infectious Disease History: Reports: None - Past Surgical History Head Surgeries/Procedures: Reports: None HEENT Surgical History: Reports: Other (See Below) Other HEENT Surgeries/Procedures: teeth were surgically removed Cardiovascular Surgical History: Reports: None GI Surgical History: Reports: None Social & Family History - Family History Family Medical History: Noncontributory - Caffeine Use Caffeine Use: Reports: Soda Caffeine Use Comment: 5 cans - Living Situation & Occupation Living situation: Reports: with Family Occupation: Employed ED ROS GENERAL - Review of Systems Review Of Systems: Comprehensive ROS is negative, except as noted in HPI. ED EXAM, GENERAL - Physical Exam Exam: See Below Exam Limited By: No Limitations General Appearance: Alert, WD/WN, No Apparent Distress, Obese Eye Exam: Bilateral Eye: Normal Inspection Nose: Normal Inspection Throat/Mouth: Normal Inspection, Normal Lips, Normal Voice, No Airway Compromise Head: Atraumatic, Normocephalic Neck: Normal Inspection, Supple, Non-Tender, Full Range of Motion Respiratory/Chest: No Respiratory Distress, Lungs Clear, Normal Breath Sounds, No Accessory Muscle Use, Chest Non-Tender Cardiovascular: Normal Peripheral Pulses, Regular Rate, Rhythm, No Edema, No Gallop, No JVD, No Murmur, No Rub GI/Abdominal: Normal Bowel Sounds, Soft, Non-Tender, Other (Benign obese abdomen) (Male) Exam: Deferred Rectal (Males) Exam: Deferred Back Exam: CVA Tenderness (L), Paraspinal Tenderness (L>R). No: CVA Tenderness (R), Vertebral Tenderness Extremities: Normal Inspection, Normal Range of Motion, Non-Tender, Normal Capillary Refill, No Pedal Edema Neurological: Alert, Oriented, CN II-XII Intact, Normal Cognition, Normal Gait, No Motor/Sensory Deficits Psychiatric: Normal Affect, Normal Mood Skin Exam: Warm, Dry, Intact, Normal Color, No Rash EKG INTERPRETATION EKG Date: 08/02/20 Time: 11:46 Rhythm: NSR Rate (Beats/Min): 61 [place]: Normal P-Wave: Present QRS: Normal ST-T: Normal QT: Normal Comparison: NA - No Prior EKG Course - Vital Signs Last Recorded V/S: Last Vital Signs Temp 98.6 F 08/02/20 11:40 Pulse 75 08/02/20 11:40 Resp 18 08/02/20 11:40 BP 110/77 08/02/20 12:24 Pulse Ox 97 08/02/20 11:40 - Orders/Labs/Meds Orders: Active Orders 24 hr Category Date Time Status EKG 12 Lead [EKG Documentation Completion] [RC] STAT Care 08/02/20 11:41 Active Peripheral IV Care [RC] . DIRECTED Care 08/02/20 11:41 Active CHLAMYDIA AND GONORRHEA BY TMA Routine Lab 08/02/20 12:43 Received CULTURE URINE [] Stat Lab 08/02/20 12:43 Received Nitroglycerin [Nitrostat] Med 08/02/20 11:40 Active 0.4 mg SL Q5M PRN Sodium Chloride 0.9% [Saline Flush] Med 08/02/20 11:41 Active 10 ml FLUSH ASDIRECTED PRN cefTRIAXone [Rocephin] 1 gm Med 08/02/20 14:01 Active Sodium Chloride 0.9% [Normal Saline] 50 ml IV ONETIME Peripheral IV Insertion Adult [OM.PC] Stat Oth 08/02/20 11:41 Ordered Medication Orders Ceftriaxone Sodium 1 gm/ (Sodium Chloride) 50 mls @ 100 mls/hr IV ONETIME ONE Stop: 08/02/20 14:30 Nitroglycerin (Nitrostat) 0.4 mg SL Q5M PRN PRN Reason: Chest Pain Last Admin: 08/02/20 12:24 Dose: 0.4 mg Documented by: SWEETIE Sodium Chloride (Saline Flush) 10 ml FLUSH ASDIRECTED PRN PRN Reason: Keep Vein Open Last Admin: 08/02/20 12:20 Dose: 10 ml Documented by: SWEETIE Labs: Laboratory Tests 08/02/20 08/02/20 08/02/20 Range/Units 11:56 11:56 11:56 WBC 7.2 (5.0-10.0) 10^3/uL RBC 4.82 (4.6-6.2) 10^6/uL Hgb 14.3 (14.0-18.0) g/dL Hct 43.5 (40.0-54.0) % MCV 90.2 (80-100) fL MCH 29.7 (27.0-34.0) pg MCHC 32.9 L (33.0-35.0) g/dL Plt Count 219 (150-450) 10^3/uL Neut % (Auto) 62.5 (42.2-75.2) % Lymph % (Auto) 22.5 (20.5-50.1) % [place] % (Auto) 9.4 H (2-8) % Eos % (Auto) 5.5 H (1.0-3.0) % Baso % (Auto) 0.1 (0.0-1.0) % PT 10.1 (9.0-12.0) SEC INR 1.1 (0.9-1.2) APTT 26.7 (22.0-34.0) SEC D-Dimer, Quantitative < 100 (0-400) ng/mL Sodium 140 (136-145) mmol/L Potassium 4.3 (3.5-5.1) mmol/L Chloride 105 (98-107) mmol/L Carbon Dioxide 28 (21-32) mmol/L Anion Gap 11.3 (7-13) mEq/L BUN 11 (7-18) mg/dL Creatinine 0.77 (0.70-1.30) mg/dL Est Cr Clr Drug Dosing 135.82 mL/min Estimated GFR (MDRD) > 60 BUN/Creatinine Ratio 14.3 (No establ ref range) Glucose 92 (74-99) mg/dL Calcium 8.5 (8.5-10.1) mg/dL Total Bilirubin 0.3 (0.2-1.0) mg/dL AST 15 (15-37) U/L ALT 29 (16-63) U/L Alkaline Phosphatase 173 H (46-116) U/L Troponin I < 0.017 (0.000-0.056) ng/mL Total Protein 7.3 (6.4-8.2) g/dL Albumin 3.5 (3.4-5.0) g/dL Globulin 3.8 Albumin/Globulin Ratio 0.9 Amylase 43 (25-115) U/L Lipase 67 L (73-393) U/L Urine Color (YELLOW) Urine Appearance (CLEAR) Urine pH (5.0-9.0) Ur Specific [place] (1.005-1.030) Urine Protein (NEGATIVE) Urine Glucose (UA) (NEGATIVE) Urine Ketones (NEGATIVE) Urine Occult Blood (NEGATIVE) Urine Nitrite (NEGATIVE) Urine Bilirubin (NEGATIVE) Urine Urobilinogen (0.2-1.0) mg/dL Ur Leukocyte Esterase (NEGATIVE) Urine RBC /HPF Urine WBC (0-5/HPF) /HPF Ur Epithelial Cells (NOT SEEN) /HPF Urine Bacteria (0-FEW/HPF) /HPF Urine Trichomonas (NOT SEEN) /HPF Urine Opiates Screen (NEGATIVE) Ur Oxycodone Screen (NEGATIVE) Urine Methadone Screen (NEGATIVE) Ur Barbiturates Screen (NEGATIVE) U Tricyclic Antidepress (NEGATIVE) Ur Phencyclidine Scrn (NEGATIVE) Ur Amphetamine Screen (NEGATIVE) U Methamphetamines Scrn (NEGATIVE) Urine MDMA Screen (NEGATIVE) U Benzodiazepines Scrn (NEGATIVE) Urine Cocaine Screen (NEGATIVE) U Marijuana (THC) Screen (NEGATIVE) 08/02/20 08/02/20 Range/Units 12:43 12:43 WBC (5.0-10.0) 10^3/uL RBC (4.6-6.2) 10^6/uL Hgb (14.0-18.0) g/dL Hct (40.0-54.0) % MCV (80-100) fL MCH (27.0-34.0) pg MCHC (33.0-35.0) g/dL Plt Count (150-450) 10^3/uL Neut % (Auto) (42.2-75.2) % Lymph % (Auto) (20.5-50.1) % [place] % (Auto) (2-8) % Eos % (Auto) (1.0-3.0) % Baso % (Auto) (0.0-1.0) % PT (9.0-12.0) SEC INR (0.9-1.2) APTT (22.0-34.0) SEC D-Dimer, Quantitative (0-400) ng/mL Sodium (136-145) mmol/L Potassium (3.5-5.1) mmol/L Chloride (98-107) mmol/L Carbon Dioxide (21-32) mmol/L Anion Gap (7-13) mEq/L BUN (7-18) mg/dL Creatinine (0.70-1.30) mg/dL Est Cr Clr Drug Dosing mL/min Estimated GFR (MDRD) BUN/Creatinine Ratio (No establ ref range) Glucose (74-99) mg/dL Calcium (8.5-10.1) mg/dL Total Bilirubin (0.2-1.0) mg/dL AST (15-37) U/L ALT (16-63) U/L Alkaline Phosphatase (46-116) U/L Troponin I (0.000-0.056) ng/mL Total Protein (6.4-8.2) g/dL Albumin (3.4-5.0) g/dL Globulin Albumin/Globulin Ratio Amylase (25-115) U/L Lipase (73-393) U/L Urine Color Yellow (YELLOW) Urine Appearance Clear (CLEAR) Urine pH 7.0 (5.0-9.0) Ur Specific [place] 1.020 (1.005-1.030) Urine Protein Negative (NEGATIVE) Urine Glucose (UA) Negative (NEGATIVE) Urine Ketones Negative (NEGATIVE) Urine Occult Blood Trace-intact H (NEGATIVE) Urine Nitrite Negative (NEGATIVE) Urine Bilirubin Negative (NEGATIVE) Urine Urobilinogen 0.2 (0.2-1.0) mg/dL Ur Leukocyte Esterase Negative (NEGATIVE) Urine RBC 0-5 /HPF Urine WBC 0-5 (0-5/HPF) /HPF Ur Epithelial Cells Few (NOT SEEN) /HPF Urine Bacteria Few (0-FEW/HPF) /HPF Urine Trichomonas Present H (NOT SEEN) /HPF Urine Opiates Screen Negative (NEGATIVE) Ur Oxycodone Screen Negative (NEGATIVE) Urine Methadone Screen Negative (NEGATIVE) Ur Barbiturates Screen Positive H (NEGATIVE) U Tricyclic Antidepress Negative (NEGATIVE) Ur Phencyclidine Scrn Negative (NEGATIVE) Ur Amphetamine Screen Negative (NEGATIVE) U Methamphetamines Scrn Negative (NEGATIVE) Urine MDMA Screen Negative (NEGATIVE) U Benzodiazepines Scrn Negative (NEGATIVE) Urine Cocaine Screen Negative (NEGATIVE) U Marijuana (THC) Screen Negative (NEGATIVE) Meds: Medications Generic Name Dose Route Start Last Admin Trade Name Freq PRN Reason Stop Dose Admin Ceftriaxone Sodium 1 gm/ 50 mls @ 100 mls/hr 08/02/20 14:01 Sodium Chloride IV 08/02/20 14:30 ONETIME ONE Nitroglycerin 0.4 mg 08/02/20 11:40 08/02/20 12:24 Nitrostat SL 0.4 mg Q5M PRN Administration Chest Pain Sodium Chloride 10 ml 08/02/20 11:41 08/02/20 12:20 Saline Flush FLUSH 10 ml ASDIRECTED PRN Administration Keep Vein Open Discontinued Medications Generic Name Dose Route Start Last Admin Trade Name Freq PRN Reason Stop Dose Admin Aspirin 324 mg 08/02/20 11:40 08/02/20 11:53 Aspirin PO 08/02/20 11:41 324 mg ONETIME ONE Administration Azithromycin 1,000 mg 08/02/20 14:00 Zithromax PO 08/02/20 14:01 ONETIME ONE Diphenhydramine HCl 25 mg 08/02/20 14:02 Benadryl IVPUSH 08/02/20 14:03 ONETIME ONE Ketorolac Tromethamine 30 mg 08/02/20 12:44 08/02/20 14:05 Toradol IVPUSH 08/02/20 12:45 30 mg ONETIME ONE Administration Metronidazole 2,000 mg 08/02/20 14:01 Metronidazole PO 08/02/20 14:02 ONETIME ONE Morphine Sulfate 4 mg 08/02/20 12:45 08/02/20 14:01 Morphine IVPUSH 08/02/20 12:46 4 mg ONETIME ONE Administration Ondansetron HCl 4 mg 08/02/20 12:45 08/02/20 13:58 Zofran IV 08/02/20 12:46 4 mg ONETIME ONE Administration - Radiology Interpretation Free Text/Narrative:: CXR: no acute process per Rad. report. CT Abd/Pelvis: subtle change upper pole cortex, left kidney suggesting infection, otherwise no acute findings per Rad. report. - Re-Assessments/Exams Free Text/Narrative Re-Assessment/Exam: 08/02/20 14:12 Pt's presenting symptoms were focal to left flank pain, and it turns out chest pain was issue. He was treated for trich. and STD prophylaxis with Rocephin and Zithromax. He was discharged on Cipro 500mg BID x10 days and 2 days worth of [place] 5mg/325mg with instruction to f/u in clinic in the next [address] Bear for recheck and further evaluation of the left kidney with US or MRI and referral to urology if needed. Departure - Departure Time of Disposition: 14:19 Disposition: Home, Self-Care 01 Condition: Good Clinical Impression: Acute left flank pain, Atypical chest pain, Trichomoniasis, urogenital Instructions: Nonspecific Chest Pain, Adult, Trichomoniasis, Flank Pain, Adult Forms: ED Department Discharge Additional Instructions: Rx: Cipro 500mg Rx: [place] 5mg/325mg Follow up in clinic with Dr. Bear within the next 2 days for recheck and further evaluation of the left kidney with ultrasound or MRI, and referral urology if needed. Inform you sexual partner(s) of your diagnosis so that they may be tested and/or treated in their primary clinic or at the health department. Follow up with cardiology for stress test as planned. Sepsis Event Note (ED) - Focused Exam Vital Signs: Vital Signs Temp Pulse Resp BP BP Pulse Ox 08/02/20 12:24 110/77 08/02/20 11:40 98.6 F 75 18 125/80 97 - My Orders Last 24 Hours: My Active Orders 08/02/20 11:40 Nitroglycerin [Nitrostat] 0.4 mg SL Q5M PRN 08/02/20 11:41 EKG 12 Lead [EKG Documentation Completion] [RC] STAT Peripheral IV Care [RC] . DIRECTED Sodium Chloride 0.9% [Saline Flush] 10 ml FLUSH ASDIRECTED PRN Peripheral IV Insertion Adult [OM.PC] Stat 08/02/20 12:43 CHLAMYDIA AND GONORRHEA BY TMA Routine CULTURE URINE [RM] Stat 08/02/20 14:01 cefTRIAXone [Rocephin] 1 gm Sodium Chloride 0.9% [Normal Saline] 50 ml IV ONETIME - Assessment/Plan Last 24 Hours: My Active Orders 08/02/20 11:40 Nitroglycerin [Nitrostat] 0.4 mg SL Q5M PRN 08/02/20 11:41 EKG 12 Lead [EKG Documentation Completion] [RC] STAT Peripheral IV Care [RC] . DIRECTED Sodium Chloride 0.9% [Saline Flush] 10 ml FLUSH ASDIRECTED PRN Peripheral IV Insertion Adult [OM.PC] Stat 08/02/20 12:43 CHLAMYDIA AND GONORRHEA BY TMA Routine CULTURE URINE [RM] Stat 08/02/20 14:01 cefTRIAXone [Rocephin] 1 gm Sodium Chloride 0.9% [Normal Saline] 50 ml IV ONETIME
[2020-08-02] MEDS ORDERED: Sodium Chloride 0.9% 10 ML Syringe FLUSH PRN (11:41)
[2020-08-02 12:06] VITALS: PULSE 75
--- NOTE | 2020-08-02 12:14 | CR ---
EXAMINATION: Chest 1V Frontal SEX: Male AGE: 40 years CLINICAL HISTORY: 40-year-old obese male with chest pain. Interpretation (upright AP portable chest): No acute new cardiopulmonary abnormality identified in the interval since 21 May 2020 comparison. Less than optimal inspiratory effort crowding and accentuating the bronchovascular markings. Normal cardiac silhouette. No pulmonary vascular congestion, cephalization of flow, alveolar edema or dependent pleural fluid accumulation (effusion). No new lung mass, hilar lymphadenopathy or focal lobar infiltrate/atelectasis. No pneumothorax or pneumomediastinum. CONCLUSION: Negative exam.
[2020-08-02 12:25] LABS: PTT,PARTIAL THROMBOPLSTIN TIME 26.7 SEC (22.0-34.0)
[2020-08-02 12:27] VITALS: BP 110/77
[2020-08-02 12:29] LABS: ANION GAP 11.3 mEq/L (7-13); CHLORIDE,CL 105 mmol/L (98-107); SODIUM,NA 140 mmol/L (136-145)
[2020-08-02] MEDS ORDERED: Ketorolac 30 MG/ML SDV IVPUSH ONE (12:44)
[2020-08-02] MEDS ORDERED: Morphine 4 MG/ML Syringe IVPUSH ONE (12:45)
[2020-08-02] MEDS ORDERED: Ondansetron 4 MG/2 ML SDV IV ONE (12:45)
--- NOTE | 2020-08-02 13:50 | CT ---
EXAMINATION: Abdomen Pelvis wo Cont SEX: Male AGE: 40 years CLINICAL HISTORY: 40-year-old 319 pound male with hematuria complaining of left flank pain. No trauma. Scan technique: Volume acquisition of data emergency unenhanced CT scan abdomen and pelvis obtained without oral or IV contrast (CT stone protocol) while patient was lying supine on the Siemens multi slice scanner [place], [place]. All data archived in the PACS system for storage, reformatting axial/sagittal/coronal planes and study. Interpretation: 1. *Subtle inhomogeneously dense upper pole cortex left kidney suggests possibility of inflammation (pyelonephritis). Clinical? Laboratory? 2. No nephrolithiasis/urolithiasis and no current signs of obstructive uropathy i.e. no pyelocaliectasis or ureterectasis. 3. Incompletely filled but symmetrically distended urinary bladder without intraluminal calcifications. No prostate or ureteral calcifications. 4. Gallbladder inhomogeneously dense suggesting possible noncalcified gallstones. No pericystic fluid. 5. Unenhanced liver, stomach, spleen, pancreas and adrenal glands unremarkable. 6. Normal caliber aortoiliac vessels. No aneurysm or dissection. 7. No inflammatory "dirty" peritoneal fat, signs of mechanical bowel obstruction, ascites or free intraperitoneal air. Normal appendix RLQ. Terminal ileum unremarkable. 8. Mild anterolisthesis L5; L5-S1 disc disease; and chronic reactive arthritic changes lower lumbar spine. 9. Lung bases clear. Normal cardiac silhouette. No pericardial or pleural effusion. Conclusion: Subtle change upper pole cortex, left kidney suggesting infection. Clinical? No sign of urolithiasis or obstructive uropathy. Plain film exam abdomen/pelvis otherwise unremarkable.
[2020-08-02] MEDS ORDERED: Azithromycin 250 MG Tab PO ONE (14:00)
[2020-08-02] MEDS ORDERED: cefTRIAXone 1 GM in Sodium Chloride 0.9% 50 ML IV ONE (14:01)
[2020-08-02] MEDS ORDERED: metroNIDAZOLE 250 MG Tab PO ONE (14:01)
[2020-08-02] MEDS ORDERED: diphenhydrAMINE 50 MG/ML SDV IVPUSH ONE (14:02)
[2020-08-05 22:42] LABS: C.TRACHOMATIS BY TMA Negative (Negative); N.GONORRHOEAE BY TMA Negative (Negative)
== END 2020-08-02 14:50 | disposition home or self-care (01) ==
LOC: DL.ED 11:37
DX: R07.89 Other chest pain (principal); R10.9 Unspecified abdominal pain; A59.00 Urogenital trichomoniasis, unspecified; R56.9 Unspecified convulsions; I10 Essential (primary) hypertension; E66.9 Obesity, unspecified; Z68.41 Body mass index [BMI] 40.0-44.9, adult; Z88.5 Allergy status to narcotic agent; Z88.0 Allergy status to penicillin; Z79.899 Other long term (current) drug therapy
CPT/HCPCS: 36415; 71045; 74176; 80053; 80305; 81001; 82150; 83690; 84484; 85025; 85379; 85610; 85730; 87086; 87491; 87591; 93005; 96374; 96375; 99285; A9270; J0696; J1200; J1885; J2270; J2405; J7050

== ENCOUNTER 2020-10-28 18:23 | Emergency (ER) | payer MEDICAID ==
[2020-10-28] MEDS ORDERED: Acetaminophen/HYDROcodone 325-10 MG Tab PO ONE (18:24)
[2020-10-28 18:43] VITALS: BP 138/49; PULSE 80
--- NOTE | 2020-10-28 18:54 | EDM.PDOC ---
ED HPI GENERAL MEDICAL PROBLEM - General Chief Complaint: Headache Stated Complaint: SEVERE HEADACHE, DIZZY SPELLS Time Seen by Provider: 10/28/20 18:52 Source of Information: Reports: Patient History Limitations: Reports: No Limitations - History of Present Illness INITIAL COMMENTS - FREE TEXT/NARRATIVE: give recurrent h/o headaches. present episode past 3 days with nausea and whole head hurts and hard to work like this. Frontal Head Pain Score (Numeric/FACES): 8 - Related Data Allergies Allergy/AdvReac Type Severity Reaction Status Date / Time Penicillins Allergy Unknown Tachycardia Verified 10/28/20 18:43 tramadol Allergy Other Verified 10/28/20 18:43 Home Meds: Home Meds Acetaminophen [Tylenol Extra Strength] 1,000 mg PO Q12H 11/03/15 [History] Nitroglycerin [Nitrostat] 0.4 mg SL ASDIRECTED PRN 08/02/20 [History] Aspirin [Aspirin EC] 81 mg PO DAILY 08/23/20 [History] Phenytoin Sodium Extended [Dilantin] 100 mg PO BID 08/23/20 [History] Past Medical History - Past Health History Medical/Surgical History: Denies Medical/Surgical History HEENT History: Reports: Impaired Vision Cardiovascular History: Reports: CAD, Hypertension Other Cardiovascular History: Stop taking medication 2 years ago- hypertension had resolved Respiratory History: Reports: None Gastrointestinal History: Reports: None Genitourinary History: Reports: Other (See Below) Other Genitourinary History: infection top of kidney on left Musculoskeletal History: Reports: Arthritis, Back Pain, Chronic Neurological History: Reports: Seizure Other Neuro History: last seizure in when he had hemorrhoid surg Psychiatric History: Reports: None Endocrine/Metabolic History: Reports: None Hematologic History: Reports: None Immunologic History: Reports: None Oncologic (Cancer) History: Reports: None Dermatologic History: Reports: Eczema - Infectious Disease History Infectious Disease History: Reports: None - Past Surgical History Head Surgeries/Procedures: Reports: None HEENT Surgical History: Reports: Other (See Below) Other HEENT Surgeries/Procedures: teeth were surgically removed Cardiovascular Surgical History: Reports: None GI Surgical History: Reports: None Social & Family History - Family History Family Medical History: No Pertinent Family History - Tobacco Use Tobacco Use Status *Q: Never Tobacco User - Caffeine Use Caffeine Use: Reports: None Caffeine Use Comment: 5 cans - Recreational Drug Use Recreational Drug Use: No - Living Situation & Occupation Living situation: Reports: with Family Occupation: Employed ED ROS GENERAL - Review of Systems Review Of Systems: Comprehensive ROS is negative, except as noted in HPI. - Physical Exam Exam: See Below Exam Limited By: No Limitations General Appearance: Alert, WD/WN, Mild Distress, Other (discomfort) Eye Exam: Bilateral Eye: PERRL (pupils ess ER @ 4mm) Ears: Hearing Grossly Normal Throat/Mouth: Normal Voice, No Airway Compromise Head Exam: Atraumatic Neck: Non-Tender, Full Range of Motion Respiratory/Chest: No Respiratory Distress Cardiovascular: Regular Rate, Rhythm GI/Abdominal: Soft, Non-Tender (Male) Exam: Deferred Rectal (Males) Exam: Deferred Neuro Exam (Abbreviated): Alert, Oriented, Normal Cognition, Normal Gait, No Motor/Sensory Deficits Psychiatric: Flat Affect Skin Exam: Warm, Dry, Normal Color Course - Vital Signs Last Recorded V/S: Last Vital Signs Temp 37.2 C 10/28/20 18:31 Pulse 80 10/28/20 18:31 Resp 18 10/28/20 18:31 BP 138/49 L 10/28/20 18:31 Pulse Ox 98 10/28/20 18:31 - Orders/Labs/Meds Orders: Active Orders 24 hr Category Date Time Status Ketorolac [Toradol] Med 10/28/20 18:51 Once 30 mg IM ONETIME ONE Ondansetron [Zofran ODT] Med 10/28/20 18:51 Once 4 mg PO ONETIME ONE Departure - Departure Time of Disposition: 18:53 Disposition: Home, Self-Care 01 Condition: Good Clinical Impression: Headache Qualifiers: Headache type: unspecified Headache chronicity pattern: episodic headache Intractability: not intractable Qualified Code(s): R51.9 - Headache, unspecified - Discharge Information Instructions: General Headache Without Cause, [id number] Additional Instructions: 1) rest 2) avoid bright lights and loud noises 3) follow up at clinic rx [place] hi 10 x 1 Sepsis Event Note (ED) - Evaluation Sepsis Screening Result: No Definite Risk - Focused Exam Vital Signs: Vital Signs Temp Pulse Resp BP Pulse Ox 10/28/20 18:31 37.2 C 80 18 138/49 L 98 - My Orders Last 24 Hours: My Active Orders 10/28/20 18:51 Ketorolac [Toradol] 30 mg IM ONETIME ONE Ondansetron [Zofran ODT] 4 mg PO ONETIME ONE - Assessment/Plan Last 24 Hours: My Active Orders 10/28/20 18:51 Ketorolac [Toradol] 30 mg IM ONETIME ONE Ondansetron [Zofran ODT] 4 mg PO ONETIME ONE
[2020-10-28] MEDS: Ondansetron 4 MG Tab.DIS PO ONE (19:02)
[2020-10-28] MEDS: Ketorolac 30 MG/ML SDV IM ONE (19:02)
[2020-10-28] MEDS ORDERED: Acetaminophen/HYDROcodone 325-10 MG Tab ONE (19:22)
== END 2020-10-28 19:23 | disposition home or self-care (01) ==
LOC: DL.ED 18:23
DX: R51.9 Headache, unspecified (principal); I25.10 Atherosclerotic heart disease of native coronary artery without angina pectoris; I10 Essential (primary) hypertension; M19.90 Unspecified osteoarthritis, unspecified site; R56.9 Unspecified convulsions; Z88.0 Allergy status to penicillin; Z88.5 Allergy status to narcotic agent; Z79.82 Long term (current) use of aspirin; Z79.899 Other long term (current) drug therapy
CPT/HCPCS: 96372; 99283; A9270; J1885

== ENCOUNTER 2020-11-17 18:36 | Emergency (ER) | payer MEDICAID ==
[2020-11-17] MEDS ORDERED: Cyclobenzaprine 10 MG Tab PO ONE (18:37)
[2020-11-17] MEDS ORDERED: Acetaminophen/HYDROcodone 325-10 MG Tab PO ONE (18:37)
[2020-11-17 18:56] VITALS: BP 131/76; PULSE 79
--- NOTE | 2020-11-17 20:21 | CT ---
PROCEDURE INFORMATION: Exam: CT Lumbar Spine Without Contrast Exam date and time: 11/17/2020 7:25 PM Age: 40 years old Clinical indication: Other: Low back pain radiation left leg TECHNIQUE: Imaging protocol: Computed tomography images of the lumbar spine without contrast. Radiation optimization: All CT scans at this facility use at least one of these dose optimization techniques: automated exposure control; mA and/or kV adjustment per patient size (includes targeted exams where dose is matched to clinical indication); or iterative reconstruction. COMPARISON: CR Lumbar Spine 2 or 3V 05/19/2015 3:49 AM FINDINGS: Vertebrae: Marginal osteophytes are noted at multiple levels in the spine. Grade 1 anterior spondylolisthesis of L5-S1. There is bilateral spondylolysis at L5. The vertebral body heights are maintained. Discs/Spinal canal/Neural foramina: There appears to be disc protrusion at L4-L5 causing ventral impression upon the thecal sac slightly more towards the right. There is disc narrowing and vacuum disc phenomenon at L5-S1. Soft tissues: The extraspinous soft tissues are normal. IMPRESSION: 1. L5 grade 1 spondylolisthesis. 2. Bilateral L5 spondylolysis. 3. L4-L5 disc protrusion causing ventral impression upon the thecal sac slightly more towards the right.
[2020-11-17] MEDS ORDERED: Cyclobenzaprine 10 MG Tab ONE (20:26)
[2020-11-17] MEDS ORDERED: Acetaminophen/HYDROcodone 325-10 MG Tab ONE (20:26)
--- NOTE | 2020-11-17 20:32 | EDM.PDOC ---
ED HPI GENERAL MEDICAL PROBLEM - General Chief Complaint: Back Pain or Injury Stated Complaint: LOWER BACK PAIN Time Seen by Provider: 11/17/20 19:10 Source of Information: Reports: Patient History Limitations: Reports: No Limitations - History of Present Illness INITIAL COMMENTS - FREE TEXT/NARRATIVE: ED with c/o low back pain, starting around 1030 this am. States at work , cr ouched down pulling off gear and felt pop in low back. Had to be assisted into standing position. No numbness but pain low back and left buttock. Worse with movement, unable to find comfortable positions. Tried tylenol but didn't help. Denied previous back injury. No difficulty with urination or incontinence. No weakness. Bilateral Lower Back Pain Score (Numeric/FACES): 9 - Related Data Allergies Allergy/AdvReac Type Severity Reaction Status Date / Time Penicillins Allergy Unknown Tachycardia Verified 11/17/20 18:56 tramadol Allergy Other Verified 11/17/20 18:56 Home Meds: Home Meds Acetaminophen [Tylenol Extra Strength] 1,000 mg PO Q12H 11/03/15 [History] Nitroglycerin [Nitrostat] 0.4 mg SL ASDIRECTED PRN 08/02/20 [History] Aspirin [Aspirin EC] 81 mg PO DAILY 08/23/20 [History] Phenytoin Sodium Extended [Dilantin] 100 mg PO BID 08/23/20 [History] Past Medical History - Past Health History Medical/Surgical History: Denies Medical/Surgical History HEENT History: Reports: Impaired Vision Cardiovascular History: Reports: CAD, Hypertension Other Cardiovascular History: Stop taking medication 2 years ago- hypertension had resolved Respiratory History: Reports: None Gastrointestinal History: Reports: None Genitourinary History: Reports: Other (See Below) Other Genitourinary History: infection top of kidney on left Musculoskeletal History: Reports: Arthritis, Back Pain, Chronic Neurological History: Reports: Seizure Other Neuro History: last seizure in when he had hemorrhoid surg Psychiatric History: Reports: None Endocrine/Metabolic History: Reports: None Hematologic History: Reports: None Immunologic History: Reports: None Oncologic (Cancer) History: Reports: None Dermatologic History: Reports: Eczema - Infectious Disease History Infectious Disease History: Reports: None - Past Surgical History Head Surgeries/Procedures: Reports: None HEENT Surgical History: Reports: Other (See Below) Other HEENT Surgeries/Procedures: teeth were surgically removed Cardiovascular Surgical History: Reports: None GI Surgical History: Reports: None Social & Family History - Family History Family Medical History: No Pertinent Family History - Tobacco Use Tobacco Use Status *Q: Never Tobacco User Second Hand Smoke Exposure: No - Caffeine Use Caffeine Use: Reports: None Caffeine Use Comment: 5 cans - Recreational Drug Use Recreational Drug Use: No - Living Situation & Occupation Living situation: Reports: with Family Occupation: Employed ED ROS GENERAL - Review of Systems Review Of Systems: Comprehensive ROS is negative, except as noted in HPI. ED EXAM,LOWER BACK PAIN/INJURY - Physical Exam Exam: See Below Exam Limited By: No Limitations General Appearance: Alert, Moderate Distress, Obese (morbid) Eye Exam: Bilateral Eye: EOMI Ears: Normal External Exam, Hearing Grossly Normal Nose: Normal Inspection Throat/Mouth: Normal Voice. No: Normal Teeth (poor dentation) Head: Atraumatic, Normocephalic Neck: Normal Inspection Respiratory/Chest: No Respiratory Distress, Lungs Clear, Normal Breath Sounds Cardiovascular: Regular Rate, Rhythm GI/Abdominal: Normal Bowel Sounds, Non-Tender Back Exam: Muscle Spasm, Paraspinal Tenderness (low back), Vertebral Tenderness Neurological: Alert, Normal Dorsiflexion, Normal Plantar Flexion, Normal Gait, Normal Reflexes, No Motor/Sensory Deficits, Oriented x 3, Abnormal Gait, Straight Leg Raise (L) DTR - Lower Extremities: 2+: Knee (R), Knee (L) Psychiatric: Normal Affect, Normal Mood Skin Exam: Warm, Dry, Intact, Normal Color Course - Vital Signs Last Recorded V/S: Last Vital Signs Temp 98.2 F 11/17/20 18:50 Pulse 79 11/17/20 18:50 Resp 18 11/17/20 18:50 BP 131/76 11/17/20 18:50 Pulse Ox 95 11/17/20 18:50 - Orders/Labs/Meds Meds: Medications Discontinued Medications Generic Name Dose Route Start Last Admin Trade Name Valerioq PRN Reason Stop Dose Admin Hydrocodone Bitart/Acetaminophen Confirm 11/17/20 20:26 [place] 325-10 Mg Administered 11/17/20 20:27 Dose 2 tab .ROUTE .STK-MED ONE Cyclobenzaprine HCl Confirm 11/17/20 20:26 Flexeril Administered 11/17/20 20:27 Dose 20 mg .ROUTE .STK-MED ONE Departure - Departure Time of Disposition: 20:26 Disposition: Home, Self-Care 01 Condition: Good Clinical Impression: Lumbar radicular pain Low back strain Qualifiers: Encounter type: initial encounter Qualified Code(s): S39.012A - Strain of muscle, fascia and tendon of lower back, initial encounter - Discharge Information *PRESCRIPTION DRUG MONITORING PROGRAM REVIEWED*: No *COPY OF PRESCRIPTION DRUG MONITORING REPORT IN PATIENT MARCY: No Instructions: Lumbar Strain Referrals: PCP,Unobtain [Ordering Only Provider] - Forms: ED Department Discharge Additional Instructions: rest cold back to low back to decrease inflammation flexeril 10mg one every 8 hours as needed for muscle spasm hydrocodone/apap 10/325 one every 6 hours as needed for severe pain Recheck clinic on Sunday Urgent follow up if unable to control urine or loss of bowel control tylenol 650mg for mild to moderate discomfort Sepsis Event Note (ED) - Evaluation Sepsis Screening Result: No Definite Risk - Focused Exam Vital Signs: Vital Signs Temp Pulse Resp BP Pulse Ox 11/17/20 18:50 98.2 F 79 18 131/76 95
== END 2020-11-17 20:36 | disposition home or self-care (01) ==
LOC: DL.ED 18:36
DX: S39.012A Strain of muscle, fascia and tendon of lower back, initial encounter (principal); I10 Essential (primary) hypertension; I25.10 Atherosclerotic heart disease of native coronary artery without angina pectoris; Z88.0 Allergy status to penicillin; Z88.5 Allergy status to narcotic agent; Z79.82 Long term (current) use of aspirin; Z79.899 Other long term (current) drug therapy; X58.XXXA Exposure to other specified factors, initial encounter; Y99.0 Civilian activity done for income or pay
CPT/HCPCS: 72131; 99283-25; A9270-GY

== ENCOUNTER 2020-12-22 19:33 | Emergency (ER) | payer MEDICAID ==
[2020-12-22 22:45] VITALS: BP 124/80; PULSE 71
--- NOTE | 2020-12-22 23:09 | EDM.PDOC ---
ED HPI GENERAL MEDICAL PROBLEM - General Chief Complaint: Respiratory Problem Stated Complaint: RUNNY NOSE, HARD TO SWALLOW Time Seen by Provider: 12/22/20 22:51 Source of Information: Reports: Patient, RN, RN Notes Reviewed History Limitations: Reports: No Limitations - History of Present Illness INITIAL COMMENTS - FREE TEXT/NARRATIVE: Patient presents to the ED via personal vehicle with complaints of cough, sore throat, runny nose, and fever for two days. Additionally, the patient attests to muscle aches, fatigue, nausea with five bouts of emesis, and six episodes of diarrhea. He states he took one dose of Tylenol 650mg which offered him little to no relief of symptoms. The patient denies a history of COVID infection or recent influenza infection and has not received the COVID or influenza vaccine. He denies vision changes, chest pain, palpitations, shortness of breath, dyspepsia, hematemesis, dysuria, hematuria, melena, or hematochezia. He denies tobacco, alcohol, or recreational drug use. Generalized Pain Score (Numeric/FACES): 8 - Related Data Allergies Allergy/AdvReac Type Severity Reaction Status Date / Time Penicillins Allergy Unknown Tachycardia Verified 12/22/20 22:49 tramadol Allergy Other Verified 12/22/20 22:49 Home Meds: Home Meds Acetaminophen [Tylenol Extra Strength] 1,000 mg PO Q12H 11/03/15 [History] Nitroglycerin [Nitrostat] 0.4 mg SL ASDIRECTED PRN 08/02/20 [History] Aspirin [Aspirin EC] 81 mg PO DAILY 08/23/20 [History] Phenytoin Sodium Extended [Dilantin] 100 mg PO BID 08/23/20 [History] levETIRAcetam [Keppra] 300 mg PO BID 12/22/20 [History] Past Medical History - Past Health History Medical/Surgical History: Denies Medical/Surgical History HEENT History: Reports: Impaired Vision Cardiovascular History: Reports: CAD, Hypertension Other Cardiovascular History: Stop taking medication 2 years ago- hypertension had resolved Respiratory History: Reports: None Gastrointestinal History: Reports: None Genitourinary History: Reports: Other (See Below) Other Genitourinary History: infection top of kidney on left Musculoskeletal History: Reports: Arthritis, Back Pain, Chronic Neurological History: Reports: Seizure Other Neuro History: last seizure in when he had hemorrhoid surg Psychiatric History: Reports: None Endocrine/Metabolic History: Reports: None Hematologic History: Reports: None Immunologic History: Reports: None Oncologic (Cancer) History: Reports: None Dermatologic History: Reports: Eczema - Infectious Disease History Infectious Disease History: Reports: None - Past Surgical History Head Surgeries/Procedures: Reports: None HEENT Surgical History: Reports: Other (See Below) Other HEENT Surgeries/Procedures: teeth were surgically removed Cardiovascular Surgical History: Reports: None GI Surgical History: Reports: None Social & Family History - Family History Family Medical History: No Pertinent Family History - Tobacco Use Tobacco Use Status *Q: Never Tobacco User Second Hand Smoke Exposure: No - Caffeine Use Caffeine Use: Reports: Tea Caffeine Use Comment: 5 cans - Recreational Drug Use Recreational Drug Use: No - Living Situation & Occupation Living situation: Reports: with Family Occupation: Employed ED ROS GENERAL - Review of Systems Review Of Systems: Comprehensive ROS is negative, except as noted in HPI. ED EXAM, GENERAL - Physical Exam Exam: See Below Exam Limited By: No Limitations General Appearance: Alert, No Apparent Distress Eye Exam: Bilateral Eye: EOMI, Normal Inspection, PERRL (3mm) Ears: Normal External Exam, Normal Canal, Hearing Grossly Normal, Normal TMs Ear Exam: Bilateral Ear: Auricle Normal, Canal Normal, TM normal Nose: Normal Inspection, Normal Mucosa, No Blood, Clear Rhinorrhea Throat/Mouth: Normal Voice, No Airway Compromise Head: Atraumatic, Normocephalic Neck: Supple, Non-Tender, Full Range of Motion, Lymphadenopathy (R). No: Lymphadenopathy (L) Respiratory/Chest: No Respiratory Distress, Lungs Clear, Normal Breath Sounds, No Accessory Muscle Use, Chest Non-Tender Cardiovascular: Normal Peripheral Pulses, Regular Rate, Rhythm, No Gallop, No JVD, No Murmur, No Rub Peripheral Pulses: 2+: Radial (L), Radial (R) GI/Abdominal: Soft, No Distention, No Abnormal Bruit, No Mass, Pelvis Stable, Tender (To palpation of RLQ), Abnormal Bowel Sounds (Hypoactive bowel sounds). No: Guarding, Rigid, Rebound (Male) Exam: Deferred Rectal (Males) Exam: Deferred Back Exam: Normal Inspection, Full Range of Motion, CVA Tenderness (L). No: CVA Tenderness (R) Extremities: Normal Range of Motion, Non-Tender, Normal Capillary Refill, Pedal Edema (Trace, bilaterally) Neurological: Alert, Oriented, CN II-XII Intact, Normal Cognition, Normal Gait, No Motor/Sensory Deficits Psychiatric: Normal Affect, Normal Mood Skin Exam: Warm, Dry, Intact, Normal Color, No Rash. No: Ecchymosis, Erythema, Jaundice, Mottled, Pallor, Petechiae Course - Vital Signs Last Recorded V/S: Last Vital Signs Temp 97.7 F 12/22/20 22:44 Pulse 71 12/22/20 22:44 Resp 20 12/22/20 22:44 BP 124/80 12/22/20 22:44 Pulse Ox 98 12/22/20 22:44 - Orders/Labs/Meds Labs: Laboratory Tests 12/22/20 12/22/20 12/22/20 Range/Units 22:30 23:17 23:17 WBC 6.7 (5.0-10.0) 10^3/uL RBC 4.64 (4.6-6.2) 10^6/uL Hgb 13.9 L (14.0-18.0) g/dL Hct 41.7 (40.0-54.0) % MCV 89.9 (80-100) fL MCH 30.0 (27.0-34.0) pg MCHC 33.3 (33.0-35.0) g/dL Plt Count 222 (150-450) 10^3/uL Neut % (Auto) 56.7 (42.2-75.2) % Lymph % (Auto) 24.1 (20.5-50.1) % [place] % (Auto) 11.7 H (2-8) % Eos % (Auto) 7.2 H (1.0-3.0) % Baso % (Auto) 0.3 (0.0-1.0) % Sodium 142 (136-145) mmol/L Potassium 4.2 (3.5-5.1) mmol/L Chloride 106 (98-107) mmol/L Carbon Dioxide 26 (21-32) mmol/L Anion Gap 14.2 H (7-13) mEq/L BUN 11 (7-18) mg/dL Creatinine 0.72 (0.70-1.30) mg/dL Est Cr Clr Drug Dosing 145.25 mL/min Estimated GFR (MDRD) > 60 BUN/Creatinine Ratio 15.3 (No establ ref range) Glucose 132 H (74-99) mg/dL Calcium 7.9 L (8.5-10.1) mg/dL Total Bilirubin 0.2 (0.2-1.0) mg/dL AST 12 L (15-37) U/L ALT 30 (16-63) U/L Alkaline Phosphatase 150 H (46-116) U/L C-Reactive Protein 2.2 H (0.0-0.9) mg/dL Total Protein 6.9 (6.4-8.2) g/dL Albumin 3.2 L (3.4-5.0) g/dL Globulin 3.7 Albumin/Globulin Ratio 0.86 Influenza Type A RNA Negative (NEGATIVE) Influenza Type B RNA Negative (NEGATIVE) SARS-CoV-2 RNA (FRANDY) Negative (NEGATIVE) - Re-Assessments/Exams Free Text/Narrative Re-Assessment/Exam: 12/22/20 COVID and Influenza negative. CBC unremarkable for acute processes; given good breath sounds and lack of chest pain or shortness of breath will r/o pneumonia. Will treat patient for URI with supportive cares and OTC medications. Red flag signs and symptoms which would warrant reevaluation discussed. Patient ve rbalized understanding and agreement with the plan of care. Departure - Departure Time of Disposition: 23:40 Disposition: Home, Self-Care 01 Condition: Good Clinical Impression: Viral upper respiratory infection - Discharge Information *PRESCRIPTION DRUG MONITORING PROGRAM REVIEWED*: Not Applicable *COPY OF PRESCRIPTION DRUG MONITORING REPORT IN PATIENT MARCY: Not Applicable Instructions: Viral Respiratory Infection, [id number] Forms: ED Department Discharge Additional Instructions: 1.) You may continue to take acetaminophen (Tylenol) 650mg every six hours, as fever and muscle aches persist. You may also take ibuprofen (Advil/Motrin) 400mg every six hours, as fever and muscle aches persist. You may stagger these medications so you are taking a dose every three hours. 2.) You may use saline nasal spray and over the counter decongestants for alleviation of nasal congestion. 3.) You may take over the counter Chloraseptic spray to help with sore throat; warm salt water gargles work well, too. 4.) Drink plenty of water to stay hydrated. Sepsis Event Note (ED) - Evaluation Sepsis Screening Result: No Definite Risk - Focused Exam Vital Signs: Vital Signs Temp Pulse Resp BP Pulse Ox 12/22/20 22:44 97.7 F 71 20 124/80 98
[2020-12-22 23:11] LABS: CORONAVIRUS COVID-19 NAA NEGATIVE (NEGATIVE)
[2020-12-22 23:41] LABS: ANION GAP 14.2 mEq/L (7-13); CHLORIDE,CL 106 mmol/L (98-107); SODIUM,NA 142 mmol/L (136-145)
== END 2020-12-22 23:54 | disposition home or self-care (01) ==
LOC: DL.ED 19:33
DX: J06.9 Acute upper respiratory infection, unspecified (principal); I25.10 Atherosclerotic heart disease of native coronary artery without angina pectoris; I10 Essential (primary) hypertension; R56.9 Unspecified convulsions; M19.90 Unspecified osteoarthritis, unspecified site; Z20.822 Contact with and (suspected) exposure to COVID-19; Z88.0 Allergy status to penicillin; Z88.5 Allergy status to narcotic agent; Z79.82 Long term (current) use of aspirin; Z79.899 Other long term (current) drug therapy
CPT/HCPCS: 0240U; 36415; 80053; 85025; 86140; 99283; 99282

== ENCOUNTER 2021-01-28 19:54 | Emergency (ER) | payer MEDICAID ==
[2021-01-28 20:18] VITALS: BP 96/68; PULSE 79
--- NOTE | 2021-01-28 21:43 | CR ---
PROCEDURE INFORMATION: Exam: XR Left Ankle Exam date and time: 01/28/2021 9:18 PM Age: 40 years old Clinical indication: Other: Pain, no known trauma; Additional info: Pain swelling no injury TECHNIQUE: Imaging protocol: XR Left ankle. Views: 3 or more views. COMPARISON: No relevant prior studies available. FINDINGS: Bones/joints: No acute fracture. No dislocation. Normal bone mineralization. No joint effusion. Joint spaces are maintained. Ankle mortise is symmetric. Soft tissues: Mild soft tissue swelling over the lateral malleolus. No radiopaque foreign body. IMPRESSION: 1. No acute fracture. Followup imaging recommended in 7-14 days if clinical concern for fracture persists. 2. Mild soft tissue swelling over the lateral malleolus.
[2021-01-28 22:00] LABS: ANION GAP 15.9 mEq/L (7-13); CHLORIDE,CL 108 mmol/L (98-107); SODIUM,NA 145 mmol/L (136-145)
--- NOTE | 2021-01-28 22:30 | EDM.PDOC ---
ED HPI GENERAL MEDICAL PROBLEM - General Chief Complaint: Lower Extremity Injury/Pain Stated Complaint: PAIN LEFT ANKLE,CHEST AND BACK PAIN Time Seen by Provider: 01/28/21 20:30 Source of Information: Reports: Patient History Limitations: Reports: No Limitations - History of Present Illness INITIAL COMMENTS - FREE TEXT/NARRATIVE: ED with c/o pain to top of left foot and ankle with swelling x 3 days. Denies injury. Left flank and lateral chest pain , ongoing for months and is following with primary and specialty for ongoing testing. No fever or chills. Left Flank Pain Score (Numeric/FACES): 8 - Related Data Allergies Allergy/AdvReac Type Severity Reaction Status Date / Time Penicillins Allergy Unknown Tachycardia Verified 01/28/21 20:14 tramadol Allergy Other Verified 01/28/21 20:14 Home Meds: Home Meds Acetaminophen [Tylenol Extra Strength] 1,000 mg PO Q12H 11/03/15 [History] Nitroglycerin [Nitrostat] 0.4 mg SL ASDIRECTED PRN 08/02/20 [History] Aspirin [Aspirin EC] 81 mg PO DAILY 08/23/20 [History] Phenytoin Sodium Extended [Dilantin] 100 mg PO BID 08/23/20 [History] Past Medical History - Past Health History Medical/Surgical History: Denies Medical/Surgical History HEENT History: Reports: Impaired Vision Cardiovascular History: Reports: CAD, Hypertension Other Cardiovascular History: Stop taking medication 2 years ago- hypertension had resolved Respiratory History: Reports: None Gastrointestinal History: Reports: None Genitourinary History: Reports: Other (See Below) Other Genitourinary History: hx infection top of kidney on left Musculoskeletal History: Reports: Arthritis, Back Pain, Chronic Neurological History: Reports: Seizure Other Neuro History: last seizure in when he had hemorrhoid surg Psychiatric History: Reports: None Endocrine/Metabolic History: Reports: None Hematologic History: Reports: None Immunologic History: Reports: None Oncologic (Cancer) History: Reports: None Dermatologic History: Reports: Eczema - Infectious Disease History Infectious Disease History: Reports: None - Past Surgical History Head Surgeries/Procedures: Reports: None HEENT Surgical History: Reports: Other (See Below) Other HEENT Surgeries/Procedures: teeth were surgically removed Cardiovascular Surgical History: Reports: None GI Surgical History: Reports: None Social & Family History - Family History Family Medical History: No Pertinent Family History - Tobacco Use Tobacco Use Status *Q: Never Tobacco User Second Hand Smoke Exposure: No - Caffeine Use Caffeine Use: Reports: Coffee, Soda Caffeine Use Comment: 5 cans - Recreational Drug Use Recreational Drug Use: No - Living Situation & Occupation Living situation: Reports: with Family Occupation: Employed Review of Systems - Review of Systems Review Of Systems: Comprehensive ROS is negative, except as noted in HPI. ED EXAM, GENERAL - Physical Exam Exam: See Below Exam Limited By: No Limitations General Appearance: Alert, Mild Distress, Obese Eye Exam: Bilateral Eye: EOMI Ears: Normal External Exam, Hearing Grossly Normal Nose: Normal Inspection Throat/Mouth: Normal Inspection Head: Atraumatic, Normocephalic Neck: Normal Inspection Respiratory/Chest: No Respiratory Distress, Lungs Clear, Normal Breath Sounds Cardiovascular: Regular Rate, Rhythm GI/Abdominal: Soft, Non-Tender Extremities: Normal Range of Motion, Limited Range of Motion (pain with flexion extension left ankle). No: Joint Swelling, Sadie's Sign Neurological: Alert, Oriented, Normal Cognition Psychiatric: Normal Affect, Normal Mood Skin Exam: Warm, Dry, Intact, Normal Color. No: Ecchymosis, Erythema, Increased Warmth, Wound/Incision Course - Vital Signs Last Recorded V/S: Last Vital Signs Temp 99.0 F 01/28/21 20:16 Pulse 79 01/28/21 20:16 Resp 18 01/28/21 20:16 BP 96/68 01/28/21 20:16 Pulse Ox 97 01/28/21 20:16 - Orders/Labs/Meds Labs: Laboratory Tests 01/28/21 01/28/21 01/28/21 Range/Units 21:30 21:30 22:33 WBC 8.6 (5.0-10.0) 10^3/uL RBC 4.66 (4.6-6.2) 10^6/uL Hgb 13.4 L (14.0-18.0) g/dL Hct 41.9 (40.0-54.0) % MCV 89.9 (80-100) fL MCH 28.8 (27.0-34.0) pg MCHC 32.0 L (33.0-35.0) g/dL Plt Count 242 (150-450) 10^3/uL Sodium 145 (136-145) mmol/L Potassium 3.9 (3.5-5.1) mmol/L Chloride 108 H (98-107) mmol/L Carbon Dioxide 25 (21-32) mmol/L Anion Gap 15.9 H (7-13) mEq/L BUN 21 H (7-18) mg/dL Creatinine 0.97 (0.70-1.30) mg/dL Est Cr Clr Drug Dosing 107.82 mL/min Estimated GFR (MDRD) > 60 BUN/Creatinine Ratio 21.6 (No establ ref range) Glucose 138 H (74-99) mg/dL Uric Acid 7.1 (3.5-7.2) mg/dL Calcium 8.3 L (8.5-10.1) mg/dL Total Bilirubin 0.1 L (0.2-1.0) mg/dL AST 19 (15-37) U/L ALT 35 (16-63) U/L Alkaline Phosphatase 150 H (46-116) U/L Total Protein 6.9 (6.4-8.2) g/dL Albumin 3.4 (3.4-5.0) g/dL Globulin 3.5 Albumin/Globulin Ratio 1.0 Urine Color Yellow (YELLOW) Urine Appearance Clear (CLEAR) Urine pH 6.0 (5.0-9.0) Ur Specific [place] >= 1.030 (1.005-1.030) Urine Protein Negative (NEGATIVE) Urine Glucose (UA) Negative (NEGATIVE) Urine Ketones Negative (NEGATIVE) Urine Occult Blood Negative (NEGATIVE) Urine Nitrite Negative (NEGATIVE) Urine Bilirubin Negative (NEGATIVE) Urine Urobilinogen 0.2 (0.2-1.0) mg/dL Ur Leukocyte Esterase Negative (NEGATIVE) Departure - Departure Time of Disposition: 22:28 Disposition: Home, Self-Care 01 Condition: Good (left ankle pain) Clinical Impression: Ankle pain, left Qualifiers: Chronicity: acute Qualified Code(s): M25.572 - Pain in left ankle and joints of left foot - Discharge Information *PRESCRIPTION DRUG MONITORING PROGRAM REVIEWED*: No *COPY OF PRESCRIPTION DRUG MONITORING REPORT IN PATIENT MARCY: No Instructions: Ankle Pain Referrals: Mushtaq Tirado MD [Primary Care Provider] - Forms: ED Department Discharge Additional Instructions: tylenol 650mg every 4 hours as needed for discomfort clinic follow up on Sunday as scheduled, sooner if symptoms worsen Sepsis Event Note (ED) - Evaluation Sepsis Screening Result: No Definite Risk
== END 2021-01-28 22:49 | disposition home or self-care (01) ==
LOC: DL.ED 19:54
DX: M25.572 Pain in left ankle and joints of left foot (principal); R10.9 Unspecified abdominal pain; R07.9 Chest pain, unspecified; I25.10 Atherosclerotic heart disease of native coronary artery without angina pectoris; I10 Essential (primary) hypertension; M19.90 Unspecified osteoarthritis, unspecified site; Z88.0 Allergy status to penicillin; Z88.5 Allergy status to narcotic agent; Z79.82 Long term (current) use of aspirin; Z79.899 Other long term (current) drug therapy
CPT/HCPCS: 36415; 73610-LT; 80053; 81003; 84550; 85027; 99282; 99283

== ENCOUNTER 2021-02-25 20:23 | Emergency (ER) | payer MEDICAID ==
[2021-02-25 21:07] VITALS: BP 140/71; PULSE 57
[2021-02-25] MEDS ORDERED: Ondansetron 4 MG/2 ML SDV IVPUSH ONE (21:20)
[2021-02-25] MEDS ORDERED: Ketorolac 30 MG/ML SDV IVPUSH ONE (21:20)
[2021-02-25] MEDS ORDERED: Sodium Chloride 0.9% 1,000 ML IV ONE (21:20)
--- NOTE | 2021-02-25 21:56 | EDM.PDOC ---
ED HPI GENERAL MEDICAL PROBLEM - General Chief Complaint: Headache Stated Complaint: MIGRAINE, THROWING UP Time Seen by Provider: 02/25/21 21:25 Source of Information: Reports: Patient History Limitations: Reports: No Limitations - History of Present Illness INITIAL COMMENTS - FREE TEXT/NARRATIVE: This 40 yo male patient reports to the ED due to a headache that started at about 1400 today and nausea/vomiting that started at about 1700 tonight. The patient reports he has vomited 5 times since he started getting nauseated. The patient reports no history of migraine headaches. Onset: Today Duration: Hour(s):, Constant Location: Reports: Head, Abdomen Quality: Reports: Other Severity: Moderate Improves with: Reports: None Worsens with: Reports: None Context: Reports: Other Associated Symptoms: Reports: Headaches, Nausea/Vomiting Headache Pain Score (Numeric/FACES): 10 - Related Data Allergies Allergy/AdvReac Type Severity Reaction Status Date / Time Penicillins Allergy Unknown Tachycardia Verified 01/28/21 20:14 tramadol Allergy Other Verified 01/28/21 20:14 Home Meds: Home Meds Acetaminophen [Tylenol Extra Strength] 1,000 mg PO Q12H 11/03/15 [History] Nitroglycerin [Nitrostat] 0.4 mg SL ASDIRECTED PRN 08/02/20 [History] Aspirin [Aspirin EC] 81 mg PO DAILY 08/23/20 [History] Phenytoin Sodium Extended [Dilantin] 100 mg PO BID 08/23/20 [History] Past Medical History - Past Health History Medical/Surgical History: Denies Medical/Surgical History HEENT History: Reports: Impaired Vision Cardiovascular History: Reports: CAD, Hypertension Other Cardiovascular History: Stop taking medication 2 years ago- hypertension had resolved Respiratory History: Reports: None Gastrointestinal History: Reports: None Genitourinary History: Reports: Other (See Below) Other Genitourinary History: hx infection top of kidney on left Musculoskeletal History: Reports: Arthritis, Back Pain, Chronic Neurological History: Reports: Seizure Other Neuro History: last seizure in when he had hemorrhoid surg Psychiatric History: Reports: None Endocrine/Metabolic History: Reports: None Hematologic History: Reports: None Immunologic History: Reports: None Oncologic (Cancer) History: Reports: None Dermatologic History: Reports: Eczema - Infectious Disease History Infectious Disease History: Reports: None - Past Surgical History Head Surgeries/Procedures: Reports: None HEENT Surgical History: Reports: Other (See Below) Other HEENT Surgeries/Procedures: teeth were surgically removed Cardiovascular Surgical History: Reports: None GI Surgical History: Reports: None Social & Family History - Family History Family Medical History: No Pertinent Family History - Tobacco Use Tobacco Use Status *Q: Never Tobacco User Second Hand Smoke Exposure: No - Caffeine Use Caffeine Use: Reports: Soda Caffeine Use Comment: 5 cans - Recreational Drug Use Recreational Drug Use: No - Living Situation & Occupation Living situation: Reports: with Family Occupation: Employed ED ROS GENERAL - Review of Systems Review Of Systems: Comprehensive ROS is negative, except as noted in HPI. - Physical Exam Exam: See Below Exam Limited By: No Limitations General Appearance: Alert, WD/WN, Moderate Distress, Obese Eye Exam: Bilateral Eye: EOMI, Normal Inspection, PERRL Ears: Normal External Exam, Normal Canal, Hearing Grossly Normal, Normal TMs Nose: Normal Inspection, Normal Mucosa, No Blood Throat/Mouth: Normal Inspection, Normal Lips, Normal Teeth, Normal Gums, Normal Oropharynx, Normal Voice, No Airway Compromise Head Exam: Atraumatic, Normocephalic Neck: Normal Inspection, Supple, Non-Tender, Full Range of Motion Respiratory/Chest: No Respiratory Distress, Lungs Clear, Normal Breath Sounds, No Accessory Muscle Use, Chest Non-Tender GI/Abdominal: Normal Bowel Sounds, Soft, Non-Tender, No Organomegaly, No Distention, No Abnormal Bruit, No Mass (Male) Exam: Deferred Rectal (Males) Exam: Deferred Neuro Exam (Abbreviated): Alert, Oriented, CN II-XII Intact, Normal Cognition, Normal Gait, Normal Reflexes, No Motor/Sensory Deficits Back Exam: Normal Inspection, Full Range of Motion, NT Extremities: Normal Inspection, Normal Range of Motion, Non-Tender, No Pedal Edema, Normal Capillary Refill Psychiatric: Normal Affect, Normal Mood Skin Exam: Warm, Dry, Intact, Normal Color, No Rash Course - Vital Signs Last Recorded V/S: Last Vital Signs Temp 37.2 C 02/25/21 21:05 Pulse 57 L 02/25/21 21:05 Resp 22 H 02/25/21 21:05 BP 140/71 02/25/21 21:05 Pulse Ox 98 02/25/21 21:05 - Orders/Labs/Meds Orders: Active Orders 24 hr Category Date Time Status Sodium Chloride 0.9% [Normal Saline] 1,000 ml Med 02/25/21 21:20 Ordered IV .BOLUS Medication Orders Sodium Chloride (Normal Saline) 1,000 mls @ 999 mls/hr IV .BOLUS ONE Stop: 02/25/21 22:20 Last Admin: 02/25/21 21:33 Dose: 999 mls/hr Documented by: TAURUS Meds: Medications Generic Name Dose Route Start Last Admin Trade Name Freq PRN Reason Stop Dose Admin Sodium Chloride 1,000 mls @ 999 mls/hr 02/25/21 21:20 02/25/21 21:33 Normal Saline IV 02/25/21 22:20 999 mls/hr .BOLUS ONE Administration Discontinued Medications Generic Name Dose Route Start Last Admin Trade Name Freq PRN Reason Stop Dose Admin Ketorolac Tromethamine 30 mg 02/25/21 21:20 02/25/21 21:33 Ketorolac 30 Mg/Ml Sdv IVPUSH 02/25/21 21:21 30 mg ONETIME ONE Administration Ondansetron HCl 4 mg 02/25/21 21:20 02/25/21 21:34 Ondansetron 4 Mg/2 Ml Sdv IVPUSH 02/25/21 21:21 4 mg ONETIME ONE Administration - Re-Assessments/Exams Free Text/Narrative Re-Assessment/Exam: 02/25/21 21:54 The patient reports his nausea is gone and his headache is getting much better. Departure - Departure Time of Disposition: 22:30 Disposition: Home, Self-Care 01 Condition: Fair Clinical Impression: Headache Qualifiers: Headache type: tension-type Headache chronicity pattern: episodic headache Int ractability: not intractable Qualified Code(s): G44.219 - Episodic tension-type headache, not intractable Nausea & vomiting Qualifiers: Vomiting type: unspecified Vomiting Intractability: non-intractable Qualified Code(s): R11.2 - Nausea with vomiting, unspecified - Discharge Information *PRESCRIPTION DRUG MONITORING PROGRAM REVIEWED*: Not Applicable *COPY OF PRESCRIPTION DRUG MONITORING REPORT IN PATIENT MARCY: Not Applicable Instructions: General Headache Without Cause, [id number], Nausea, Adult, [id number] Care Plan Goals: The patient was advised of the examination results during the visit. The patient was given IV fluids, IV Toradol and IV Zofran while in the ED with resolution of his symptoms. The patient was encouraged to take over the counter medications for temporary symptom relief. If the patient has any additional symptoms or concerns, the patient should either return to the emergency department or visit his primary care facility. Sepsis Event Note (ED) - Evaluation Sepsis Screening Result: No Definite Risk - Focused Exam Vital Signs: Vital Signs Temp Pulse Resp BP Pulse Ox 02/25/21 21:05 37.2 C 57 L 22 H 140/71 98 - My Orders Last 24 Hours: My Active Orders 02/25/21 21:20 Sodium Chloride 0.9% [Normal Saline] 1,000 ml IV .BOLUS - Assessment/Plan Last 24 Hours: My Active Orders 02/25/21 21:20 Sodium Chloride 0.9% [Normal Saline] 1,000 ml IV .BOLUS
== END 2021-02-25 22:46 | disposition home or self-care (01) ==
LOC: DL.ED 20:23
DX: G44.219 Episodic tension-type headache, not intractable (principal); R11.2 Nausea with vomiting, unspecified; I25.10 Atherosclerotic heart disease of native coronary artery without angina pectoris; I10 Essential (primary) hypertension; Z79.82 Long term (current) use of aspirin; Z88.5 Allergy status to narcotic agent; Z88.0 Allergy status to penicillin
CPT/HCPCS: 96374; 96375; 99283; J1885; J2405; J7030

== ENCOUNTER 2021-03-23 19:57 | Emergency (ER) | payer MEDICAID ==
[2021-03-23] MEDS ORDERED: Benzonatate 100 MG Cap PO ONE (19:58)
[2021-03-23 20:37] VITALS: BP 136/82; PULSE 66
[2021-03-23 21:24] LABS: CORONAVIRUS COVID-19 NAA NEGATIVE (NEGATIVE)
--- NOTE | 2021-03-23 21:35 | EDM.PDOC ---
ED HPI GENERAL MEDICAL PROBLEM - General Chief Complaint: Respiratory Problem Stated Complaint: BAD COUGH AND RUNNY NOSE NO TEMP Time Seen by Provider: 03/23/21 20:40 Source of Information: Reports: Patient History Limitations: Reports: No Limitations - History of Present Illness INITIAL COMMENTS - FREE TEXT/NARRATIVE: ED with c/o bodayaches, congestion and cough starting. today. Brother with COVID couple weeks ago but ot around [place], works at [employer]. No nausea or vomiting. non smoker. Throat Pain Score (Numeric/FACES): 4 - Related Data Allergies Allergy/AdvReac Type Severity Reaction Status Date / Time Penicillins Allergy Unknown Tachycardia Verified 03/23/21 20:37 tramadol Allergy Other Verified 03/23/21 20:37 Home Meds: Home Meds Acetaminophen [Tylenol Extra Strength] 1,000 mg PO Q12H 11/03/15 [History] Nitroglycerin [Nitrostat] 0.4 mg SL ASDIRECTED PRN 08/02/20 [History] Aspirin [Aspirin EC] 81 mg PO DAILY 08/23/20 [History] Phenytoin Sodium Extended [Dilantin] 100 mg PO BID 08/23/20 [History] Past Medical History - Past Health History Medical/Surgical History: Denies Medical/Surgical History HEENT History: Reports: Impaired Vision Cardiovascular History: Reports: CAD, Hypertension Other Cardiovascular History: Stop taking medication 2 years ago- hypertension had resolved Respiratory History: Reports: None Gastrointestinal History: Reports: None Genitourinary History: Reports: Other (See Below) Other Genitourinary History: hx infection top of kidney on left Musculoskeletal History: Reports: Arthritis, Back Pain, Chronic Neurological History: Reports: Seizure Other Neuro History: last seizure in when he had hemorrhoid surg Psychiatric History: Reports: None Endocrine/Metabolic History: Reports: None Hematologic History: Reports: None Immunologic History: Reports: None Oncologic (Cancer) History: Reports: None Dermatologic History: Reports: Eczema - Infectious Disease History Infectious Disease History: Reports: None - Past Surgical History Head Surgeries/Procedures: Reports: None HEENT Surgical History: Reports: Other (See Below) Other HEENT Surgeries/Procedures: teeth were surgically removed Cardiovascular Surgical History: Reports: None GI Surgical History: Reports: None Social & Family History - Family History Family Medical History: No Pertinent Family History - Tobacco Use Tobacco Use Status *Q: Never Tobacco User Second Hand Smoke Exposure: No - Caffeine Use Caffeine Use: Reports: Coffee, Soda Caffeine Use Comment: 5 cans - Recreational Drug Use Recreational Drug Use: No - Living Situation & Occupation Living situation: Reports: with Family Occupation: Employed ED ROS GENERAL - Review of Systems Review Of Systems: Comprehensive ROS is negative, except as noted in HPI. ED EXAM, GENERAL - Physical Exam Exam: See Below Exam Limited By: No Limitations General Appearance: Alert, Mild Distress, Obese Eye Exam: Bilateral Eye: EOMI Ears: Normal External Exam Nose: Normal Inspection Throat/Mouth: Normal Voice, Inflammation (mild pharyngeal, no exudate) Head: Atraumatic, Normocephalic Neck: Normal Inspection Respiratory/Chest: No Respiratory Distress, Normal Breath Sounds, Other (frequent dry cough) Cardiovascular: Normal Peripheral Pulses, Regular Rate, Rhythm GI/Abdominal: Normal Bowel Sounds, Soft Neurological: Alert, Oriented Psychiatric: Normal Affect, Normal Mood Course - Vital Signs Last Recorded V/S: Last Vital Signs Temp 98.5 F 03/23/21 20:32 Pulse 66 03/23/21 20:32 Resp 20 03/23/21 20:32 BP 136/82 03/23/21 20:32 Pulse Ox 99 03/23/21 20:32 - Orders/Labs/Meds Labs: Laboratory Tests 03/23/21 Range/Units 20:40 Influenza Type A RNA Negative (NEGATIVE) Influenza Type B RNA Negative (NEGATIVE) SARS-CoV-2 RNA (FRANDY) Negative (NEGATIVE) Meds: Medications Discontinued Medications Generic Name Dose Route Start Last Admin Trade Name Freq PRN Reason Stop Dose Admin Benzonatate Confirm 03/23/21 21:48 Benzonatate 100 Mg Cap Administered 03/23/21 21:49 Dose 400 mg .ROUTE .STK-MED ONE Departure - Departure Time of Disposition: 21:43 Disposition: Home, Self-Care 01 Condition: Good Clinical Impression: Bronchitis URI (upper respiratory infection) Qualifiers: URI type: unspecified viral URI Qualified Code(s): J06.9 - Acute upper respiratory infection, unspecified - Discharge Information *PRESCRIPTION DRUG MONITORING PROGRAM REVIEWED*: No *COPY OF PRESCRIPTION DRUG MONITORING REPORT IN PATIENT MARCY: No Instructions: Viral Respiratory Infection, [id number] Referrals: PCP,None [Primary Care Provider] - Forms: ED Department Discharge Additional Instructions: humidifier tesselon 200mg every 8 hours as needed recheck COVID on Sunday , follow up sooner if symptoms worsen, difficulty breathing over counter cough cold medication per label instructions for congestion Sepsis Event Note (ED) - Evaluation Sepsis Screening Result: No Definite Risk - Focused Exam Vital Signs: Vital Signs Temp Pulse Resp BP Pulse Ox 03/23/21 20:32 98.5 F 66 20 136/82 99
[2021-03-23] MEDS ORDERED: Benzonatate 100 MG Cap ONE (21:48)
== END 2021-03-23 22:20 | disposition home or self-care (01) ==
LOC: DL.ED 19:57
DX: J40 Bronchitis, not specified as acute or chronic (principal); J06.9 Acute upper respiratory infection, unspecified; I25.10 Atherosclerotic heart disease of native coronary artery without angina pectoris; I10 Essential (primary) hypertension; Z20.822 Contact with and (suspected) exposure to COVID-19; Z88.0 Allergy status to penicillin; Z88.5 Allergy status to narcotic agent; Z79.82 Long term (current) use of aspirin
CPT/HCPCS: 0240U; 99283; A9270

== ENCOUNTER 2021-05-10 11:20 | Emergency (ER) | payer MEDICAID ==
[2021-05-10 11:35] VITALS: BP 120/72; PULSE 64
--- NOTE | 2021-05-10 12:04 | CR ---
EXAMINATION: Chest 1V Frontal SEX: Male AGE: 40 years CLINICAL HISTORY: 40-year-old obese male complaining of Chest pain. INTERPRETATION: No acute new cardiopulmonary abnormality since comparison 02 August and 21 May 2020 films. 1. Prominent cardiac silhouette proportionally normal and unchanged. 2. No new pulmonary vascular congestion, cephalization of flow, alveolar edema or dependent pleural effusion. 3. No new lung mass or hilar lymphadenopathy. 4. No alveolar infiltrate, atelectasis/collapse, or peripheral "groundglass" interstitial lung densities. 5. No pneumothorax or pneumomediastinum. Midline tracheal bronchial airway unremarkable.
--- NOTE | 2021-05-10 12:10 | EDM.PDOC ---
ED HPI GENERAL MEDICAL PROBLEM - General Stated Complaint: HEART CHECKED Time Seen by Provider: 05/10/21 12:06 Source of Information: Reports: Patient, RN, RN Notes Reviewed History Limitations: Reports: No Limitations - History of Present Illness INITIAL COMMENTS - FREE TEXT/NARRATIVE: Sebastian is a 40 y/o male who presents to the ED via personal vehicle with complaints of shortness of breath. The patient reports his shortness of breath began last night while he was laying down with a fan on his face. The patient reports the shortness of breath subsided when he sat up and moved the fan off of his face; he is not currently experiencing shortness of breath. Additionally, he notes an ache is his left upper arm that started this morning. This arm pain, coupled with the shortness of breath last night caused him concern, so he presented here this morning. The patient does note he was hauling large quantities of heavy garbage yesterday, which is not a part of his normal routine. The patient denies recent illness, fever, shaking chills, chest pain, palpitations, nausea vomiting, abdominal pain, dysuria, diarrhea, or hematuria. He denies tobacco, alcohol, or recreational drug use. He has not taken any medications for his symptoms. Left Chest Pain Score (Numeric/FACES): 8 - Related Data Allergies Allergy/AdvReac Type Severity Reaction Status Date / Time Penicillins Allergy Unknown Tachycardia Verified 05/10/21 11:58 tramadol Allergy Other Verified 05/10/21 11:58 Home Meds: Home Meds Acetaminophen [Tylenol Extra Strength] 1,000 mg PO Q12H 11/03/15 [History] Nitroglycerin [Nitrostat] 0.4 mg SL ASDIRECTED PRN 08/02/20 [History] Aspirin [Aspirin EC] 81 mg PO DAILY 08/23/20 [History] Phenytoin Sodium Extended [Dilantin] 100 mg PO BID 08/23/20 [History] Past Medical History - Past Health History Medical/Surgical History: Denies Medical/Surgical History HEENT History: Reports: Impaired Vision Cardiovascular History: Reports: CAD, Hypertension Other Cardiovascular History: Stop taking medication 2 years ago- hypertension had resolved Respiratory History: Reports: None Gastrointestinal History: Reports: None Genitourinary History: Reports: Other (See Below) Other Genitourinary History: hx infection top of kidney on left Musculoskeletal History: Reports: Arthritis, Back Pain, Chronic Neurological History: Reports: Seizure Other Neuro History: last seizure in when he had hemorrhoid surg Psychiatric History: Reports: None Endocrine/Metabolic History: Reports: None Hematologic History: Reports: None Immunologic History: Reports: None Oncologic (Cancer) History: Reports: None Dermatologic History: Reports: Eczema - Infectious Disease History Infectious Disease History: Reports: None - Past Surgical History Head Surgeries/Procedures: Reports: None HEENT Surgical History: Reports: Other (See Below) Other HEENT Surgeries/Procedures: teeth were surgically removed Cardiovascular Surgical History: Reports: None GI Surgical History: Reports: None Social & Family History - Family History Family Medical History: No Pertinent Family History - Tobacco Use Tobacco Use Status *Q: Never Tobacco User - Caffeine Use Caffeine Use: Reports: Coffee, Soda Caffeine Use Comment: 5 cans - Recreational Drug Use Recreational Drug Use: No - Living Situation & Occupation Living situation: Reports: with Family Occupation: Employed ED ROS GENERAL - Review of Systems Review Of Systems: Comprehensive ROS is negative, except as noted in HPI. ED EXAM, GENERAL - Physical Exam Exam: See Below Exam Limited By: No Limitations General Appearance: Alert, No Apparent Distress, Obese Eye Exam: Bilateral Eye: EOMI, Normal Inspection, PERRL (3mm) Ears: Normal External Exam, Normal Canal, Hearing Grossly Normal, Normal TMs Ear Exam: Bilateral Ear: Auricle Normal, Canal Normal, TM normal Nose: Normal Inspection, Normal Mucosa, No Blood Throat/Mouth: Normal Inspection, Normal Oropharynx, Normal Voice, No Airway Compromise Head: Atraumatic, Normocephalic Neck: Normal Inspection, Supple, Non-Tender, Full Range of Motion. No: Lymphadenopathy (L), Lymphadenopathy (R) Respiratory/Chest: No Respiratory Distress, Lungs Clear, Normal Breath Sounds, No Accessory Muscle Use, Chest Non-Tender. No: Crackles, Rales, Rhonchi, Wheezing, Stridor Cardiovascular: Normal Peripheral Pulses, Regular Rate, Rhythm, No Edema, No Gallop, No JVD, No Murmur, No Rub Peripheral Pulses: 2+: Radial (L), Radial (R), Dorsalis Pedis (L), Dorsalis Pedis (R) GI/Abdominal: Normal Bowel Sounds, Soft, Non-Tender, No Distention, No Abnormal Bruit, No Mass, Pelvis Stable (Male) Exam: Deferred Rectal (Males) Exam: Deferred Back Exam: Normal Inspection, Full Range of Motion, NT Extremities: Normal Inspection, Normal Range of Motion, Non-Tender, Normal Capillary Refill, No Pedal Edema Neurological: Alert, Oriented, CN II-XII Intact, Normal Cognition, Normal Gait, No Motor/Sensory Deficits Psychiatric: Normal Affect, Normal Mood Skin Exam: Warm, Dry, Intact, Normal Color, No Rash. No: Cyanosis, Jaundice, Mottled, Pallor #1 Interpretation EKG Date: 05/10/21 Time: 11:46 Rhythm: NSR Rate (Beats/Min): 60 [place]: Normal P-Wave: Present QRS: Normal ST-T: Elevated (Mild elevation in I and II) QT: Normal MA/PQ Interval: 0.122 Comparison: No Change EKG Interpretation Comments: NSR; No evidence of acute myocardial ischemia Course - Vital Signs Last Recorded V/S: Last Vital Signs Temp 98.6 F 05/10/21 11:33 Pulse 64 05/10/21 11:33 Resp 20 05/10/21 11:33 BP 120/72 05/10/21 11:33 Pulse Ox 98 05/10/21 11:33 - Orders/Labs/Meds Labs: Laboratory Tests 05/10/21 05/10/21 05/10/21 Range/Units 11:49 11:49 11:49 WBC 6.2 (5.0-10.0) 10^3/uL RBC 4.78 (4.6-6.2) 10^6/uL Hgb 13.8 L (14.0-18.0) g/dL Hct 42.9 (40.0-54.0) % MCV 89.7 (80-100) fL MCH 28.9 (27.0-34.0) pg MCHC 32.2 L (33.0-35.0) g/dL Plt Count 238 (150-450) 10^3/uL Neut % (Auto) 61.3 (42.2-75.2) % Lymph % (Auto) 24.1 (20.5-50.1) % [place] % (Auto) 8.5 H (2-8) % Eos % (Auto) 5.9 H (1.0-3.0) % Baso % (Auto) 0.2 (0.0-1.0) % Sodium 143 (136-145) mmol/L Potassium 4.1 (3.5-5.1) mmol/L Chloride 107 (98-107) mmol/L Carbon Dioxide 27 (21-32) mmol/L Anion Gap 13.1 H (7-13) mEq/L BUN 9 (7-18) mg/dL Creatinine 0.70 (0.70-1.30) mg/dL Est Cr Clr Drug Dosing 149.40 mL/min Estimated GFR (MDRD) > 60 BUN/Creatinine Ratio 12.9 (No establ ref range) Glucose 107 H (70-99) mg/dL Lactic Acid 1.2 (0.4-2.0) mmol/L Calcium 8.1 L (8.5-10.1) mg/dL Total Bilirubin 0.3 (0.2-1.0) mg/dL AST 20 (15-37) U/L ALT 38 (16-63) U/L Alkaline Phosphatase 124 H (46-116) U/L Troponin I High Sens 5 (<=76) pg/mL C-Reactive Protein 1.4 H (0.0-0.9) mg/dL B-Natriuretic Peptide 18 (0-100) pg/ml Total Protein 6.9 (6.4-8.2) g/dL Albumin 3.2 L (3.4-5.0) g/dL Globulin 3.7 Albumin/Globulin Ratio 0.86 Urine Color (YELLOW) Urine Appearance (CLEAR) Urine pH (5.0-9.0) Ur Specific [place] (1.005-1.030) Urine Protein (NEGATIVE) Urine Glucose (UA) (NEGATIVE) Urine Ketones (NEGATIVE) Urine Occult Blood (NEGATIVE) Urine Nitrite (NEGATIVE) Urine Bilirubin (NEGATIVE) Urine Urobilinogen (0.2-1.0) mg/dL Ur Leukocyte Esterase (NEGATIVE) Urine Opiates Screen (NEGATIVE) Ur Oxycodone Screen (NEGATIVE) Urine Methadone Screen (NEGATIVE) Ur Barbiturates Screen (NEGATIVE) U Tricyclic Antidepress (NEGATIVE) Ur Phencyclidine Scrn (NEGATIVE) Ur Amphetamine Screen (NEGATIVE) U Methamphetamines Scrn (NEGATIVE) Urine MDMA Screen (NEGATIVE) U Benzodiazepines Scrn (NEGATIVE) Urine Cocaine Screen (NEGATIVE) U Marijuana (THC) Screen (NEGATIVE) Ethyl Alcohol < 3 (0) mg/dL 05/10/21 05/10/21 Range/Units 12:50 12:50 WBC (5.0-10.0) 10^3/uL RBC (4.6-6.2) 10^6/uL Hgb (14.0-18.0) g/dL Hct (40.0-54.0) % MCV (80-100) fL MCH (27.0-34.0) pg MCHC (33.0-35.0) g/dL Plt Count (150-450) 10^3/uL Neut % (Auto) (42.2-75.2) % Lymph % (Auto) (20.5-50.1) % [place] % (Auto) (2-8) % Eos % (Auto) (1.0-3.0) % Baso % (Auto) (0.0-1.0) % Sodium (136-145) mmol/L Potassium (3.5-5.1) mmol/L Chloride (98-107) mmol/L Carbon Dioxide (21-32) mmol/L Anion Gap (7-13) mEq/L BUN (7-18) mg/dL Creatinine (0.70-1.30) mg/dL Est Cr Clr Drug Dosing mL/min Estimated GFR (MDRD) BUN/Creatinine Ratio (No establ ref range) Glucose (70-99) mg/dL Lactic Acid (0.4-2.0) mmol/L Calcium (8.5-10.1) mg/dL Total Bilirubin (0.2-1.0) mg/dL AST (15-37) U/L ALT (16-63) U/L Alkaline Phosphatase (46-116) U/L Troponin I High Sens (<=76) pg/mL C-Reactive Protein (0.0-0.9) mg/dL B-Natriuretic Peptide (0-100) pg/ml Total Protein (6.4-8.2) g/dL Albumin (3.4-5.0) g/dL Globulin Albumin/Globulin Ratio Urine Color Dark yellow (YELLOW) Urine Appearance Clear (CLEAR) Urine pH 7.5 (5.0-9.0) Ur Specific [place] 1.025 (1.005-1.030) Urine Protein Negative (NEGATIVE) Urine Glucose (UA) Negative (NEGATIVE) Urine Ketones Negative (NEGATIVE) Urine Occult Blood Negative (NEGATIVE) Urine Nitrite Negative (NEGATIVE) Urine Bilirubin Negative (NEGATIVE) Urine Urobilinogen 0.2 (0.2-1.0) mg/dL Ur Leukocyte Esterase Negative (NEGATIVE) Urine Opiates Screen Negative (NEGATIVE) Ur Oxycodone Screen Negative (NEGATIVE) Urine Methadone Screen Negative (NEGATIVE) Ur Barbiturates Screen Positive H (NEGATIVE) U Tricyclic Antidepress Negative (NEGATIVE) Ur Phencyclidine Scrn Negative (NEGATIVE) Ur Amphetamine Screen Negative (NEGATIVE) U Methamphetamines Scrn Negative (NEGATIVE) Urine MDMA Screen Negative (NEGATIVE) U Benzodiazepines Scrn Negative (NEGATIVE) Urine Cocaine Screen Negative (NEGATIVE) U Marijuana (THC) Screen Negative (NEGATIVE) Ethyl Alcohol (0) mg/dL - Re-Assessments/Exams Free Text/Narrative Re-Assessment/Exam: 05/10/21 Findings of examination, lab work, and imaging reviewed with patient. Discussed supportive cares for prevention of dry mucous membranes at night. Patient instructed to follow up with primary care provider regarding today's visit. Red flag signs and symptoms which would warrant reevaluation reviewed. Patient verbalized understanding and agreement with the plan of care. Departure - Departure Time of Disposition: 13:22 Disposition: Home, Self-Care 01 Condition: Good Clinical Impression: Breathlessness lying flat Instructions: Shortness of Breath, Adult, [id number] Forms: ED Department Discharge Additional Instructions: 1.) Apply petroleum jelly to each nare prior to bed if you sleep with a fan on your face. 2.) Sleep in a room with humidified air. 3.) Follow up with your primary care provider regarding today's visit. Sepsis Event Note (ED) - Evaluation Sepsis Screening Result: No Definite Risk - Focused Exam Vital Signs: Vital Signs Temp Pulse Resp BP Pulse Ox 05/10/21 11:33 98.6 F 64 20 120/72 98
[2021-05-10 12:26] LABS: ANION GAP 13.1 mEq/L (7-13); CHLORIDE,CL 107 mmol/L (98-107); SODIUM,NA 143 mmol/L (136-145)
== END 2021-05-10 13:29 | disposition home or self-care (01) ==
LOC: DL.ED 11:20
DX: R06.81 Apnea, not elsewhere classified (principal); I25.10 Atherosclerotic heart disease of native coronary artery without angina pectoris; I10 Essential (primary) hypertension; M19.90 Unspecified osteoarthritis, unspecified site; Z88.0 Allergy status to penicillin; Z88.5 Allergy status to narcotic agent; Z79.82 Long term (current) use of aspirin; Z79.899 Other long term (current) drug therapy
CPT/HCPCS: 36415; 71045; 80053; 80305-QW; 80307; 81003; 83605; 83880; 84484; 85025; 86140; 93005; 99285-25

== ENCOUNTER 2021-05-13 21:42 | Emergency (ER) | payer MEDICAID ==
[2021-05-13 22:10] VITALS: BP 126/58; PULSE 72
--- NOTE | 2021-05-13 22:29 | EDM.PDOC ---
ED HPI GENERAL MEDICAL PROBLEM - General Chief Complaint: Upper Extremity Injury/Pain Stated Complaint: SORE IN THE ARMPIT Time Seen by Provider: 05/13/21 22:00 Source of Information: Reports: Patient, Old Records, RN, RN Notes Reviewed History Limitations: Reports: No Limitations - History of Present Illness INITIAL COMMENTS - FREE TEXT/NARRATIVE: Octaviano is a 40 y/o male who presents to the ED via personal vehicle for complaints of musculoskeletal pain under his left arm. The patient reports his pain began this evening approximately three hours ago and has maintained in severity over that time. He denies history of injury to the extremity/left chest or recent strenuous activity. He denies loss of motor or sensory function to the area or distal extremity. He denies color changes or edema to the area or distal extremity. He has taken one dose of acetaminophen and placed an ice pack on the area of soreness with mild alleviation in pain. Treatments ELEMENTARY SCHOOL DIRECTOR: Reports: Acetaminophen, Cold Therapy, Other (see below) Other Treatments ELEMENTARY SCHOOL DIRECTOR: per patient report Left Anterior Axillary Pain Score (Numeric/FACES): 9 - Related Data Allergies Allergy/AdvReac Type Severity Reaction Status Date / Time Penicillins Allergy Unknown Tachycardia Verified 05/13/21 22:10 tramadol Allergy Other Verified 05/13/21 22:10 Home Meds: Home Meds Acetaminophen [Tylenol Extra Strength] 1,000 mg PO Q12H 11/03/15 [History] Nitroglycerin [Nitrostat] 0.4 mg SL ASDIRECTED PRN 08/02/20 [History] Aspirin [Aspirin EC] 81 mg PO DAILY 08/23/20 [History] Phenytoin Sodium Extended [Dilantin] 300 mg PO BID 08/23/20 [History] Past Medical History - Past Health History Medical/Surgical History: Denies Medical/Surgical History HEENT History: Reports: Impaired Vision Cardiovascular History: Reports: CAD, Hypertension Other Cardiovascular History: Stop taking medication 2 years ago- hypertension had resolved Respiratory History: Reports: None Gastrointestinal History: Reports: None Genitourinary History: Reports: Other (See Below) Other Genitourinary History: hx infection top of kidney on left Musculoskeletal History: Reports: Arthritis, Back Pain, Chronic Neurological History: Reports: Seizure Other Neuro History: last seizure in when he had hemorrhoid surg Psychiatric History: Reports: None Endocrine/Metabolic History: Reports: None Hematologic History: Reports: None Immunologic History: Reports: None Oncologic (Cancer) History: Reports: None Dermatologic History: Reports: Eczema - Infectious Disease History Infectious Disease History: Reports: None - Past Surgical History Head Surgeries/Procedures: Reports: None HEENT Surgical History: Reports: Other (See Below) Other HEENT Surgeries/Procedures: teeth were surgically removed Cardiovascular Surgical History: Reports: None GI Surgical History: Reports: None Social & Family History - Family History Family Medical History: No Pertinent Family History - Tobacco Use Tobacco Use Status *Q: Never Tobacco User Second Hand Smoke Exposure: No - Caffeine Use Caffeine Use: Reports: Soda Caffeine Use Comment: 5 cans - Recreational Drug Use Recreational Drug Use: No - Living Situation & Occupation Living situation: Reports: with Family Occupation: Employed Review of Systems - Review of Systems Review Of Systems: Comprehensive ROS is negative, except as noted in HPI. ED EXAM, GENERAL - Physical Exam Exam: See Below Exam Limited By: No Limitations General Appearance: Alert, No Apparent Distress, Obese Eye Exam: Bilateral Eye: EOMI, Normal Inspection, PERRL (3mm) Ears: Normal External Exam, Hearing Grossly Normal Nose: Normal Inspection, Normal Mucosa, No Blood Throat/Mouth: Normal Inspection, Normal Oropharynx, Normal Voice, No Airway Compromise Head: Atraumatic, Normocephalic Neck: Normal Inspection, Supple, Non-Tender, Full Range of Motion. No: Lymphadenopathy (L), Lymphadenopathy (R), Tender Lateral, Tender Midline Respiratory/Chest: No Respiratory Distress, Lungs Clear, Normal Breath Sounds, No Accessory Muscle Use, Chest Non-Tender. No: Rhonchi, Wheezing, Stridor, Splinting, Prolonged Expiration Cardiovascular: Normal Peripheral Pulses, Regular Rate, Rhythm, No Edema, No Gallop, No JVD, No Murmur, No Rub Peripheral Pulses: 2+: Radial (L), Radial (R) GI/Abdominal: Normal Bowel Sounds, Non-Tender, No Distention, No Abnormal Bruit, No Mass, Pelvis Stable (Male) Exam: Deferred Rectal (Males) Exam: Deferred Back Exam: Full Range of Motion, Other (Pain to left posterior shoulder) Extremities: No Pedal Edema, Normal Capillary Refill, Arm Pain (To left shoulder, radiates into anterior chest and posterior back), Limited Range of Motion (To left shoulder). No: Joint Swelling, Increased Warmth, Mottled, Pallor, Redness Neurological: Alert, Oriented, CN II-XII Intact, Normal Cognition, Normal Gait, No Motor/Sensory Deficits Psychiatric: Normal Affect, Normal Mood Skin Exam: Warm, Dry, Intact, Normal Color, No Rash. No: Cyanosis, Ecchymosis, Erythema, Jaundice, Mottled, Pallor, Petechiae Lymphatic: No Adenopathy Course - Vital Signs Last Recorded V/S: Last Vital Signs Temp 98.8 F 05/13/21 21:48 Pulse 72 05/13/21 21:48 Resp 20 05/13/21 21:48 BP 126/58 L 05/13/21 21:48 Pulse Ox 98 05/13/21 21:48 - Orders/Labs/Meds Meds: Medications Discontinued Medications Generic Name Dose Route Start Last Admin Trade Name Freq PRN Reason Stop Dose Admin Ibuprofen 400 mg 05/13/21 22:31 05/13/21 22:48 Ibuprofen 400 Mg Tab PO 05/13/21 22:32 400 mg ONETIME ONE Administration - Radiology Interpretation Free Text/Narrative:: [facility] Final Radiology Report Call: [phone] assistance Online chat: [email or web address] Name: OCTAVIANO MENESES Age: 40Years M Date: 05/13/2021 SSN: -- : 1980 Study: CR RIBS 2V WO CHEST LT Requesting Physician: Evie Figueroa Images: 3 Addl Studies: Provided Clinical History: Pain to left lateral anterior and posterior chest Contrast: Contrast Medium: Contrast Amount: Contrast Method: CONFIDENTIALITY STATEMENT This report is intended only for use by the referring physician, and only in accordance with law. If you received this in error, call [phone]. Page 1 of 1 PROCEDURE INFORMATION: Exam: XR Left Ribs Exam date and time: 05/13/2021 11:04 PM Age: 40 years old Clinical indication: Other: No known injury; Additional info: Pain to left lateral anterior and posterior chest TECHNIQUE: Imaging protocol: XR Left ribs. Views: 2 views. COMPARISON: No relevant prior studies available. FINDINGS: Limitations: The left lung apex not included in the field of view. Posterior aspect of left 1st rib is not included in the field of view Bones/joints: No left rib abnormality seen. Lungs: Left lung is clear. Pleural space: No pleural effusion or pneumothorax in the visualized portion of the chest. Soft tissues: There is no soft tissue abnormality seen. IMPRESSION: 1. Limited exam. 2. No abnormality seen Thank you for allowing us to participate in the care of your patient. Dictated and Authenticated by: Jonathan Rao MD 05/14/2021 12:06 AM Central Time ([place] & [place]) [facility] - [facility] Final Radiology Report Call: [phone] assistance Online chat: [email or web address] Name: OCTAVIANO MENESES Age: 40Years M Date: 05/13/2021 SSN: -- : 1980 Study: CR SCAPULA LT Requesting Physician: Evie Figueroa Images: 3 Addl Studies: Provided Clinical History: Pain to anterior and lateral left chest Contrast: Contrast Medium: Contrast Amount: Contrast Method: CONFIDENTIALITY STATEMENT This report is intended only for use by the referring physician, and only in accordance with law. If you received this in error, call [phone]. Page 1 of 1 PROCEDURE INFORMATION: Exam: XR Left Scapula Exam date and time: 05/13/2021 11:07 PM Age: 40 years old Clinical indication: Other: No known trauma; Additional info: Pain to anterior and lateral left chest TECHNIQUE: Imaging protocol: XR Left scapula, complete. COMPARISON: No relevant prior studies available. FINDINGS: Bones/joints: There are mild degenerative changes of the acromioclavicular joint. There is no evidence of acute fracture. There is no subluxation or dislocation. Soft tissues: There is no soft tissue abnormality seen. IMPRESSION: No acute findings. Thank you for allowing us to participate in the care of your patient. Dictated and Authenticated by: Jonathan Rao MD 05/14/2021 12:07 AM Central Time ([place] & [place]) - Re-Assessments/Exams Free Text/Narrative Re-Assessment/Exam: 05/13/21 Findings of examination and imaging reviewed with patient. Will treat weakness and pain to left shoulder with PT. Discussed supportive cares for degenerative changes to AC joint. Patient instructed to follow up with his PCP regarding today's visit. Red flag signs and symptoms which would warrant reevaluation reviewed. Patient verbalized understanding and agreement with the plan of care. 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 You may also take acetaminophen (Tylenol) 650mg every six hours, as pain persists. You may stagger these medications so you are receiving a dose every three hours. 2.) You may alternate heat and ice to the affected area as pain persists. 3.) Follow up with your primary care provider in five to seven days, or sooner should symptoms persist. 4.) Physical Therapy referral placed at [facility]; call early this coming week to set up appointment. Sepsis Event Note (ED) - Evaluation Sepsis Screening Result: No Definite Risk
[2021-05-13] MEDS ORDERED: Ibuprofen 400 MG Tab PO ONE (22:31)
--- NOTE | 2021-05-14 00:07 | CR ---
PROCEDURE INFORMATION: Exam: XR Left Ribs Exam date and time: 05/13/2021 11:04 PM Age: 40 years old Clinical indication: Other: No known injury; Additional info: Pain to left lateral anterior and posterior chest TECHNIQUE: Imaging protocol: XR Left ribs. Views: 2 views. COMPARISON: No relevant prior studies available. FINDINGS: Limitations: The left lung apex not included in the field of view. Posterior aspect of left 1st rib is not included in the field of view Bones/joints: No left rib abnormality seen. Lungs: Left lung is clear. Pleural space: No pleural effusion or pneumothorax in the visualized portion of the chest. Soft tissues: There is no soft tissue abnormality seen. IMPRESSION: 1. Limited exam. 2. No abnormality seen
--- NOTE | 2021-05-14 00:07 | CR ---
PROCEDURE INFORMATION: Exam: XR Left Scapula Exam date and time: 05/13/2021 11:07 PM Age: 40 years old Clinical indication: Other: No known trauma; Additional info: Pain to anterior and lateral left chest TECHNIQUE: Imaging protocol: XR Left scapula, complete. COMPARISON: No relevant prior studies available. FINDINGS: Bones/joints: There are mild degenerative changes of the acromioclavicular joint. There is no evidence of acute fracture. There is no subluxation or dislocation. Soft tissues: There is no soft tissue abnormality seen. IMPRESSION: No acute findings.
== END 2021-05-14 00:36 | disposition home or self-care (01) ==
LOC: DL.ED 21:42
DX: M19.012 Primary osteoarthritis, left shoulder (principal); I25.10 Atherosclerotic heart disease of native coronary artery without angina pectoris; I10 Essential (primary) hypertension; M19.90 Unspecified osteoarthritis, unspecified site; E66.9 Obesity, unspecified; Z88.0 Allergy status to penicillin; Z88.5 Allergy status to narcotic agent; Z79.82 Long term (current) use of aspirin; Z79.899 Other long term (current) drug therapy
CPT/HCPCS: 71100-LT; 73010-LT; 99283-25; A9270-GY

== ENCOUNTER 2021-05-27 21:04 | Emergency (ER) | payer MEDICAID, OTHER ==
--- NOTE | 2021-05-27 21:41 | EDM.PDOC ---
ED HPI GENERAL MEDICAL PROBLEM - General Stated Complaint: LEFT ARM NUMB, SHORTNESS BREATH Time Seen by Provider: 05/27/21 21:25 Source of Information: Reports: Patient History Limitations: Reports: No Limitations - History of Present Illness INITIAL COMMENTS - FREE TEXT/NARRATIVE: This 40 yo male patient reports to the ED with left sided chest pain radiating to his left arm. The patient reports his symptoms started today and have been getting worse throughout the day. The patient has been having intermittent similar episodes over the past couple of years. The patient also reports he has been doing a lot of lifting through his job which may have increased his symptoms. The patient has not had a clinic visit for his current symptoms. Onset: Today Duration: Constant Location: Reports: Chest (left chest wall) Quality: Reports: Ache, Sharp, Stabbing Severity: Moderate Improves with: Reports: None Worsens with: Reports: None Context: Reports: Other Associated Symptoms: Reports: Chest Pain (left anterior chest wall) Treatments TOPSTITCHER LOCKSTITCH: Reports: Acetaminophen - Related Data Allergies Allergy/AdvReac Type Severity Reaction Status Date / Time Penicillins Allergy Unknown Tachycardia Verified 05/13/21 22:10 tramadol Allergy Other Verified 05/13/21 22:10 Home Meds: Home Meds Acetaminophen [Tylenol Extra Strength] 1,000 mg PO Q12H 11/03/15 [History] Nitroglycerin [Nitrostat] 0.4 mg SL ASDIRECTED PRN 08/02/20 [History] Aspirin [Aspirin EC] 81 mg PO DAILY 08/23/20 [History] Phenytoin Sodium Extended [Dilantin] 300 mg PO BID 08/23/20 [History] Past Medical History - Past Health History Medical/Surgical History: Denies Medical/Surgical History HEENT History: Reports: Impaired Vision Cardiovascular History: Reports: CAD, Hypertension Other Cardiovascular History: Stop taking medication 2 years ago- hypertension had resolved Respiratory History: Reports: None Gastrointestinal History: Reports: None Genitourinary History: Reports: Other (See Below) Other Genitourinary History: hx infection top of kidney on left Musculoskeletal History: Reports: Arthritis, Back Pain, Chronic Neurological History: Reports: Seizure Other Neuro History: last seizure in when he had hemorrhoid surg Psychiatric History: Reports: None Endocrine/Metabolic History: Reports: None Hematologic History: Reports: None Immunologic History: Reports: None Oncologic (Cancer) History: Reports: None Dermatologic History: Reports: Eczema - Infectious Disease History Infectious Disease History: Reports: None - Past Surgical History Head Surgeries/Procedures: Reports: None HEENT Surgical History: Reports: Other (See Below) Other HEENT Surgeries/Procedures: teeth were surgically removed Cardiovascular Surgical History: Reports: None GI Surgical History: Reports: None Social & Family History - Family History Family Medical History: No Pertinent Family History - Caffeine Use Caffeine Use: Reports: Soda Caffeine Use Comment: 5 cans - Living Situation & Occupation Living situation: Reports: with Family Occupation: Employed ED ROS GENERAL - Review of Systems Review Of Systems: Comprehensive ROS is negative, except as noted in HPI. ED EXAM, GENERAL - Physical Exam Exam: See Below Exam Limited By: No Limitations General Appearance: Alert, WD/WN, Moderate Distress, Obese Eye Exam: Bilateral Eye: EOMI, Normal Inspection, PERRL Ears: Normal External Exam, Normal Canal, Hearing Grossly Normal, Normal TMs Nose: Normal Inspection, Normal Mucosa, No Blood Throat/Mouth: Normal Inspection, Normal Lips, Normal Teeth, Normal Gums, Normal Oropharynx, Normal Voice, No Airway Compromise Head: Atraumatic, Normocephalic Neck: Normal Inspection, Supple, Non-Tender, Full Range of Motion Respiratory/Chest: No Respiratory Distress, Lungs Clear, Normal Breath Sounds, No Accessory Muscle Use, Other (Tenderness to palplation of left anterior chest wall) Cardiovascular: Normal Peripheral Pulses, Regular Rate, Rhythm, No Edema, No Gallop, No JVD, No Murmur, No Rub GI/Abdominal: Normal Bowel Sounds, Soft, Non-Tender, No Organomegaly, No Distention, No Abnormal Bruit, No Mass (Male) Exam: Deferred Rectal (Males) Exam: Deferred Back Exam: Normal Inspection, Full Range of Motion, NT Extremities: Normal Inspection, Normal Range of Motion, Non-Tender, Normal Capillary Refill, No Pedal Edema Neurological: Alert, Oriented, CN II-XII Intact, Normal Cognition, Normal Gait, Normal Reflexes, No Motor/Sensory Deficits Psychiatric: Normal Affect, Normal Mood Skin Exam: Warm, Dry, Intact, Normal Color, No Rash Lymphatic: No Adenopathy #1 Interpretation EKG Date: 05/27/21 Time: 21:20 Rhythm: NSR Rate (Beats/Min): 66 [place]: Normal P-Wave: Present QRS: Normal ST-T: Normal QT: Normal Comparison: No Change Course - Orders/Labs/Meds Orders: Active Orders 24 hr Category Date Time Status EKG Documentation Completion [RC] STAT Care 05/27/21 21:14 Active Labs: Laboratory Tests 05/27/21 05/27/21 05/27/21 Range/Units 21:23 21:23 21:23 WBC 6.7 (5.0-10.0) 10^3/uL RBC 4.86 (4.6-6.2) 10^6/uL Hgb 14.1 (14.0-18.0) g/dL Hct 43.2 (40.0-54.0) % MCV 88.9 (80-100) fL MCH 29.0 (27.0-34.0) pg MCHC 32.6 L (33.0-35.0) g/dL Plt Count 256 (150-450) 10^3/uL Neut % (Auto) 57.2 (42.2-75.2) % Lymph % (Auto) 25.8 (20.5-50.1) % [place] % (Auto) 10.4 H (2-8) % Eos % (Auto) 6.3 H (1.0-3.0) % Baso % (Auto) 0.3 (0.0-1.0) % D-Dimer, Quantitative (0-400) ng/mL Sodium 143 (136-145) mmol/L Potassium 4.0 (3.5-5.1) mmol/L Chloride 104 (98-107) mmol/L Carbon Dioxide 28 (21-32) mmol/L Anion Gap 15.0 H (7-13) mEq/L BUN 13 (7-18) mg/dL Creatinine 0.82 (0.70-1.30) mg/dL Est Cr Clr Drug Dosing TNP Estimated GFR (MDRD) > 60 BUN/Creatinine Ratio 15.9 (No establ ref range) Glucose 93 (70-99) mg/dL Lactic Acid 0.9 (0.4-2.0) mmol/L Calcium 8.3 L (8.5-10.1) mg/dL Total Bilirubin 0.2 (0.2-1.0) mg/dL AST 27 (15-37) U/L ALT 52 (16-63) U/L Alkaline Phosphatase 118 H (46-116) U/L Troponin I High Sens 4 (<=76) pg/mL Total Protein 7.6 (6.4-8.2) g/dL Albumin 3.6 (3.4-5.0) g/dL Globulin 4.0 Albumin/Globulin Ratio 0.9 07/30/21 Range/Units 21:23 WBC (5.0-10.0) 10^3/uL RBC (4.6-6.2) 10^6/uL Hgb (14.0-18.0) g/dL Hct (40.0-54.0) % MCV (80-100) fL MCH (27.0-34.0) pg MCHC (33.0-35.0) g/dL Plt Count (150-450) 10^3/uL Neut % (Auto) (42.2-75.2) % Lymph % (Auto) (20.5-50.1) % [place] % (Auto) (2-8) % Eos % (Auto) (1.0-3.0) % Baso % (Auto) (0.0-1.0) % D-Dimer, Quantitative < 100 (0-400) ng/mL Sodium (136-145) mmol/L Potassium (3.5-5.1) mmol/L Chloride (98-107) mmol/L Carbon Dioxide (21-32) mmol/L Anion Gap (7-13) mEq/L BUN (7-18) mg/dL Creatinine (0.70-1.30) mg/dL Est Cr Clr Drug Dosing Estimated GFR (MDRD) BUN/Creatinine Ratio (No establ ref range) Glucose (70-99) mg/dL Lactic Acid (0.4-2.0) mmol/L Calcium (8.5-10.1) mg/dL Total Bilirubin (0.2-1.0) mg/dL AST (15-37) U/L ALT (16-63) U/L Alkaline Phosphatase (46-116) U/L Troponin I High Sens (<=76) pg/mL Total Protein (6.4-8.2) g/dL Albumin (3.4-5.0) g/dL Globulin Albumin/Globulin Ratio Meds: Medications Discontinued Medications Generic Name Dose Route Start Last Admin Trade Name Freq PRN Reason Stop Dose Admin Ketorolac Tromethamine 30 mg 05/27/21 22:26 Ketorolac 30 Mg/Ml Sdv IVPUSH 05/27/21 22:27 ONETIME ONE Departure - Departure Time of Disposition: 22:28 Disposition: Home, Self-Care 01 Condition: Fair Clinical Impression: Chest wall pain Sinusitis Qualifiers: Sinusitis location: frontal Chronicity: acute Recurrence: non-recurrent Qualified Code(s): J01.10 - Acute frontal sinusitis, unspecified Instructions: Sinusitis, Adult, [id number], Chest Wall Pain, [id number] Forms: ED Department Discharge Care Plan Goals: The patient was advised of the examination, lab, x-ray and EKG results during the visit. The patient was given an IV dose of Toradol during the visit. The patient was discharged with a script for Toradol (10 mg) #20 to take 1 by mouth every 6 hours and Keflex (500 mg) #30 to take 1 by mouth 3 times per day for 10 days. If the patient has any additional symptoms or concerns, the patient should visit his primary care facility or return to the emergency department. - My Orders Last 24 Hours: My Active Orders 05/27/21 21:14 EKG Documentation Completion [RC] STAT - Assessment/Plan Last 24 Hours: My Active Orders 05/27/21 21:14 EKG Documentation Completion [RC] STAT
[2021-05-27 21:50] LABS: CHLORIDE,CL 104 mmol/L (98-107); SODIUM,NA 143 mmol/L (136-145)
--- NOTE | 2021-05-27 22:16 | CR ---
PROCEDURE INFORMATION: Exam: XR Chest Exam date and time: 05/27/2021 9:39 PM Age: 40 years old Clinical indication: Other: Chest pain TECHNIQUE: Imaging protocol: XR of the chest. Views: 1 view. COMPARISON: CR Chest 1V Frontal 05/10/2021 11:38 AM FINDINGS: Lungs: No suspicious pulmonary nodules or areas of lung consolidation. Pleural spaces: Unremarkable. No pleural effusion. No pneumothorax. Heart/Mediastinum: Unremarkable. No cardiomegaly. Bones/joints: Age appropriate. IMPRESSION: 1. No active disease of the chest. 2. No significant interval change when compared to the CR Chest 1V Frontal 05/10/2021 11:38 AM.
[2021-05-27] MEDS ORDERED: Ketorolac 30 MG/ML SDV IVPUSH ONE (22:26)
[2021-05-27 22:46] VITALS: BP 136/82; PULSE 63
== END 2021-05-27 22:44 | disposition home or self-care (01) ==
LOC: DL.ED 21:04
DX: R07.89 Other chest pain (principal); J01.10 Acute frontal sinusitis, unspecified; I25.10 Atherosclerotic heart disease of native coronary artery without angina pectoris; I10 Essential (primary) hypertension; Z88.0 Allergy status to penicillin; Z88.5 Allergy status to narcotic agent; Z79.82 Long term (current) use of aspirin
CPT/HCPCS: 36415; 71045; 80053; 83605; 84484; 85025; 85379; 93005; 96374; 99285; J1885; 99283

== ENCOUNTER 2021-07-08 19:53 | Emergency (ER) | payer OTHER ==
[2021-07-08 21:01] VITALS: BP 133/74; PULSE 71
--- NOTE | 2021-07-08 23:33 | EDM.PDOC ---
ED HPI GENERAL MEDICAL PROBLEM - General Chief Complaint: ENT Problem Stated Complaint: SORE THROAT, RUNNY NOSE, CHILLS, BODY ACHES Time Seen by Provider: 07/08/21 21:00 Source of Information: Reports: Patient History Limitations: Reports: No Limitations - History of Present Illness INITIAL COMMENTS - FREE TEXT/NARRATIVE: sore throat since this am, no cough, no fever, tried tyleol. Appetite normal. No cough, No SOB Generalized Pain Score (Numeric/FACES): 8 - Related Data Allergies Allergy/AdvReac Type Severity Reaction Status Date / Time Penicillins Allergy Unknown Tachycardia Verified 05/13/21 22:10 tramadol Allergy Other Verified 05/13/21 22:10 Home Meds: Home Meds Acetaminophen [Tylenol Extra Strength] 1,000 mg PO Q12H 11/03/15 [History] Nitroglycerin [Nitrostat] 0.4 mg SL ASDIRECTED PRN 08/02/20 [History] Aspirin [Aspirin EC] 81 mg PO DAILY 08/23/20 [History] Phenytoin Sodium Extended [Dilantin] 300 mg PO BID 08/23/20 [History] Past Medical History - Past Health History Medical/Surgical History: Denies Medical/Surgical History HEENT History: Reports: Impaired Vision Cardiovascular History: Reports: CAD, Hypertension Other Cardiovascular History: Stop taking medication 2 years ago- hypertension had resolved Respiratory History: Reports: None Gastrointestinal History: Reports: None Genitourinary History: Reports: Other (See Below) Other Genitourinary History: hx infection top of kidney on left Musculoskeletal History: Reports: Arthritis, Back Pain, Chronic Neurological History: Reports: Seizure Other Neuro History: last seizure in when he had hemorrhoid surg Psychiatric History: Reports: None Endocrine/Metabolic History: Reports: None Hematologic History: Reports: None Immunologic History: Reports: None Oncologic (Cancer) History: Reports: None Dermatologic History: Reports: Eczema - Infectious Disease History Infectious Disease History: Reports: None - Past Surgical History Head Surgeries/Procedures: Reports: None HEENT Surgical History: Reports: Other (See Below) Other HEENT Surgeries/Procedures: teeth were surgically removed Cardiovascular Surgical History: Reports: None GI Surgical History: Reports: None Social & Family History - Family History Family Medical History: No Pertinent Family History - Tobacco Use Tobacco Use Status *Q: Never Tobacco User Second Hand Smoke Exposure: No - Caffeine Use Caffeine Use: Reports: None Caffeine Use Comment: 5 cans - Recreational Drug Use Recreational Drug Use: No - Living Situation & Occupation Living situation: Reports: with Family Occupation: Employed ED ROS ENT - Review of Systems Review Of Systems: Comprehensive ROS is negative, except as noted in HPI. ED EXAM, ENT - Physical Exam Exam: See Below Exam Limited By: No Limitations General Appearance: Alert, No Apparent Distress Eye Exam: Bilateral Eye: PERRL Ears: Normal External Exam Nose: Normal Inspection Mouth/Throat: Normal Inspection Head: Atraumatic, Normocephalic Neck: Normal Inspection Respiratory/Chest: No Respiratory Distress, Lungs Clear, Normal Breath Sounds Cardiovascular: Normal Peripheral Pulses GI/Abdominal: Normal Bowel Sounds Back: Normal Inspection Extremities: Normal Inspection Neurological: Alert, Oriented, Normal Cognition Psychiatric: Normal Affect Skin: Warm, Dry, Intact, Normal Color Course - Vital Signs Last Recorded V/S: Last Vital Signs Temp 98.3 F 07/08/21 20:59 Pulse 71 07/08/21 20:59 Resp 18 07/08/21 20:59 BP 133/74 07/08/21 20:59 Pulse Ox 98 07/08/21 20:59 - Orders/Labs/Meds Orders: Active Orders 24 hr Category Date Time Status CULTURE STREP A CONFIRMATION [RM] Stat Lab 07/08/21 20:50 Results STREP SCRN A RAPID W CULT CONF [RM] Stat Lab 07/08/21 20:50 Results Labs: Laboratory Tests 07/08/21 Range/Units 20:50 SARS-CoV-2 RNA (FRANDY) Negative (NEGATIVE) Departure - Departure Time of Disposition: 23:31 Disposition: Home, Self-Care 01 Condition: Good Clinical Impression: Sore throat - Discharge Information *PRESCRIPTION DRUG MONITORING PROGRAM REVIEWED*: No *COPY OF PRESCRIPTION DRUG MONITORING REPORT IN PATIENT MARCY: No Instructions: Sore Throat, [id number] Referrals: Mushtaq Tirado MD [Primary Care Provider] - Forms: ED Department Discharge Additional Instructions: tyleol 500mg every 4 hours as needed for discomfort fluids salt water gargle or throat lozenges to help with discomfort follow up if symptoms worsen Sepsis Event Note (ED) - Focused Exam Vital Signs: Vital Signs Temp Pulse Resp BP Pulse Ox 07/08/21 20:59 98.3 F 71 18 133/74 98 - My Orders Last 24 Hours: My Active Orders 07/08/21 20:50 CULTURE STREP A CONFIRMATION [RM] Stat STREP SCRN A RAPID W CULT CONF [RM] Stat - Assessment/Plan Last 24 Hours: My Active Orders 07/08/21 20:50 CULTURE STREP A CONFIRMATION [RM] Stat STREP SCRN A RAPID W CULT CONF [RM] Stat
== END 2021-07-08 23:38 | disposition home or self-care (01) ==
LOC: DL.ED 19:53
DX: J02.9 Acute pharyngitis, unspecified (principal); I25.10 Atherosclerotic heart disease of native coronary artery without angina pectoris; I10 Essential (primary) hypertension; Z88.0 Allergy status to penicillin; Z88.5 Allergy status to narcotic agent; Z79.82 Long term (current) use of aspirin; Z20.822 Contact with and (suspected) exposure to COVID-19
CPT/HCPCS: 87081; 87430; 99283; U0002

== ENCOUNTER 2021-07-14 19:39 | Emergency (ER) | payer OTHER ==
--- NOTE | 2021-07-14 19:59 | EDM.PDOC ---
ED HPI GENERAL MEDICAL PROBLEM - General Chief Complaint: Lower Extremity Injury/Pain Stated Complaint: LEFT TOE IS HARD TO WALK ON IT. Time Seen by Provider: 07/14/21 19:58 Source of Information: Reports: Patient History Limitations: Reports: No Limitations - History of Present Illness INITIAL COMMENTS - FREE TEXT/NARRATIVE: Patient comes emergency department today with complaints of left great toe pain. This patient yesterday developed pain in his left proximal great toe. He has had no injury fall trauma to his left foot. It is getting more swollen red and painful over the past day or so. He has tried some Tylenol with minimal improvement of the pain. The pain is worse with ambulation. It is not hurt constantly. The sheets on the bed do not cause severe pain by just resting on it. He has noticed increased swelling and redness. He has a history of diabetes. - Related Data Allergies Allergy/AdvReac Type Severity Reaction Status Date / Time Penicillins Allergy Unknown Tachycardia Verified 07/14/21 20:05 tramadol Allergy Other Verified 07/14/21 20:05 Home Meds: Home Meds Acetaminophen [Tylenol Extra Strength] 1,000 mg PO Q12H 11/03/15 [History] Nitroglycerin [Nitrostat] 0.4 mg SL ASDIRECTED PRN 08/02/20 [History] Aspirin [Aspirin EC] 81 mg PO DAILY 08/23/20 [History] Phenytoin Sodium Extended [Dilantin] 300 mg PO BID 08/23/20 [History] Past Medical History - Past Health History Medical/Surgical History: Denies Medical/Surgical History HEENT History: Reports: Impaired Vision Cardiovascular History: Reports: CAD, Hypertension Other Cardiovascular History: Stop taking medication 2 years ago- hypertension had resolved Respiratory History: Reports: None Gastrointestinal History: Reports: None Genitourinary History: Reports: Other (See Below) Other Genitourinary History: hx infection top of kidney on left Musculoskeletal History: Reports: Arthritis, Back Pain, Chronic Neurological History: Reports: Seizure Other Neuro History: last seizure in when he had hemorrhoid surg Psychiatric History: Reports: None Endocrine/Metabolic History: Reports: None Hematologic History: Reports: None Immunologic History: Reports: None Oncologic (Cancer) History: Reports: None Dermatologic History: Reports: Eczema - Infectious Disease History Infectious Disease History: Reports: None - Past Surgical History Head Surgeries/Procedures: Reports: None HEENT Surgical History: Reports: Other (See Below) Other HEENT Surgeries/Procedures: teeth were surgically removed Cardiovascular Surgical History: Reports: None GI Surgical History: Reports: None Social & Family History - Family History Family Medical History: No Pertinent Family History - Caffeine Use Caffeine Use: Reports: None Caffeine Use Comment: 5 cans - Living Situation & Occupation Living situation: Reports: with Family Occupation: Employed Review of Systems - Review of Systems Review Of Systems: Comprehensive ROS is negative, except as noted in HPI. ED EXAM, GENERAL - Physical Exam Exam: See Below Exam Limited By: No Limitations General Appearance: Alert, WD/WN, No Apparent Distress, Obese Respiratory/Chest: No Respiratory Distress Cardiovascular: Normal Peripheral Pulses, Regular Rate, Rhythm Peripheral Pulses: 1+: Posterior Tibial (L), Posterior Tibial (R), Dorsalis Pedis (L), Dorsalis Pedis (R) GI/Abdominal: Normal Bowel Sounds, Soft, Non-Tender Back Exam: Normal Inspection Extremities: Other (He is able to flex and extend appropriately at all the joints of the left foot. He is not hyper sensitive to palpation. Other than the scaling and breaks in the skin otherwise unremarkable). No: Normal Inspection (Bilateral lower extremities are superficially scaly with cracks and breaks in the skin pretty much the entirety of his feet and lower distal extremities. There is no discharge. On the MTP joint of the left great toe it is quite swollen reddened and hot. There is no discharge. ) Neurological: Alert, No Motor/Sensory Deficits Lymphatic: No Adenopathy Course - Vital Signs Last Recorded V/S: Last Vital Signs Temp 98 F 07/14/21 19:58 Pulse 68 07/14/21 19:58 Resp 18 07/14/21 19:58 BP 162/94 H 07/14/21 19:58 Pulse Ox 96 07/14/21 19:58 - Orders/Labs/Meds Labs: Laboratory Tests 07/14/21 07/14/21 Range/Units 20:05 20:05 WBC 7.5 (5.0-10.0) 10^3/uL RBC 4.67 (4.6-6.2) 10^6/uL Hgb 13.4 L (14.0-18.0) g/dL Hct 41.8 (40.0-54.0) % MCV 89.5 (80-100) fL MCH 28.7 (27.0-34.0) pg MCHC 32.1 L (33.0-35.0) g/dL Plt Count 244 (150-450) 10^3/uL Neut % (Auto) 53.8 (42.2-75.2) % Lymph % (Auto) 29.4 (20.5-50.1) % Alpine % (Auto) 11.0 H (2-8) % Eos % (Auto) 5.5 H (1.0-3.0) % Baso % (Auto) 0.3 (0.0-1.0) % Sodium 143 (136-145) mmol/L Potassium 4.5 (3.5-5.1) mmol/L Chloride 108 H (98-107) mmol/L Carbon Dioxide 29 (21-32) mmol/L Anion Gap 10.5 (7-13) mEq/L BUN 13 (7-18) mg/dL Creatinine 0.83 (0.70-1.30) mg/dL Est Cr Clr Drug Dosing 124.74 mL/min Estimated GFR (MDRD) > 60 Glucose 155 H (70-99) mg/dL Uric Acid 5.8 (3.5-7.2) mg/dL Calcium 7.9 L (8.5-10.1) mg/dL C-Reactive Protein 1.8 H (0.0-0.9) mg/dL Meds: Medications Discontinued Medications Generic Name Dose Route Start Last Admin Trade Name Freq PRN Reason Stop Dose Admin Cephalexin 500 mg 07/14/21 21:07/14/21 21:17 Cephalexin 500 Mg Cap PO 07/14/21 21:10 500 mg ONETIME ONE Administration Trimethoprim/Sulfamethoxazole 1 tab 07/14/21 21:07/14/21 21:17 Sulfamethoxazole/Trimethoprim 800-160 Mg Tab PO 07/14/21 21:10 1 tab ONETIME ONE Administration - Radiology Interpretation Free Text/Narrative:: X-ray of the left foot initially reviewed extemporaneously by myself. Does not show any acute osseous abnormality. No AVN. No subluxation or dislocation. Question mild swelling at the MTP joint of the left great toe. Radiological review to follow. [facility] Final Radiology Report Call: [phone] assistance Online chat: [email or web address] Name: OCTAVIANO MENESES Age: 41Years M Date: 07/14/2021 SSN: -- : [id number] Study: CR FOOT COMP MIN 3V LT Requesting Physician: LEONIDES WU Images: 3 Addl Studies: Provided Clinical History: left foot injury pain Contrast: Contrast Medium: Contrast Amount: Contrast Method: CONFIDENTIALITY STATEMENT This report is intended only for use by the referring physician, and only in accordance with law. If you received this in error, call [phone]. Page 1 of 1 PROCEDURE INFORMATION: Exam: XR Left Foot Exam date and time: 07/14/2021 8:37 PM Age: 41 years old Clinical indication: Other: Pain known trauma; Additional info: Left foot injury pain TECHNIQUE: Imaging protocol: XR Left foot. Views: 3 or more views. COMPARISON: No relevant prior studies available. FINDINGS: Bones/joints: Normal. Soft tissues: Normal. IMPRESSION: No acute findings. Thank you for allowing us to participate in the care of your patient. Dictated and Authenticated by: Miguel Ángel Banegas MD 07/14/2021 9:59 PM Central Time ([place] & [place]) - Re-Assessments/Exams Free Text/Narrative Re-Assessment/Exam: CBC is rather unremarkable. CMP with a chloride of 108 normal kidney function blood sugar 155. Uric acid 5.8. C-reactive protein minimally elevated at 1.8. With the redness swelling irritation and the break in the skin I am more concerned about a diabetic type foot infection. Unlikely with his history for this to be gout and his uric acid is normal. We will treat him with Keflex 1 tab p.o. 4 times daily for 10 days as well as Bactrim 1 tab p.o. twice daily. He needs a follow-up with primary care in the next 5 days to ensure that he is improving. He is comfortable with this plan his questions are answered. Departure - Departure Time of Disposition: 21:10 Disposition: Home, Self-Care 01 Clinical Impression: Diabetic infection of left foot - Discharge Information Forms: ED Department Discharge Additional Instructions: Tylenol as needed for pain. Try to stay away from NSAIDs like Ibuprofen if at all possible. Cephalexin 1 capsule 4 times a day for the next 10 days. RX given to the patient #40. Bactrim DS, 1 capsule 2 times a day for the next 10 days. RX given to the patient #20. Watch your blood sugars closely the next few days. Return to the ED if new or worsening symptoms. Follow up in the clinic in the next 5-7 days for recheck no matter what. Sepsis Event Note (ED) - Focused Exam Vital Signs: Vital Signs Temp Pulse Resp BP Pulse Ox 07/14/21 19:58 98 F 68 18 162/94 H 96
[2021-07-14 20:04] VITALS: BP 162/94; PULSE 68
[2021-07-14 20:35] LABS: ANION GAP 10.5 mEq/L (7-13); CHLORIDE,CL 108 mmol/L (98-107); SODIUM,NA 143 mmol/L (136-145)
[2021-07-14] MEDS ORDERED: Sulfamethoxazole/Trimethoprim 800-160 MG Tab PO ONE (21:09)
[2021-07-14] MEDS ORDERED: Cephalexin 500 MG Cap PO ONE (21:09)
--- NOTE | 2021-07-14 21:59 | CR ---
PROCEDURE INFORMATION: Exam: XR Left Foot Exam date and time: 07/14/2021 8:37 PM Age: 41 years old Clinical indication: Other: Pain known trauma; Additional info: Left foot injury pain TECHNIQUE: Imaging protocol: XR Left foot. Views: 3 or more views. COMPARISON: No relevant prior studies available. FINDINGS: Bones/joints: Normal. Soft tissues: Normal. IMPRESSION: No acute findings.
== END 2021-07-14 21:20 | disposition home or self-care (01) ==
LOC: DL.ED 19:39
DX: E11.621 Type 2 diabetes mellitus with foot ulcer (principal); L97.529 Non-pressure chronic ulcer of other part of left foot with unspecified severity; I10 Essential (primary) hypertension; I25.10 Atherosclerotic heart disease of native coronary artery without angina pectoris; Z88.0 Allergy status to penicillin; Z88.5 Allergy status to narcotic agent; Z79.82 Long term (current) use of aspirin
CPT/HCPCS: 36415; 73630-LT; 80048; 84550; 85025; 86140; 99283-25; A9270-GY

== ENCOUNTER 2021-10-13 06:59 | Emergency (ER) | payer MEDICAID, OTHER ==
--- NOTE | 2021-10-13 07:36 | EDM.PDOC ---
ED HPI GENERAL MEDICAL PROBLEM - General Chief Complaint: Chest Pain Stated Complaint: HEART ISSUES / HE HAS BEEN DRINKING Time Seen by Provider: 10/13/21 07:33 Source of Information: Reports: Patient, EMS, Old Records, RN, RN Notes Reviewed History Limitations: Reports: Intoxication - History of Present Illness INITIAL COMMENTS - FREE TEXT/NARRATIVE: Octaviano is a 41 y/o male who presents to the ED via personal vehicle with complaints of chest pain. The patient reports his pain has been ongoing for approximately three weeks, however today upon awakening it was worse that in has been. He characterizes the pain as a sharp burn that originates in his midsternal chest and radiates into his left shoulder. Additionally, he notes dry cough, shortness of breath, indigestion, and the sensation of a food bolus stuck in his esophagus. He states he has had the bolus sensation for approximately two weeks despite attempting to drink large volumes of water. He denies fever, shaking chills, vision changes, dizziness, palpitations, nausea, vomiting, or abdominal pain. He denies changes to his bowel or bladder patterns. He denies changes to his diet and has been drinking and eating per his normal routine. The patient denies tobacco, alcohol, or recreational drug use. He has taken one dose of Nitro SL for his pain upon awakening this morning which he feels did not provide alleviation of symptoms. Left Chest Pain Score (Numeric/FACES): 9 - Related Data Allergies Allergy/AdvReac Type Severity Reaction Status Date / Time Penicillins Allergy Unknown Tachycardia Verified 10/13/21 07:20 tramadol Allergy Other Verified 10/13/21 07:20 Home Meds: Home Meds Acetaminophen [Tylenol Extra Strength] 1,000 mg PO Q12H 11/03/15 [History] Nitroglycerin [Nitrostat] 0.4 mg SL ASDIRECTED PRN 08/02/20 [History] Aspirin [Aspirin EC] 81 mg PO DAILY 08/23/20 [History] Phenytoin Sodium Extended [Dilantin] 300 mg PO BID 08/23/20 [History] Past Medical History - Past Health History Medical/Surgical History: Denies Medical/Surgical History HEENT History: Reports: Impaired Vision Cardiovascular History: Reports: CAD, Hypertension Other Cardiovascular History: Stop taking medication 2 years ago- hypertension had resolved Respiratory History: Reports: None Gastrointestinal History: Reports: None Genitourinary History: Reports: Other (See Below) Other Genitourinary History: hx infection top of kidney on left Musculoskeletal History: Reports: Arthritis, Back Pain, Chronic Neurological History: Reports: Seizure Other Neuro History: last seizure in when he had hemorrhoid surg Psychiatric History: Reports: None Endocrine/Metabolic History: Reports: Diabetes, Type II Hematologic History: Reports: None Immunologic History: Reports: None Oncologic (Cancer) History: Reports: None Dermatologic History: Reports: Eczema - Infectious Disease History Infectious Disease History: Reports: None - Past Surgical History Head Surgeries/Procedures: Reports: None HEENT Surgical History: Reports: Other (See Below) Other HEENT Surgeries/Procedures: teeth were surgically removed Cardiovascular Surgical History: Reports: None GI Surgical History: Reports: None Social & Family History - Family History Family Medical History: No Pertinent Family History - Tobacco Use Tobacco Use Status *Q: Current Every Day Tobacco User Years of Tobacco use: 7 Packs/Tins Daily: 0.2 Second Hand Smoke Exposure: Yes - Caffeine Use Caffeine Use: Reports: None Caffeine Use Comment: 5 cans - Recreational Drug Use Recreational Drug Use: No - Living Situation & Occupation Living situation: Reports: with Family Occupation: Employed ED ROS GENERAL - Review of Systems Review Of Systems: Comprehensive ROS is negative, except as noted in HPI. ED EXAM, GENERAL - Physical Exam Exam: See Below Exam Limited By: No Limitations General Appearance: Alert, Mild Distress (Chest pain), Obese Eye Exam: Bilateral Eye: EOMI, Normal Inspection, PERRL (3mm) Ears: Normal External Exam, Normal Canal, Hearing Grossly Normal, Normal TMs Nose: Normal Inspection, Normal Mucosa, No Blood Throat/Mouth: Normal Inspection, Normal Lips, Normal Gums, Normal Oropharynx, Normal Voice, No Airway Compromise. No: Normal Teeth (Poor dentition) Head: Atraumatic, Normocephalic Neck: Normal Inspection, Supple, Non-Tender, Full Range of Motion. No: Lymphadenopathy (L), Lymphadenopathy (R) Respiratory/Chest: No Respiratory Distress, Lungs Clear, Normal Breath Sounds, No Accessory Muscle Use, Chest Non-Tender. No: Crackles, Rales, Rhonchi, Wheezing, Stridor Cardiovascular: Normal Peripheral Pulses, Regular Rate, Rhythm, No Edema, No Gallop, No JVD, No Murmur, No Rub Peripheral Pulses: 2+: Radial (L), Radial (R) GI/Abdominal: Normal Bowel Sounds, Soft, Non-Tender, No Distention, No Abnormal Bruit, No Mass, Pelvis Stable. No: Guarding, Rigid, Rebound (Male) Exam: Deferred Rectal (Males) Exam: Deferred Back Exam: Normal Inspection, Full Range of Motion Extremities: Normal Inspection, Normal Range of Motion, Non-Tender, Normal Capillary Refill, No Pedal Edema Neurological: Alert, Oriented, CN II-XII Intact, Normal Cognition, Normal Gait, Normal Reflexes, No Motor/Sensory Deficits Psychiatric: Normal Affect, Normal Mood Skin Exam: Warm, Dry, Intact, Normal Color, No Rash #1 Interpretation EKG Date: 10/13/21 Time: 07:25 Rhythm: NSR Rate (Beats/Min): 73 [place]: Normal P-Wave: Present QRS: Normal ST-T: Normal QT: Normal CT/PQ Interval: 0.126 Comparison: No Change EKG Interpretation Comments: NSR; q-wave in III; No evidence of acute myocardial ischemia Course - Vital Signs Last Recorded V/S: Last Vital Signs Temp 98.7 F 10/13/21 07:12 Pulse 83 10/13/21 07:12 Resp 18 10/13/21 07:12 BP 128/90 10/13/21 07:12 Pulse Ox 96 10/13/21 07:12 - Orders/Labs/Meds Labs: Laboratory Tests 10/13/21 10/13/21 10/13/21 Range/Units 07:25 07:25 07:33 WBC 7.8 (5.0-10.0) 10^3/uL RBC 5.09 (4.6-6.2) 10^6/uL Hgb 14.5 (14.0-18.0) g/dL Hct 44.8 (40.0-54.0) % MCV 88.0 (80-100) fL MCH 28.5 (27.0-34.0) pg MCHC 32.4 L (33.0-35.0) g/dL Plt Count 267 (150-450) 10^3/uL Neut % (Auto) 56.4 (42.2-75.2) % Lymph % (Auto) 27.1 (20.5-50.1) % [place] % (Auto) 10.6 H (2-8) % Eos % (Auto) 5.8 H (1.0-3.0) % Baso % (Auto) 0.1 (0.0-1.0) % Sodium (136-145) mmol/L Potassium (3.5-5.1) mmol/L Chloride (98-107) mmol/L Carbon Dioxide (21-32) mmol/L Anion Gap (7-13) mEq/L BUN (7-18) mg/dL Creatinine (0.70-1.30) mg/dL Est Cr Clr Drug Dosing Estimated GFR (MDRD) BUN/Creatinine Ratio (No establ ref range) Glucose (70-99) mg/dL Lactic Acid (0.4-2.0) mmol/L Calcium (8.5-10.1) mg/dL Magnesium (1.8-2.4) mg/dL Total Bilirubin (0.2-1.0) mg/dL AST (15-37) U/L ALT (16-63) U/L Alkaline Phosphatase (46-116) U/L Troponin I High Sens (<=76) pg/mL C-Reactive Protein (0.0-0.9) mg/dL B-Natriuretic Peptide (0-100) pg/ml Total Protein (6.4-8.2) g/dL Albumin (3.4-5.0) g/dL Globulin Albumin/Globulin Ratio Amylase (25-115) U/L Lipase (73-393) U/L Urine Color Yellow (YELLOW) Urine Appearance Clear (CLEAR) Urine pH 6.0 (5.0-9.0) Ur Specific [place] 1.025 (1.005-1.030) Urine Protein Negative (NEGATIVE) Urine Glucose (UA) Negative (NEGATIVE) Urine Ketones Negative (NEGATIVE) Urine Occult Blood Negative (NEGATIVE) Urine Nitrite Negative (NEGATIVE) Urine Bilirubin Negative (NEGATIVE) Urine Urobilinogen 0.2 (0.2-1.0) mg/dL Ur Leukocyte Esterase Negative (NEGATIVE) Urine Opiates Screen Negative (NEGATIVE) Ur Oxycodone Screen Negative (NEGATIVE) Urine Methadone Screen Negative (NEGATIVE) Ur Barbiturates Screen Negative (NEGATIVE) U Tricyclic Antidepress Negative (NEGATIVE) Ur Phencyclidine Scrn Negative (NEGATIVE) Ur Amphetamine Screen Negative (NEGATIVE) U Methamphetamines Scrn Negative (NEGATIVE) Urine MDMA Screen Negative (NEGATIVE) U Benzodiazepines Scrn Negative (NEGATIVE) Urine Cocaine Screen Negative (NEGATIVE) U Marijuana (THC) Screen Negative (NEGATIVE) Ethyl Alcohol (0) mg/dL 10/13/21 10/13/21 Range/Units 07:33 07:33 WBC (5.0-10.0) 10^3/uL RBC (4.6-6.2) 10^6/uL Hgb (14.0-18.0) g/dL Hct (40.0-54.0) % MCV (80-100) fL MCH (27.0-34.0) pg MCHC (33.0-35.0) g/dL Plt Count (150-450) 10^3/uL Neut % (Auto) (42.2-75.2) % Lymph % (Auto) (20.5-50.1) % [place] % (Auto) (2-8) % Eos % (Auto) (1.0-3.0) % Baso % (Auto) (0.0-1.0) % Sodium 142 (136-145) mmol/L Potassium 4.0 (3.5-5.1) mmol/L Chloride 104 (98-107) mmol/L Carbon Dioxide 28 (21-32) mmol/L Anion Gap 14.0 H (7-13) mEq/L BUN 15 (7-18) mg/dL Creatinine 0.96 (0.70-1.30) mg/dL Est Cr Clr Drug Dosing TNP Estimated GFR (MDRD) > 60 BUN/Creatinine Ratio 15.6 (No establ ref range) Glucose 113 H (70-99) mg/dL Lactic Acid 1.0 (0.4-2.0) mmol/L Calcium 8.2 L (8.5-10.1) mg/dL Magnesium 2.1 (1.8-2.4) mg/dL Total Bilirubin 0.2 (0.2-1.0) mg/dL AST 25 (15-37) U/L ALT 54 (16-63) U/L Alkaline Phosphatase 136 H (46-116) U/L Troponin I High Sens 5 (<=76) pg/mL C-Reactive Protein 1.7 H (0.0-0.9) mg/dL B-Natriuretic Peptide 6 (0-100) pg/ml Total Protein 7.4 (6.4-8.2) g/dL Albumin 3.5 (3.4-5.0) g/dL Globulin 3.9 Albumin/Globulin Ratio 0.9 Amylase 48 (25-115) U/L Lipase 84 (73-393) U/L Urine Color (YELLOW) Urine Appearance (CLEAR) Urine pH (5.0-9.0) Ur Specific [place] (1.005-1.030) Urine Protein (NEGATIVE) Urine Glucose (UA) (NEGATIVE) Urine Ketones (NEGATIVE) Urine Occult Blood (NEGATIVE) Urine Nitrite (NEGATIVE) Urine Bilirubin (NEGATIVE) Urine Urobilinogen (0.2-1.0) mg/dL Ur Leukocyte Esterase (NEGATIVE) Urine Opiates Screen (NEGATIVE) Ur Oxycodone Screen (NEGATIVE) Urine Methadone Screen (NEGATIVE) Ur Barbiturates Screen (NEGATIVE) U Tricyclic Antidepress (NEGATIVE) Ur Phencyclidine Scrn (NEGATIVE) Ur Amphetamine Screen (NEGATIVE) U Methamphetamines Scrn (NEGATIVE) Urine MDMA Screen (NEGATIVE) U Benzodiazepines Scrn (NEGATIVE) Urine Cocaine Screen (NEGATIVE) U Marijuana (THC) Screen (NEGATIVE) Ethyl Alcohol < 3 (0) mg/dL Meds: Medications Discontinued Medications Generic Name Dose Route Start Last Admin Trade Name Freq PRN Reason Stop Dose Admin Pantoprazole Sodium 40 mg 10/13/21 08:09 10/13/21 08:14 Pantoprazole 40 Mg Vial IVPUSH 10/13/21 08:10 40 mg ONETIME ONE Administration - Radiology Interpretation Free Text/Narrative:: [facility] Final Radiology Report Call: [phone] assistance Online chat: [email or web address] Name: OCTAVIANO MENESES Age: 41Years M Date: 10/13/2021 SSN: -- : [id number] Study: CR CHEST 1V FRONTAL Requesting Physician: Evie Figueroa Images: 1 Addl Studies: Provided Clinical History: Chest pain Contrast: Contrast Medium: Contrast Amount: Contrast Method: CONFIDENTIALITY STATEMENT This report is intended only for use by the referring physician, and only in accordance with law. If you received this in error, call [phone]. Page 1 of 1 PROCEDURE INFORMATION: Exam: XR Chest Exam date and time: 10/13/2021 7:51 AM Age: 41 years old Clinical indication: Chest wall pain; Additional info: Chest pain TECHNIQUE: Imaging protocol: XR of the chest. Views: 1 view. COMPARISON: CR Chest 1V Frontal 05/27/2021 9:39 PM FINDINGS: Lungs: Unremarkable. No consolidation. Pleural spaces: Unremarkable. No pleural effusion. No pneumothorax. Heart/Mediastinum: Unremarkable. No cardiomegaly. Bones/joints: Unremarkable. IMPRESSION: No acute findings. Chest within normal limits. No interval change since the previous chest radiograph from 05/27/2021. Thank you for allowing us to participate in the care of your patient. Dictated and Authenticated by: Leonel Tran MD 10/13/2021 8:19 AM Central Time ([place] & [place]) - Re-Assessments/Exams Free Text/Narrative Re-Assessment/Exam: 10/13/21 Pantoprazole 40mg IVP administered while EKG, CXR, and labs pending. Patient verbalized complete resolution of pain following medication administration. Will treat GERD with omeprazole 20mg QD with plan for follow up with PCP following course. Findings of examination, lab work, and imaging reviewed with patient. Supportive cares for GERD discussed. Red flag signs and symptoms which would warrant immediate reevaluation reviewed. Patient verbalized understanding and agreement with the plan of care. Departure - Departure Time of Disposition: 08:49 Disposition: Home, Self-Care 01 Condition: Good Clinical Impression: GERD without esophagitis Instructions: Food Choices for Gastroesophageal Reflux Disease, Adult Forms: ED Department Discharge Additional Instructions: Rx: omeprazole 20mg (#20) 1.) Start your omeprazole tomorrow and continue daily for the next 14 day, follow up with your primary care provider following course. 2.) Should your symptoms return despite medications, follow up with your primary care provider sooner. 3.) Eat a bland diet, avoiding spicy, greasy, acidic foods. 4.) Drink plenty of water to stay hydrated. 5.) Continue with your previously prescribed medications.
[2021-10-13 08:08] LABS: AMPHETAMINES,URINE NEGATIVE (NEGATIVE); BARBITURATES,URINE NEGATIVE (NEGATIVE); BENZODIAZEPINE,URINE NEGATIVE (NEGATIVE); MDMA (ECSTASY), URINE NEGATIVE (NEGATIVE); METHADONE,URINE NEGATIVE (NEGATIVE); METHAMPHETAMINES,URINE NEGATIVE (NEGATIVE); OPIATES,URINE NEGATIVE (NEGATIVE); OXYCODONE,URINE NEGATIVE (NEGATIVE); PHENCYCLIDINE,URINE NEGATIVE (NEGATIVE); TCA,URINE NEGATIVE (NEGATIVE)
[2021-10-13] MEDS ORDERED: Pantoprazole 40 MG Vial IVPUSH ONE (08:09)
[2021-10-13 08:11] LABS: CHLORIDE,CL 104 mmol/L (98-107); SODIUM,NA 142 mmol/L (136-145)
--- NOTE | 2021-10-13 08:19 | CR ---
PROCEDURE INFORMATION: Exam: XR Chest Exam date and time: 10/13/2021 7:51 AM Age: 41 years old Clinical indication: Chest wall pain; Additional info: Chest pain TECHNIQUE: Imaging protocol: XR of the chest. Views: 1 view. COMPARISON: CR Chest 1V Frontal 05/27/2021 9:39 PM FINDINGS: Lungs: Unremarkable. No consolidation. Pleural spaces: Unremarkable. No pleural effusion. No pneumothorax. Heart/Mediastinum: Unremarkable. No cardiomegaly. Bones/joints: Unremarkable. IMPRESSION: No acute findings. Chest within normal limits. No interval change since the previous chest radiograph from 05/27/2021.
[2021-10-13 08:59] VITALS: BP 128/90; PULSE 83
== END 2021-10-13 09:02 | disposition home or self-care (01) ==
LOC: DL.ED 06:59
DX: K21.9 Gastro-esophageal reflux disease without esophagitis (principal); I25.10 Atherosclerotic heart disease of native coronary artery without angina pectoris; I10 Essential (primary) hypertension; E11.9 Type 2 diabetes mellitus without complications; Z88.0 Allergy status to penicillin; Z88.5 Allergy status to narcotic agent; Z79.82 Long term (current) use of aspirin; Z72.0 Tobacco use
CPT/HCPCS: 36415; 71045; 80053; 80305-QW; 80307; 81003; 82150; 83605; 83690; 83735; 83880; 84484; 85025; 86140; 93005; 96374; 99285-25; C9113

== ENCOUNTER 2021-11-12 22:00 | Emergency (ER) | payer SELFPAY ==
[2021-11-12] MEDS ORDERED: Sodium Chloride 0.9% 10 ML Syringe FLUSH PRN (22:23)
[2021-11-12 22:36] VITALS: BP 118/108; PULSE 95
[2021-11-12 22:56] LABS: ANION GAP 14.9 mEq/L (7-13); CHLORIDE,CL 103 mmol/L (98-107); SODIUM,NA 141 mmol/L (136-145)
== END 2021-11-12 23:55 | disposition home or self-care (01) ==
LOC: DL.ED 22:00
DX: R07.89 Other chest pain (principal); I25.10 Atherosclerotic heart disease of native coronary artery without angina pectoris; I10 Essential (primary) hypertension; M19.90 Unspecified osteoarthritis, unspecified site; E11.9 Type 2 diabetes mellitus without complications; Z88.0 Allergy status to penicillin; Z88.5 Allergy status to narcotic agent; Z79.82 Long term (current) use of aspirin; Z79.899 Other long term (current) drug therapy
CPT/HCPCS: 36415; 71045; 80053; 82150; 83690; 83735; 83880; 84443; 84484; 85025; 85379; 85651; 86140; 93005; 99285-25

== ENCOUNTER 2021-12-14 13:48 | Emergency (ER) | payer MEDICAID ==
[2021-12-14 14:36] VITALS: BP 113/81; PULSE 73
[2021-12-14 16:00] LABS: ANION GAP 14.1 mEq/L (7-13); CHLORIDE,CL 106 mmol/L (98-107); SODIUM,NA 141 mmol/L (136-145)
== END 2021-12-14 16:34 | disposition home or self-care (01) ==
LOC: DL.ED 13:48
DX: R07.89 Other chest pain (principal); I25.10 Atherosclerotic heart disease of native coronary artery without angina pectoris; I10 Essential (primary) hypertension; E11.9 Type 2 diabetes mellitus without complications; Z87.891 Personal history of nicotine dependence; Z88.0 Allergy status to penicillin; Z88.5 Allergy status to narcotic agent; Z79.82 Long term (current) use of aspirin
CPT/HCPCS: 36415; 71045; 80053; 82150; 83690; 84484; 85025; 93005; 99285-25

== ENCOUNTER 2022-02-16 06:07 | Emergency (ER) | payer MEDICAID ==
[2022-02-16 06:44] VITALS: BP 128/75; PULSE 65
[2022-02-16] MEDS ORDERED: Sodium Chloride 0.9% 10 ML Syringe FLUSH PRN (06:55)
[2022-02-16] MEDS ORDERED: Iopamidol 612 MG/ML 100 ML Bottle IVPUSH ONE (07:01)
[2022-02-16 07:35] LABS: AMPHETAMINES,URINE NEGATIVE (NEGATIVE); BARBITURATES,URINE POSITIVE (NEGATIVE); BENZODIAZEPINE,URINE NEGATIVE (NEGATIVE); MDMA (ECSTASY), URINE NEGATIVE (NEGATIVE); METHADONE,URINE NEGATIVE (NEGATIVE); METHAMPHETAMINES,URINE NEGATIVE (NEGATIVE); OPIATES,URINE NEGATIVE (NEGATIVE); OXYCODONE,URINE NEGATIVE (NEGATIVE); PHENCYCLIDINE,URINE NEGATIVE (NEGATIVE); TCA,URINE NEGATIVE (NEGATIVE)
[2022-02-16 07:44] LABS: ANION GAP 15.7 mEq/L (7-13); CHLORIDE,CL 106 mmol/L (98-107); SODIUM,NA 141 mmol/L (136-145)
[2022-02-16 08:35] LABS: CORONAVIRUS COVID-19 NAA NEGATIVE (NEGATIVE)
== END 2022-02-16 09:50 | disposition home or self-care (01) ==
LOC: DL.ED 06:07
DX: R07.9 Chest pain, unspecified (principal); J01.10 Acute frontal sinusitis, unspecified; I25.10 Atherosclerotic heart disease of native coronary artery without angina pectoris; I10 Essential (primary) hypertension; E11.9 Type 2 diabetes mellitus without complications; Z79.899 Other long term (current) drug therapy; Z79.82 Long term (current) use of aspirin; Z88.0 Allergy status to penicillin; Z88.5 Allergy status to narcotic agent; Z20.822 Contact with and (suspected) exposure to COVID-19
CPT/HCPCS: 0240U; 36415; 70491; 71045; 80053; 80305; 81003; 83605; 83735; 84484; 85025; 85379; 99285; J3490; Q9967

== ENCOUNTER 2022-03-12 18:40 | Emergency (ER) | payer MEDICAID ==
[2022-03-12 20:10] LABS: ANION GAP 15.8 mEq/L (7-13); CHLORIDE,CL 108 mmol/L (98-107); SODIUM,NA 142 mmol/L (136-145)
[2022-03-12 20:32] VITALS: BP 121/83; PULSE 64
== END 2022-03-12 21:14 | disposition home or self-care (01) ==
LOC: DL.ED 18:40
DX: R07.89 Other chest pain (principal); I25.10 Atherosclerotic heart disease of native coronary artery without angina pectoris; I10 Essential (primary) hypertension; E11.9 Type 2 diabetes mellitus without complications; Z88.0 Allergy status to penicillin; Z88.5 Allergy status to narcotic agent
CPT/HCPCS: 36415; 71045; 80053; 83690; 84484; 85025; 93005; 93010; 99283; 99285-25

== ENCOUNTER 2022-03-13 22:46 | Inpatient (IN) | payer MEDICAID ==
[2022-03-13 23:43] LABS: ANION GAP 15.1 mEq/L (7-13); CHLORIDE,CL 107 mmol/L (98-107); SODIUM,NA 142 mmol/L (136-145)
[2022-03-13] MEDS ORDERED: Iopamidol 612 MG/ML 100 ML Bottle IVPUSH ONE (23:51)
[2022-03-13] MEDS ORDERED: Sodium Chloride 0.9% 1,000 ML IV ONE (23:52)
[2022-03-14] MEDS ORDERED: HYDROmorphone 0.5 MG/0.5 ML Syringe IVPUSH ONE (00:49)
[2022-03-14] MEDS ORDERED: HYDROmorphone 1 MG/ML Syringe IVPUSH ONE (01:43)
[2022-03-14] MEDS ORDERED: Benzocaine 20% Oral Spray 59.2 ML Canister MUCMEM ONE (01:45)
[2022-03-14] MEDS ORDERED: Lidocaine 2% Jelly 10 ML Urojet MUCMEM ONE (01:48)
[2022-03-14] MEDS ORDERED: Benzocaine 20% Topical Spray UD ONE (01:51)
[2022-03-14] MEDS ORDERED: Acetaminophen 325 MG Tab PO PRN (03:16)
[2022-03-14] MEDS ORDERED: HYDROmorphone 0.5 MG/0.5 ML Syringe IVPUSH PRN (03:16)
[2022-03-14] MEDS ORDERED: Albuterol/Ipratropium 3.0-0.5 MG/3 ML Neb Soln NEB PRN (03:16)
[2022-03-14] MEDS ORDERED: Ketorolac 30 MG/ML SDV IVPUSH PRN (03:16)
[2022-03-14] MEDS ORDERED: Metoclopramide 10 MG/2 ML SDV IVPUSH PRN (03:19)
[2022-03-14] MEDS ORDERED: Dextrose 5%-0.45% NaCl 1,000 ML IV SCH (03:30)
[2022-03-14] MEDS ORDERED: LORazepam 2 MG/ML SDV IVPUSH PRN (03:42)
[2022-03-14] MEDS ORDERED: Flumazenil 0.1 MG/ML 5 ML MDV IVPUSH PRN (03:42)
[2022-03-14] MEDS ORDERED: hydrALAZINE 20 MG/ML SDV IVPUSH PRN (03:43)
[2022-03-14] MEDS ORDERED: Metoprolol Tartrate 5 MG/5 ML SDV IVPUSH PRN (03:43)
[2022-03-14 03:54] LABS: AMPHETAMINES,URINE NEGATIVE (NEGATIVE); BARBITURATES,URINE POSITIVE (NEGATIVE); BENZODIAZEPINE,URINE NEGATIVE (NEGATIVE); MDMA (ECSTASY), URINE NEGATIVE (NEGATIVE); METHADONE,URINE NEGATIVE (NEGATIVE); METHAMPHETAMINES,URINE NEGATIVE (NEGATIVE); OPIATES,URINE NEGATIVE (NEGATIVE); OXYCODONE,URINE NEGATIVE (NEGATIVE); PHENCYCLIDINE,URINE NEGATIVE (NEGATIVE); TCA,URINE NEGATIVE (NEGATIVE)
[2022-03-14] MEDS ORDERED: 50% Dextrose in Water 50 ML Syringe IVPUSH PRN (12:59)
[2022-03-14 16:40] VITALS: BP 138/86; PULSE 64
[2022-03-14] MEDS ORDERED: Insulin Lispro 100 Units/ML 3 ML Vial SUBCUT SCH (18:00)
[2022-03-14] MEDS ORDERED: Phenytoin 100 MG Cap.ER PO SCH (21:00)
[2022-03-15] MEDS ORDERED: Pantoprazole 40 MG Tab.CR PO SCH (13:00)
== END 2022-03-14 17:45 | disposition home or self-care (01) | DRG 389 ==
LOC: DL.ED 22:46 → DL.MS 03-14 02:46
PROVIDERS: ADMIT Internal Medicine; ATTEND Internal Medicine
PROC: 0D9670Z Drainage of Stomach with Drainage Device, Via Natural or Artificial Opening (ICD-10-PCS; principal; 2022-03-14)
DX: K56.7 Ileus, unspecified (principal); Z68.42 Body mass index [BMI] 45.0-49.9, adult; K21.9 Gastro-esophageal reflux disease without esophagitis; E11.65 Type 2 diabetes mellitus with hyperglycemia; E66.01 Morbid (severe) obesity due to excess calories; G40.909 Epilepsy, unspecified, not intractable, without status epilepticus; I10 Essential (primary) hypertension; Z20.822 Contact with and (suspected) exposure to COVID-19; G89.29 Other chronic pain; K59.00 Constipation, unspecified; M54.9 Dorsalgia, unspecified; F41.9 Anxiety disorder, unspecified; I25.10 Atherosclerotic heart disease of native coronary artery without angina pectoris; M19.90 Unspecified osteoarthritis, unspecified site; Z88.0 Allergy status to penicillin; Z88.8 Allergy status to other drugs, medicaments and biological substances
CPT/HCPCS: 36415; 71045; 74018; 74177; 80053; 80305-QW; 82150; 83605; 83690; 85025; 96361; 96374; 96376; 99284; 99285-25; J1170; J1885; J7030; J7042; Q9967; U0002

== ENCOUNTER 2022-04-01 18:05 | Emergency (ER) | payer MEDICAID ==
[2022-04-01] MEDS ORDERED: Acetaminophen/HYDROcodone 325-10 MG Tab PO ONE (18:06)
[2022-04-01] MEDS ORDERED: Cyclobenzaprine 10 MG Tab PO ONE (18:06)
[2022-04-01 18:28] VITALS: BP 112/72; PULSE 78
[2022-04-01] MEDS ORDERED: Acetaminophen/HYDROcodone 325-10 MG Tab ONE (19:41)
[2022-04-01] MEDS ORDERED: Cyclobenzaprine 10 MG Tab ONE (19:42)
== END 2022-04-01 19:52 | disposition home or self-care (01) ==
LOC: DL.ED 18:05
DX: M54.41 Lumbago with sciatica, right side (principal); M62.830 Muscle spasm of back; I25.10 Atherosclerotic heart disease of native coronary artery without angina pectoris; I10 Essential (primary) hypertension; E11.9 Type 2 diabetes mellitus without complications; Z88.0 Allergy status to penicillin; Z88.5 Allergy status to narcotic agent
CPT/HCPCS: 99283; A9270

== ENCOUNTER 2022-04-26 20:55 | Emergency (ER) | payer MEDICAID ==
[2022-04-26 22:09] LABS: ANION GAP 11.9 mEq/L (7-13)
[2022-04-26] MEDS ORDERED: Cephalexin 500 MG Cap PO ONE (22:35)
[2022-04-26 23:10] VITALS: BP 109/72; PULSE 62
== END 2022-04-26 22:45 | disposition home or self-care (01) ==
LOC: DL.ED 20:55
DX: R07.89 Other chest pain (principal); J01.00 Acute maxillary sinusitis, unspecified; E11.9 Type 2 diabetes mellitus without complications; I25.10 Atherosclerotic heart disease of native coronary artery without angina pectoris; I10 Essential (primary) hypertension; Z20.822 Contact with and (suspected) exposure to COVID-19
CPT/HCPCS: 36415; 71045; 80053; 83605; 84484; 85025; 85379; 87040; 87635; 93005; 93010; 99284; 99285; A9270; U0002

== ENCOUNTER 2022-05-09 03:49 | Emergency (ER) | payer MEDICAID ==
[2022-05-09] MEDS ORDERED: Lidocaine 2% Viscous Solution 15 ML UD PO ONE (03:59)
[2022-05-09] MEDS ORDERED: Ketorolac 30 MG/ML SDV IM ONE (04:19)
[2022-05-09] MEDS ORDERED: Acetaminophen 500 MG Tab PO ONE (04:19)
[2022-05-09 04:34] VITALS: BP 124/81; PULSE 69
[2022-05-09] MEDS ORDERED: Clindamycin HCl 150 MG Cap PO ONE (04:38)
== END 2022-05-09 04:51 | disposition home or self-care (01) ==
LOC: DL.ED 03:49
DX: K04.7 Periapical abscess without sinus (principal); I25.10 Atherosclerotic heart disease of native coronary artery without angina pectoris; E78.00 Pure hypercholesterolemia, unspecified; I10 Essential (primary) hypertension; E11.9 Type 2 diabetes mellitus without complications; Z88.0 Allergy status to penicillin; Z88.5 Allergy status to narcotic agent; Z86.16 Personal history of COVID-19
CPT/HCPCS: 64400; 96372; 99282-25; 99283; A9270-GY; J1885

== ENCOUNTER 2022-06-01 20:20 | Emergency (ER) | payer MEDICAID | END 2022-06-01 23:00 | disposition left against medical advice (07) | LOC: DL.ED 20:20 | DX: Z53.21 Procedure and treatment not carried out due to patient leaving prior to being seen by health care provider (principal) ==

== ENCOUNTER 2022-06-11 19:46 | Emergency (ER) | payer MEDICAID ==
[2022-06-11 20:44] VITALS: BP 114/63; PULSE 66
== END 2022-06-11 23:33 | disposition left against medical advice (07) ==
LOC: DL.ED 19:46
DX: Z53.21 Procedure and treatment not carried out due to patient leaving prior to being seen by health care provider (principal)

== ENCOUNTER 2022-06-17 10:56 | Emergency (ER) | payer MEDICAID ==
[2022-06-17 11:19] VITALS: BP 117/74; PULSE 62
[2022-06-17 12:20] LABS: ANION GAP 12.2 mEq/L (7-13); CHLORIDE,CL 108 mmol/L (98-107); ESTIMATED GFR 114 mL/min (>=60); SODIUM,NA 143 mmol/L (136-145)
== END 2022-06-17 13:11 | disposition home or self-care (01) ==
LOC: DL.ED 10:56
DX: R07.89 Other chest pain (principal); G89.29 Other chronic pain; F41.9 Anxiety disorder, unspecified; M79.642 Pain in left hand; I25.10 Atherosclerotic heart disease of native coronary artery without angina pectoris; E78.00 Pure hypercholesterolemia, unspecified; I10 Essential (primary) hypertension; E11.9 Type 2 diabetes mellitus without complications; Z86.16 Personal history of COVID-19; Z88.0 Allergy status to penicillin; Z88.5 Allergy status to narcotic agent; Z20.822 Contact with and (suspected) exposure to COVID-19
CPT/HCPCS: 36415; 71045; 80053; 84484; 85025; 86140; 93005; 93010; 99284; 99285; U0002

== ENCOUNTER 2022-07-02 20:45 | Emergency (ER) | payer MEDICAID ==
[2022-07-02 20:58] VITALS: PULSE 76
[2022-07-02] MEDS ORDERED: Ondansetron 4 MG/2 ML SDV IVPUSH ONE (21:06)
[2022-07-02] MEDS ORDERED: HYDROmorphone 0.5 MG/0.5 ML Syringe IVPUSH ONE (21:15)
[2022-07-02 21:54] VITALS: BP 110/69
[2022-07-02] MEDS ORDERED: Iopamidol 612 MG/ML 100 ML Bottle IVPUSH ONE (22:05)
[2022-07-02] MEDS ORDERED: Iopamidol 612 MG/ML 50 ML SDV IVPUSH ONE (22:20)
== END 2022-07-02 23:23 | disposition home or self-care (01) ==
LOC: DL.ED 20:45
DX: K52.9 Noninfective gastroenteritis and colitis, unspecified (principal); I25.10 Atherosclerotic heart disease of native coronary artery without angina pectoris; I10 Essential (primary) hypertension; E11.9 Type 2 diabetes mellitus without complications; Z88.0 Allergy status to penicillin; Z88.5 Allergy status to narcotic agent; Z79.899 Other long term (current) drug therapy; Z86.16 Personal history of COVID-19
CPT/HCPCS: 36415; 74177; 80053; 80143; 81003; 82140; 82150; 83605; 83690; 83735; 85025; 96374; 96375; 99284-25; J1170; J2405; Q9967

== ENCOUNTER 2022-08-02 08:46 | Emergency (ER) | payer MEDICAID ==
[2022-08-02] MEDS ORDERED: Polymyxin B/Trimethoprim 10 ML Bottle EYEBOTH ONE (21:23)
== END 2022-08-02 21:50 | disposition home or self-care (01) ==
LOC: DL.ED 08:46
DX: H10.9 Unspecified conjunctivitis (principal)
CPT/HCPCS: 99283; A9270

== ENCOUNTER 2022-08-12 11:19 | Emergency (ER) | payer MEDICAID ==
[2022-08-12] MEDS ORDERED: Ketorolac 10 MG Tab PO ONE (11:20)
[2022-08-12] MEDS ORDERED: Cyclobenzaprine 10 MG Tab PO ONE (11:20)
[2022-08-13] MEDS ORDERED: Ketorolac 30 MG/ML SDV IM ONE (00:03)
== END 2022-08-13 00:22 | disposition home or self-care (01) ==
LOC: DL.ED 11:19
DX: M54.50 Low back pain, unspecified (principal); E66.9 Obesity, unspecified
CPT/HCPCS: 96372; 99283; A9270; J1885

== ENCOUNTER 2022-10-14 18:17 | Emergency (ER) | payer MEDICAID ==
[2022-10-14 20:22] VITALS: BP 121/72
[2022-10-14 21:07] LABS: CORONAVIRUS COVID-19 NAA POSITIVE (NEGATIVE); RESPIRATORY SYNCYTIAL VIR NAA NEGATIVE (NEGATIVE)
[2022-10-14 21:21] VITALS: PULSE 74
== END 2022-10-14 22:43 | disposition home or self-care (01) ==
LOC: DL.ED 18:17
DX: U07.1 COVID-19 (principal); I25.10 Atherosclerotic heart disease of native coronary artery without angina pectoris; E78.00 Pure hypercholesterolemia, unspecified; I10 Essential (primary) hypertension; E11.9 Type 2 diabetes mellitus without complications; Z88.0 Allergy status to penicillin; Z88.5 Allergy status to narcotic agent; Z79.899 Other long term (current) drug therapy
CPT/HCPCS: 0241U; 99283

== ENCOUNTER 2022-12-16 19:56 | Emergency (ER) | payer MEDICAID ==
[2022-12-16] MEDS ORDERED: Sodium Chloride 0.9% 10 ML Syringe FLUSH PRN (20:09)
[2022-12-16] MEDS ORDERED: Ketorolac 30 MG/ML SDV IVPUSH ONE (20:17)
[2022-12-16 20:28] VITALS: BP 140/87; PULSE 63
[2022-12-16 20:51] LABS: ANION GAP 13.9 mEq/L (7-13)
== END 2022-12-16 21:20 | disposition home or self-care (01) ==
LOC: DL.ED 19:56
DX: R07.89 Other chest pain (principal); I25.10 Atherosclerotic heart disease of native coronary artery without angina pectoris; I10 Essential (primary) hypertension; E78.00 Pure hypercholesterolemia, unspecified; E11.9 Type 2 diabetes mellitus without complications; Z88.0 Allergy status to penicillin; Z88.5 Allergy status to narcotic agent; Z79.899 Other long term (current) drug therapy
CPT/HCPCS: 36415; 80053; 83880; 84484; 85025; 93005; 93010; 96374; 99284; 99285-25; J1885; J3490

== ENCOUNTER 2022-12-23 13:20 | Emergency (ER) | payer MEDICAID ==
[2022-12-23 13:37] VITALS: BP 131/74; PULSE 64
[2022-12-23 14:23] LABS: CORONAVIRUS COVID-19 NAA NEGATIVE (NEGATIVE); RESPIRATORY SYNCYTIAL VIR NAA NEGATIVE (NEGATIVE)
== END 2022-12-23 14:33 | disposition home or self-care (01) ==
LOC: DL.ED 13:20
DX: J06.9 Acute upper respiratory infection, unspecified (principal); I25.10 Atherosclerotic heart disease of native coronary artery without angina pectoris; E78.00 Pure hypercholesterolemia, unspecified; I10 Essential (primary) hypertension; E11.9 Type 2 diabetes mellitus without complications; Z88.0 Allergy status to penicillin; Z88.5 Allergy status to narcotic agent; Z86.16 Personal history of COVID-19; Z79.899 Other long term (current) drug therapy; Z20.822 Contact with and (suspected) exposure to COVID-19
CPT/HCPCS: 0241U; 99283; 99284

== ENCOUNTER 2023-01-18 18:43 | Emergency (ER) | payer MEDICAID ==
[2023-01-18 19:11] VITALS: BP 148/82; PULSE 82
== END 2023-01-18 19:45 | disposition home or self-care (01) ==
LOC: DL.ED 18:43
DX: M25.571 Pain in right ankle and joints of right foot (principal); I25.10 Atherosclerotic heart disease of native coronary artery without angina pectoris; E78.00 Pure hypercholesterolemia, unspecified; I10 Essential (primary) hypertension; E11.9 Type 2 diabetes mellitus without complications; Z86.16 Personal history of COVID-19; Z88.0 Allergy status to penicillin; Z88.5 Allergy status to narcotic agent; Z79.899 Other long term (current) drug therapy
CPT/HCPCS: 73610-RT; 99283

== ENCOUNTER 2023-01-22 14:05 | Emergency (ER) | payer MEDICAID ==
[2023-01-22] MEDS ORDERED: Sodium Chloride 0.9% 10 ML Syringe FLUSH PRN (14:13)
[2023-01-22 14:20] VITALS: BP 104/64; PULSE 84
[2023-01-22] MEDS ORDERED: GI Cocktail Oral Solution 30 ML PO ONE (14:20)
[2023-01-22 14:49] LABS: ANION GAP 12.9 mEq/L (7-13)
== END 2023-01-22 15:12 | disposition home or self-care (01) ==
LOC: DL.ED 14:05
DX: K21.9 Gastro-esophageal reflux disease without esophagitis (principal); E11.9 Type 2 diabetes mellitus without complications; I25.10 Atherosclerotic heart disease of native coronary artery without angina pectoris; E78.00 Pure hypercholesterolemia, unspecified; I10 Essential (primary) hypertension; Z86.16 Personal history of COVID-19; Z88.0 Allergy status to penicillin; Z88.5 Allergy status to narcotic agent; Z79.899 Other long term (current) drug therapy
CPT/HCPCS: 36415; 71046; 80053; 81001; 84484; 85025; 93005; 93010; 99284; 99285; A9270; J3490

== ENCOUNTER 2023-02-07 17:54 | Emergency (ER) | payer MEDICAID ==
[2023-02-07 19:34] VITALS: BP 126/83; PULSE 83
== END 2023-02-07 19:09 | disposition home or self-care (01) ==
LOC: DL.ED 17:54
DX: R07.81 Pleurodynia (principal); S80.212A Abrasion, left knee, initial encounter; I25.10 Atherosclerotic heart disease of native coronary artery without angina pectoris; E78.00 Pure hypercholesterolemia, unspecified; E11.9 Type 2 diabetes mellitus without complications; I10 Essential (primary) hypertension; Z88.0 Allergy status to penicillin; Z88.5 Allergy status to narcotic agent; Z86.16 Personal history of COVID-19; V18.9XXA Unspecified pedal cyclist injured in noncollision transport accident in traffic accident, initial encounter
CPT/HCPCS: 71101-LT; 99283

== ENCOUNTER 2023-02-13 18:44 | Emergency (ER) | payer MEDICAID ==
[2023-02-13 18:55] VITALS: BP 117/79; PULSE 79
[2023-02-13 19:38] LABS: ANION GAP 14.7 mEq/L (7-13)
== END 2023-02-13 19:53 | disposition home or self-care (01) ==
LOC: DL.ED 18:44
DX: R07.89 Other chest pain (principal); I25.10 Atherosclerotic heart disease of native coronary artery without angina pectoris; E78.00 Pure hypercholesterolemia, unspecified; I10 Essential (primary) hypertension; E11.9 Type 2 diabetes mellitus without complications; Z88.0 Allergy status to penicillin; Z88.5 Allergy status to narcotic agent; Z86.16 Personal history of COVID-19; Z79.899 Other long term (current) drug therapy
CPT/HCPCS: 36415; 71046; 80053; 83605; 84484; 85025; 93005; 93010; 99284; 99285

== ENCOUNTER 2023-03-04 03:33 | Emergency (ER) | payer MEDICAID ==
[2023-03-04 03:59] VITALS: BP 131/78; PULSE 56
[2023-03-04] MEDS ORDERED: Albuterol/Ipratropium 3.0-0.5 MG/3 ML Neb Soln NEB ONE (04:32)
[2023-03-04 04:56] LABS: CORONAVIRUS COVID-19 NAA NEGATIVE (NEGATIVE); INFLUENZA A NAA NEGATIVE (NEGATIVE); INFLUENZA B NAA NEGATIVE (NEGATIVE); RESPIRATORY SYNCYTIAL VIR NAA NEGATIVE (NEGATIVE)
[2023-03-04] MEDS ORDERED: Polymyxin B/Trimethoprim 10 ML Bottle EYEBOTH ONE (05:26)
[2023-03-04] MEDS ORDERED: Acetaminophen 500 MG Tab PO ONE (05:26)
[2023-03-04] MEDS ORDERED: Albuterol 6.7 GM Inhaler INH ONE (05:38)
== END 2023-03-04 05:49 | disposition home or self-care (01) ==
LOC: DL.ED 03:33
DX: J06.9 Acute upper respiratory infection, unspecified (principal); B97.89 Other viral agents as the cause of diseases classified elsewhere; H10.33 Unspecified acute conjunctivitis, bilateral; B96.89 Other specified bacterial agents as the cause of diseases classified elsewhere; I25.10 Atherosclerotic heart disease of native coronary artery without angina pectoris; E78.00 Pure hypercholesterolemia, unspecified; I10 Essential (primary) hypertension; E11.9 Type 2 diabetes mellitus without complications; Z88.0 Allergy status to penicillin; Z88.5 Allergy status to narcotic agent; Z86.16 Personal history of COVID-19; Z79.899 Other long term (current) drug therapy; Z20.822 Contact with and (suspected) exposure to COVID-19
CPT/HCPCS: 0241U; 87081; 87430; 94640; 99284; A9270; J7620-GY

== ENCOUNTER 2023-11-13 17:21 | Emergency (ER) | payer MEDICAID ==
[2023-11-13 18:21] VITALS: BP 107/63; PULSE 72
[2023-11-13] MEDS ORDERED: Dexamethasone 4 MG/ML SDV IM ONE (18:21)
== END 2023-11-13 18:43 | disposition home or self-care (01) ==
LOC: DL.ED 17:21
DX: S39.012A Strain of muscle, fascia and tendon of lower back, initial encounter (principal); I25.10 Atherosclerotic heart disease of native coronary artery without angina pectoris; E78.00 Pure hypercholesterolemia, unspecified; E11.9 Type 2 diabetes mellitus without complications; E66.9 Obesity, unspecified; Z88.0 Allergy status to penicillin; Z88.6 Allergy status to analgesic agent; Z79.899 Other long term (current) drug therapy; Z68.42 Body mass index [BMI] 45.0-49.9, adult; X58.XXXA Exposure to other specified factors, initial encounter
CPT/HCPCS: 96372; 99283; J1100

== ENCOUNTER 2023-11-15 19:04 | Emergency (ER) | payer MEDICAID ==
[2023-11-15 19:41] LABS: BASOPHILS PERCENT AUTO 0.1 % (0.0-1.0); EOSINOPHILS PERCENT AUTO 1.1 % (1.0-3.0); HEMATOCRIT 45.7 % (40.0-54.0); HEMOGLOBIN 14.9 g/dL (14.0-18.0); LYMPHOCYTES PERCENT AUTO 36.6 % (20.5-50.1); MEAN CORPUSCULAR HGB CONC 32.6 g/dL (33.0-35.0); MEAN CORPUSCULAR VOLUME 85.9 fL (80-100); MONOCYTES PERCENT AUTO 10.3 % (2-8); NEUTROPHILS PERCENT AUTO 51.9 % (42.2-75.2); PLATELET COUNT,PLT 285 10^3/uL (150-450); RED BLOOD CELL COUNT 5.32 10^6/uL (4.6-6.2); WHITE BLOOD CELL COUNT,WBC 8.9 10^3/uL (5.0-10.0)
[2023-11-15] MEDS: Sodium Chloride 0.9% 10 ML Syringe FLUSH PRN (19:45)
[2023-11-15 20:01] VITALS: BP 133/85; PULSE 62
[2023-11-15 20:12] LABS: INR 0.9 (0.9-1.2); PROTHROMBIN TIME 9.7 SEC (9.0-12.0); PTT,PARTIAL THROMBOPLSTIN TIME 25.9 SEC (22.0-34.0)
[2023-11-15 20:17] LABS: CORONAVIRUS COVID-19 NAA NEGATIVE (NEGATIVE); INFLUENZA A NAA NEGATIVE (NEGATIVE); INFLUENZA B NAA NEGATIVE (NEGATIVE); RESPIRATORY SYNCYTIAL VIR NAA NEGATIVE (NEGATIVE)
[2023-11-15 20:20] LABS: ALBUMIN 3.6 g/dL (3.4-5.0); BILIRUBIN TOTAL 0.3 mg/dL (0.2-1.0); CALCIUM 8.2 mg/dL (8.5-10.1); CREATININE 1.05 mg/dL (0.70-1.30); EST CRCL DRUG DOSING (CG) 96.62 mL/min; PROTEIN TOTAL,TP 7.1 g/dL (6.4-8.2); TSH ULTRASENSITIVE 2.1 uIU/mL (0.36-3.74)
[2023-11-15] MEDS: hydrOXYzine HCl 25 MG Tab PO ONE (20:43)
== END 2023-11-15 20:45 | disposition home or self-care (01) ==
LOC: DL.ED 19:04
DX: R07.9 Chest pain, unspecified (principal); F41.9 Anxiety disorder, unspecified; R20.2 Paresthesia of skin; I10 Essential (primary) hypertension; I25.10 Atherosclerotic heart disease of native coronary artery without angina pectoris; E78.00 Pure hypercholesterolemia, unspecified; E11.9 Type 2 diabetes mellitus without complications; E66.9 Obesity, unspecified; Z88.0 Allergy status to penicillin; Z88.5 Allergy status to narcotic agent; Z79.899 Other long term (current) drug therapy; Z86.16 Personal history of COVID-19; Z20.822 Contact with and (suspected) exposure to COVID-19; Z68.42 Body mass index [BMI] 45.0-49.9, adult
CPT/HCPCS: 0241U; 36415; 71045; 80053; 82947; 83735; 84443; 84484; 85025; 85610; 85730; 93005; 93010; 99284; 99285; A9270-GY; J3490

== ENCOUNTER 2024-01-13 13:14 | Emergency (ER) | payer MEDICAID ==
[2024-01-13] MEDS: Take Home: Cyclobenzaprine 10 MG Tab, 4 Tab Pack PO ONE (15:40)
== END 2024-01-13 15:47 | disposition home or self-care (01) ==
LOC: DL.ED 13:14
DX: M54.41 Lumbago with sciatica, right side (principal); I10 Essential (primary) hypertension; Z79.899 Other long term (current) drug therapy; Z88.5 Allergy status to narcotic agent; Z88.0 Allergy status to penicillin; Z86.16 Personal history of COVID-19
CPT/HCPCS: 99283; A9270

== ENCOUNTER 2024-02-10 20:17 | Emergency (ER) | payer MEDICAID ==
[2024-02-10 22:31] LABS: BASOPHILS PERCENT AUTO 0.3 % (0.0-1.0); EOSINOPHILS PERCENT AUTO 6.9 % (1.0-3.0); HEMOGLOBIN 13.8 g/dL (14.0-18.0); LYMPHOCYTES PERCENT AUTO 28.2 % (20.5-50.1); MEAN CORPUSCULAR HEMOGLOBIN 28.6 pg (27.0-34.0); MEAN CORPUSCULAR HGB CONC 32.9 g/dL (33.0-35.0); NEUTROPHILS PERCENT AUTO 53.6 % (42.2-75.2); PLATELET COUNT,PLT 235 10^3/uL (150-450); RED BLOOD CELL COUNT 4.83 10^6/uL (4.6-6.2); WHITE BLOOD CELL COUNT,WBC 6.9 10^3/uL (5.0-10.0)
[2024-02-10 22:51] LABS: ALBUMIN 3.2 g/dL (3.4-5.0); ANION GAP 11.1 mEq/L (7-13); BILIRUBIN TOTAL 0.2 mg/dL (0.2-1.0); BUN/CREATININE RATIO 17.3 (No establ ref range); CALCIUM 8.1 mg/dL (8.5-10.1); CREATININE 0.75 mg/dL (0.70-1.30); EST CRCL DRUG DOSING (CG) 135.26 mL/min; POTASSIUM,K 4.1 mmol/L (3.5-5.1); PROTEIN TOTAL,TP 6.7 g/dL (6.4-8.2)
[2024-02-10 22:53] LABS: A/G RATIO 0.91
[2024-02-10 22:58] LABS: CORONAVIRUS COVID-19 NAA NEGATIVE (NEGATIVE); INFLUENZA A NAA NEGATIVE (NEGATIVE); INFLUENZA B NAA NEGATIVE (NEGATIVE); RESPIRATORY SYNCYTIAL VIR NAA NEGATIVE (NEGATIVE)
[2024-02-11 00:40] VITALS: BP 124/83; PULSE 63
== END 2024-02-11 00:35 | disposition home or self-care (01) ==
LOC: DL.ED 20:17
DX: S39.012A Strain of muscle, fascia and tendon of lower back, initial encounter (principal); J06.9 Acute upper respiratory infection, unspecified; I10 Essential (primary) hypertension; E78.00 Pure hypercholesterolemia, unspecified; Z88.0 Allergy status to penicillin; Z88.5 Allergy status to narcotic agent; Z86.16 Personal history of COVID-19; Z79.51 Long term (current) use of inhaled steroids; Z79.899 Other long term (current) drug therapy; Z87.891 Personal history of nicotine dependence; X58.XXXA Exposure to other specified factors, initial encounter
CPT/HCPCS: 0241U; 36415; 71046; 80053; 85025; 99283; 99284

== ENCOUNTER 2024-03-06 03:22 | Emergency (ER) | payer MEDICAID ==
[2024-03-06 03:47] VITALS: BP 133/95; PULSE 58
[2024-03-06 04:09] LABS: BASOPHILS PERCENT AUTO 0.3 % (0.0-1.0); EOSINOPHILS PERCENT AUTO 6.5 % (1.0-3.0); HEMATOCRIT 43.3 % (40.0-54.0); HEMOGLOBIN 14.1 g/dL (14.0-18.0); LYMPHOCYTES PERCENT AUTO 40.1 % (20.5-50.1); MEAN CORPUSCULAR HEMOGLOBIN 28.5 pg (27.0-34.0); MEAN CORPUSCULAR HGB CONC 32.6 g/dL (33.0-35.0); MEAN CORPUSCULAR VOLUME 87.5 fL (80-100); MONOCYTES PERCENT AUTO 9.6 % (2-8); NEUTROPHILS PERCENT AUTO 43.5 % (42.2-75.2); PLATELET COUNT,PLT 261 10^3/uL (150-450); RED BLOOD CELL COUNT 4.95 10^6/uL (4.6-6.2); WHITE BLOOD CELL COUNT,WBC 7.9 10^3/uL (5.0-10.0)
[2024-03-06] MEDS: Aspirin 81 MG Tab.Chew PO ONE (04:15)
[2024-03-06 04:33] LABS: D-DIMER QUANTITATIVE < 100 ng/mL (0-400)
[2024-03-06 04:59] LABS: ANION GAP 12.1 mEq/L (7-13); BUN/CREATININE RATIO 13.7 (No establ ref range); CREATININE 0.95 mg/dL (0.70-1.30); EST CRCL DRUG DOSING (CG) 106.79 mL/min; POTASSIUM,K 3.9 mmol/L (3.5-5.1)
[2024-03-06 05:00] LABS: A/G RATIO 0.94; ALBUMIN 3.2 g/dL (3.4-5.0); BILIRUBIN TOTAL 0.2 mg/dL (0.2-1.0); CALCIUM 7.8 mg/dL (8.5-10.1); MAGNESIUM 1.8 mg/dL (1.8-2.4); PROTEIN TOTAL,TP 6.6 g/dL (6.4-8.2)
[2024-03-06] MEDS: Ketorolac 30 MG/ML SDV IVPUSH ONE (05:08)
== END 2024-03-06 05:27 | disposition home or self-care (01) ==
LOC: DL.ED 03:22
DX: I20.9 Angina pectoris, unspecified (principal); I10 Essential (primary) hypertension; E66.9 Obesity, unspecified; E78.00 Pure hypercholesterolemia, unspecified; Z88.0 Allergy status to penicillin; Z88.6 Allergy status to analgesic agent; Z79.899 Other long term (current) drug therapy; Z86.16 Personal history of COVID-19; Z68.42 Body mass index [BMI] 45.0-49.9, adult
CPT/HCPCS: 36415; 80053; 83735; 83880; 84484; 85025; 85379; 85610; 93005; 93010; 96374; 99284; 99285-25; A9270-GY; J1885

== ENCOUNTER 2024-03-08 18:26 | Emergency (ER) | payer MEDICAID ==
[2024-03-08 19:18] LABS: BASOPHILS PERCENT AUTO 0.3 % (0.0-1.0); HEMATOCRIT 42.3 % (40.0-54.0); HEMOGLOBIN 13.8 g/dL (14.0-18.0); LYMPHOCYTES PERCENT AUTO 18.4 % (20.5-50.1); MEAN CORPUSCULAR HEMOGLOBIN 28.2 pg (27.0-34.0); MEAN CORPUSCULAR HGB CONC 32.6 g/dL (33.0-35.0); MEAN CORPUSCULAR VOLUME 86.3 fL (80-100); MONOCYTES PERCENT AUTO 7.9 % (2-8); NEUTROPHILS PERCENT AUTO 70.4 % (42.2-75.2); PLATELET COUNT,PLT 250 10^3/uL (150-450)
[2024-03-08] MEDS: Albuterol/Ipratropium 3.0-0.5 MG/3 ML Neb Soln NEB ONE (19:41)
[2024-03-08 20:11] LABS: CORONAVIRUS COVID-19 NAA NEGATIVE (NEGATIVE); INFLUENZA A NAA NEGATIVE (NEGATIVE); INFLUENZA B NAA NEGATIVE (NEGATIVE); RESPIRATORY SYNCYTIAL VIR NAA NEGATIVE (NEGATIVE)
[2024-03-08 20:17] LABS: ALBUMIN 3.8 g/dL (3.4-5.0); ANION GAP 13.2 mEq/L (7-13); BILIRUBIN TOTAL 0.4 mg/dL (0.2-1.0); BUN/CREATININE RATIO 16.1 (No establ ref range); CALCIUM 8.3 mg/dL (8.5-10.1); CREATININE 0.93 mg/dL (0.70-1.30); EST CRCL DRUG DOSING (CG) 109.08 mL/min; MAGNESIUM 1.8 mg/dL (1.8-2.4); POTASSIUM,K 4.2 mmol/L (3.5-5.1); PROTEIN TOTAL,TP 7.6 g/dL (6.4-8.2)
[2024-03-08 20:20] LABS: LACTIC ACID 1.1 mmol/L (0.4-2.0)
[2024-03-08] MEDS: methylPREDNISolone Sodium Succinate 125 MG/2 ML SDV IVPUSH ONE (21:14)
[2024-03-08 21:40] VITALS: BP 120/82; PULSE 70
== END 2024-03-08 21:35 | disposition home or self-care (01) ==
LOC: DL.ED 18:26
DX: J06.9 Acute upper respiratory infection, unspecified (principal); I10 Essential (primary) hypertension; E78.00 Pure hypercholesterolemia, unspecified; E66.9 Obesity, unspecified; Z88.0 Allergy status to penicillin; Z88.5 Allergy status to narcotic agent; Z79.51 Long term (current) use of inhaled steroids; Z79.899 Other long term (current) drug therapy; Z86.16 Personal history of COVID-19; Z68.42 Body mass index [BMI] 45.0-49.9, adult
CPT/HCPCS: 0241U; 36415; 71046; 80053; 82550; 83605; 83735; 83880; 84484; 85025; 85379; 93005; 94640; 96374; 99285; J2930; 93010; 99284; J7620-GY

== ENCOUNTER 2024-05-01 17:47 | Emergency (ER) | payer MEDICAID ==
[2024-05-01 18:28] VITALS: BP 125/100; PULSE 63
== END 2024-05-01 20:45 | disposition home or self-care (01) ==
LOC: DL.ED 17:47
DX: J06.9 Acute upper respiratory infection, unspecified (principal); R05.9 Cough, unspecified; I10 Essential (primary) hypertension; E66.9 Obesity, unspecified; Z79.899 Other long term (current) drug therapy; Z88.0 Allergy status to penicillin; Z88.5 Allergy status to narcotic agent
CPT/HCPCS: 87081; 87430; 87804; 99283; U0002

== ENCOUNTER 2024-05-21 20:53 | Emergency (ER) | payer MEDICAID ==
[2024-05-21 21:31] VITALS: BP 135/81; PULSE 66
[2024-05-21] MEDS: Ketorolac 30 MG/ML SDV IM ONE (21:40)
== END 2024-05-21 21:47 | disposition home or self-care (01) ==
LOC: DL.ED 20:53
DX: R59.1 Generalized enlarged lymph nodes (principal); I10 Essential (primary) hypertension; E66.9 Obesity, unspecified; Z88.0 Allergy status to penicillin; Z88.8 Allergy status to other drugs, medicaments and biological substances
CPT/HCPCS: 96372; 99283; J1885

== ENCOUNTER 2024-05-31 19:37 | Emergency (ER) | payer MEDICAID ==
[2024-05-31 22:31] VITALS: BP 136/84; PULSE 76
== END 2024-05-31 23:10 | disposition home or self-care (01) ==
LOC: DL.ED 19:37
DX: J06.9 Acute upper respiratory infection, unspecified (principal); I10 Essential (primary) hypertension; E78.00 Pure hypercholesterolemia, unspecified; K21.9 Gastro-esophageal reflux disease without esophagitis; Z87.891 Personal history of nicotine dependence; Z88.0 Allergy status to penicillin; Z88.5 Allergy status to narcotic agent
CPT/HCPCS: 99283; U0002

== ENCOUNTER 2024-06-09 18:04 | Emergency (ER) | payer MEDICAID ==
[2024-06-09 19:08] VITALS: BP 122/76; PULSE 89
== END 2024-06-09 20:34 | disposition home or self-care (01) ==
LOC: DL.ED 18:04
DX: M25.562 Pain in left knee (principal); I10 Essential (primary) hypertension; E78.00 Pure hypercholesterolemia, unspecified; K21.9 Gastro-esophageal reflux disease without esophagitis; Z87.891 Personal history of nicotine dependence; E66.01 Morbid (severe) obesity due to excess calories; Z68.42 Body mass index [BMI] 45.0-49.9, adult; Z88.0 Allergy status to penicillin; Z88.5 Allergy status to narcotic agent; Z79.899 Other long term (current) drug therapy
CPT/HCPCS: 73562-LT; 99283

== ENCOUNTER 2024-09-20 20:26 | Emergency (ER) | payer MEDICAID ==
[2024-09-20 20:44] LABS: APPEARANCE,URINE SLIGHTLY CLOUDY (CLEAR); BILIRUBIN,URINE NEGATIVE (NEGATIVE); COLOR,URINE YELLOW (YELLOW); GLUCOSE,URINE NEGATIVE (NEGATIVE); KETONES,URINE NEGATIVE (NEGATIVE); LEUKOCYTE ESTERASE,URINE SMALL (NEGATIVE); NITRITE,URINE NEGATIVE (NEGATIVE); OCCULT BLOOD,URINE TRACE-INTACT (NEGATIVE); PROTEIN,URINE NEGATIVE (NEGATIVE); UROBILINOGEN,URINE 0.2 mg/dL (0.2-1.0)
[2024-09-20 20:51] LABS: RBC,URINE 0-5 /HPF (0-5); WBC,URINE 40-50 /HPF (0-5/HPF)
[2024-09-20 20:52] LABS: BACTERIA,URINE FEW /HPF (0-FEW/HPF); EPITHELIAL CELLS,URINE FEW /HPF (NOT SEEN); MUCUS,URINE RARE /LPF (NOT SEEN)
[2024-09-20 21:30] VITALS: BP 126/65; PULSE 63
[2024-09-20] MEDS: Nystatin Crm 15 GM Tube TOP ONE (22:21)
== END 2024-09-20 22:36 | disposition home or self-care (01) ==
LOC: DL.ED 20:26
DX: B37.2 Candidiasis of skin and nail (principal); N48.89 Other specified disorders of penis; I10 Essential (primary) hypertension; E66.9 Obesity, unspecified; Z88.0 Allergy status to penicillin; Z88.5 Allergy status to narcotic agent; Z79.899 Other long term (current) drug therapy
CPT/HCPCS: 81001; 87086; 99283; A9270

== ENCOUNTER 2024-09-27 23:18 | Emergency (ER) | payer MEDICAID ==
[2024-09-27 23:27] VITALS: BP 131/71; PULSE 66
== END 2024-09-28 00:49 | disposition home or self-care (01) ==
LOC: DL.ED 23:18
DX: S63.502A Unspecified sprain of left wrist, initial encounter (principal); I10 Essential (primary) hypertension; E78.00 Pure hypercholesterolemia, unspecified; E66.9 Obesity, unspecified; Z88.0 Allergy status to penicillin; Z88.8 Allergy status to other drugs, medicaments and biological substances; X50.9XXA Other and unspecified overexertion or strenuous movements or postures, initial encounter; Y99.0 Civilian activity done for income or pay; Y92.89 Other specified places as the place of occurrence of the external cause
CPT/HCPCS: 73090-LT; 99282; 99283

== ENCOUNTER 2024-11-11 20:48 | Emergency (ER) | payer MEDICAID ==
[2024-11-11] MEDS: Ketorolac 30 MG/ML SDV IM ONE (21:03)
[2024-11-11 21:10] VITALS: BP 143/81; PULSE 67
== END 2024-11-11 21:12 | disposition home or self-care (01) ==
LOC: DL.ED 20:48
DX: M62.830 Muscle spasm of back (principal); I10 Essential (primary) hypertension; E78.00 Pure hypercholesterolemia, unspecified; Z88.0 Allergy status to penicillin; Z88.5 Allergy status to narcotic agent
CPT/HCPCS: 96372; 99284; J1885

== ENCOUNTER 2024-12-20 21:30 | Emergency (ER) | payer MEDICAID ==
[2024-12-20 21:43] VITALS: BP 136/71; PULSE 71
== END 2024-12-20 21:50 | disposition home or self-care (01) ==
LOC: DL.ED 21:30
DX: J01.90 Acute sinusitis, unspecified (principal); I10 Essential (primary) hypertension; E66.9 Obesity, unspecified; Z79.899 Other long term (current) drug therapy; Z88.0 Allergy status to penicillin; Z88.5 Allergy status to narcotic agent; Z68.42 Body mass index [BMI] 45.0-49.9, adult
CPT/HCPCS: 99283

== ENCOUNTER 2025-02-12 21:54 | Emergency (ER) | payer MEDICAID ==
[2025-02-12 22:42] VITALS: BP 118/61; PULSE 61
[2025-02-13] MEDS ORDERED: Magnesium Oxide 400 MG Tab PO ONE (22:43)
== END 2025-02-12 22:51 | disposition home or self-care (01) ==
LOC: DL.ED 21:54
DX: M62.838 Other muscle spasm (principal); I10 Essential (primary) hypertension; E66.9 Obesity, unspecified; Z88.0 Allergy status to penicillin; Z88.8 Allergy status to other drugs, medicaments and biological substances; Z79.899 Other long term (current) drug therapy
CPT/HCPCS: 99283

== ENCOUNTER 2025-03-17 09:40 | Emergency (ER) | payer MEDICAID ==
[2025-03-17 10:33] LABS: BASOPHILS PERCENT AUTO 0.4 % (0.0-1.0); EOSINOPHILS PERCENT AUTO 4.9 % (1.0-3.0); HEMATOCRIT 45.4 % (40.0-54.0); HEMOGLOBIN 14.5 g/dL (14.0-18.0); LYMPHOCYTES PERCENT AUTO 23.7 % (20.5-50.1); MEAN CORPUSCULAR HEMOGLOBIN 27.7 pg (27.0-34.0); MEAN CORPUSCULAR HGB CONC 31.9 g/dL (33.0-35.0); MEAN CORPUSCULAR VOLUME 86.6 fL (80-100); MONOCYTES PERCENT AUTO 10.8 % (2-8); NEUTROPHILS PERCENT AUTO 60.2 % (42.2-75.2); PLATELET COUNT,PLT 215 10^3/uL (150-450); RED BLOOD CELL COUNT 5.24 10^6/uL (4.6-6.2); WHITE BLOOD CELL COUNT,WBC 5.6 10^3/uL (5.0-10.0)
[2025-03-17 10:50] LABS: PROTHROMBIN TIME 10.2 SEC (9.0-12.0)
[2025-03-17 10:57] LABS: A/G RATIO 0.9; ALBUMIN 3.4 g/dL (3.4-5.0); ANION GAP 13.4 mEq/L (7-13); BILIRUBIN TOTAL 0.2 mg/dL (0.2-1.0); BUN/CREATININE RATIO 14.6 (No establ ref range); CALCIUM 8.6 mg/dL (8.5-10.1); CREATININE 0.89 mg/dL (0.70-1.30); EST CRCL DRUG DOSING (CG) 112.81 mL/min; POTASSIUM,K 4.4 mmol/L (3.5-5.1); PROTEIN TOTAL,TP 7.2 g/dL (6.4-8.2)
[2025-03-17] MEDS: Ketorolac 30 MG/ML SDV IM ONE (11:07)
[2025-03-17 11:26] VITALS: BP 112/78; PULSE 61
== END 2025-03-17 11:23 | disposition home or self-care (01) ==
LOC: DL.ED 09:40
DX: M94.0 Chondrocostal junction syndrome [Tietze] (principal); I10 Essential (primary) hypertension; E66.9 Obesity, unspecified; E78.00 Pure hypercholesterolemia, unspecified; Z88.0 Allergy status to penicillin; Z88.8 Allergy status to other drugs, medicaments and biological substances; Z68.42 Body mass index [BMI] 45.0-49.9, adult; Z79.899 Other long term (current) drug therapy
CPT/HCPCS: 36415; 70450; 71046; 80053; 83690; 83735; 83880; 84484; 85025; 85610; 93005; 96372; 99285; J1885; 93010; 99283

== ENCOUNTER 2025-04-21 17:31 | Emergency (ER) | payer MEDICAID ==
[2025-04-21] MEDS: Oxymetazoline 0.05% Nasal Spray 30 ML Bottle NAS ONE (17:55)
[2025-04-21] MEDS: Ketorolac 30 MG/ML SDV IM ONE (17:55)
[2025-04-21 18:04] VITALS: BP 124/67; PULSE 73
== END 2025-04-21 18:01 | disposition home or self-care (01) ==
LOC: DL.ED 17:31
DX: J39.8 Other specified diseases of upper respiratory tract (principal); B97.89 Other viral agents as the cause of diseases classified elsewhere; I10 Essential (primary) hypertension; Z88.0 Allergy status to penicillin; Z88.5 Allergy status to narcotic agent; Z79.899 Other long term (current) drug therapy
CPT/HCPCS: 96372; 99283; A9270; J1885

== ENCOUNTER 2025-05-05 22:09 | Emergency (ER) | payer MEDICAID ==
[2025-05-05 22:20] VITALS: BP 137/88; PULSE 113
== END 2025-05-05 22:50 | disposition home or self-care (01) ==
LOC: DL.ED 22:09
DX: S93.492A Sprain of other ligament of left ankle, initial encounter (principal); I10 Essential (primary) hypertension; E66.9 Obesity, unspecified; Z88.0 Allergy status to penicillin; Z79.899 Other long term (current) drug therapy; X50.1XXA Overexertion from prolonged static or awkward postures, initial encounter
CPT/HCPCS: 73610; 99283; A9270

== ENCOUNTER 2025-06-14 23:00 | Emergency (ER) | payer MEDICAID ==
[2025-06-14 23:11] VITALS: BP 116/56; PULSE 64
[2025-06-15] MEDS: Ketorolac 30 MG/ML SDV IM ONE (00:09)
[2025-06-15 00:25] LABS: BASOPHILS PERCENT AUTO 0.3 % (0.0-1.0); EOSINOPHILS PERCENT AUTO 5.5 % (1.0-3.0); LYMPHOCYTES PERCENT AUTO 30.5 % (20.5-50.1); MONOCYTES PERCENT AUTO 11.3 % (2-8); NEUTROPHILS PERCENT AUTO 52.4 % (42.2-75.2); PLATELET COUNT,PLT 252 10^3/uL (150-450); RED BLOOD CELL COUNT 4.82 10^6/uL (4.6-6.2); WHITE BLOOD CELL COUNT,WBC 7.6 10^3/uL (5.0-10.0)
[2025-06-15 00:34] LABS: A/G RATIO 1.1; ALANINE AMINOTRANSFERASE,ALT 46.0 U/L (16-63); ASPARTATE AMNIOTRANSFERASE,AST 21.0 U/L (15-37); BILIRUBIN TOTAL 0.2 mg/dL (0.2-1.0); BLOOD UREA NITROGEN,BUN 11.0 mg/dL (7-18); CARBON DIOXIDE,CO2 29.0 mmol/L (21-32); CHLORIDE,CL 108.0 mmol/L (98-107); CREATININE 0.84 mg/dL (0.70-1.30); EST CRCL DRUG DOSING (CG) 118.28 mL/min; GLUCOSE RANDOM 128.0 mg/dL (70-99); POTASSIUM,K 4.3 mmol/L (3.5-5.1); PROTEIN TOTAL,TP 6.9 g/dL (6.4-8.2); SODIUM,NA 142.0 mmol/L (136-145)
[2025-06-15 00:38] LABS: ESTIMATED GFR 110.0 mL/min (>=60)
== END 2025-06-15 00:57 | disposition home or self-care (01) ==
LOC: DL.ED 23:00
DX: S29.011A Strain of muscle and tendon of front wall of thorax, initial encounter (principal); E78.00 Pure hypercholesterolemia, unspecified; I10 Essential (primary) hypertension; K21.9 Gastro-esophageal reflux disease without esophagitis; Z88.0 Allergy status to penicillin; Z88.5 Allergy status to narcotic agent; Z79.899 Other long term (current) drug therapy; X50.1XXA Overexertion from prolonged static or awkward postures, initial encounter; Y93.89 Activity, other specified
CPT/HCPCS: 36415; 71046; 80053; 85025; 96372; 99283; 99285; J1885

== ENCOUNTER 2025-07-07 19:44 | Emergency (ER) | payer MEDICAID, OTHER ==
[2025-07-07 20:12] VITALS: BP 129/79; PULSE 60
== END 2025-07-07 20:08 | disposition home or self-care (01) ==
LOC: DL.ED 19:44
DX: S23.29XA Dislocation of other parts of thorax, initial encounter (principal); I10 Essential (primary) hypertension; E66.9 Obesity, unspecified; Z88.0 Allergy status to penicillin; Z88.5 Allergy status to narcotic agent; Z79.899 Other long term (current) drug therapy; Z68.42 Body mass index [BMI] 45.0-49.9, adult; X58.XXXA Exposure to other specified factors, initial encounter
CPT/HCPCS: 99283

== ENCOUNTER 2025-08-18 00:21 | Emergency (ER) | payer MEDICAID, OTHER ==
[2025-08-18] MEDS: Benzocaine/Cetylpyridinium/Menthol Lozenge MUCMEM STA (01:45)
[2025-08-18 02:18] VITALS: BP 134/82; PULSE 70
== END 2025-08-18 01:55 | disposition home or self-care (01) ==
LOC: DL.ED 00:21
DX: J02.9 Acute pharyngitis, unspecified (principal); E78.00 Pure hypercholesterolemia, unspecified; I10 Essential (primary) hypertension; K21.9 Gastro-esophageal reflux disease without esophagitis; Z88.0 Allergy status to penicillin; Z88.5 Allergy status to narcotic agent; Z79.899 Other long term (current) drug therapy
CPT/HCPCS: 87081; 87428; 87430; 99282; 99283; A9270